=== PATIENT | female | born 1935 | race Caucasian/White ===

== ENCOUNTER 2022-11-27 09:14 | Outpatient (OUT) | payer MEDICARE, OTHER, SELFPAY ==
[2022-11-27 09:39] LABS: Basophils Percent Auto 0.4 % (0.2-2.0); Eosinophils Absolute Auto 0.2 10^3/uL (0.0-0.7); Eosinophils Percent Auto 2.2 % (0.9-7.0); Hematocrit 43.9 % (36.0-48.0); Hemoglobin 14.4 g/dL (12.0-16.0); Immature Granulocytes Abs Auto 0.03 10^3/uL (0.00-0.03); Immature Granulocytes Pct Auto 0.3 % (0.0-0.5); Lymphocytes Absolute Auto 1.8 10^3/uL (1.2-3.8); Lymphocytes Percent Auto 18.4 % (20.5-60.0); Mean Corpuscular HGB Conc 32.8 g/dL (29.9-35.2); Mean Corpuscular Hemoglobin 29.7 pg (26.7-34.0); Mean Corpuscular Volume 90.5 fL (81.0-99.0); Mean Platelet Volume 10.1 fL (9.5-13.5); Monocytes Absolute Auto 0.7 10^3/uL (0.3-0.8); Monocytes Percent Auto 6.8 % (1.7-12.0); Neutrophils Absolute Auto 6.9 10^3/uL (1.4-6.5); Neutrophils Percent Auto 71.9 % (43.0-75.0); Platelet Count 229 10^3/uL (150-450); Red Blood Count 4.85 10^6/uL (4.20-5.40); White Blood Count 9.6 10^3/uL (4.0-11.0)
[2022-11-27 09:53] LABS: Alanine Aminotransferase 23 U/L (14-59); Albumin Globulin Ratio 1.2; Albumin Level 4.5 g/dL (3.4-5.0); Alkaline Phosphatase 89 U/L (46-116); Anion Gap 12.8; Aspartate Amino Transferase 18 U/L (15-37); BUN Creatinine Ratio 24.4; Bilirubin Direct 0.2 mg/dL (0.0-0.2); Bilirubin Total 0.8 mg/dL (0.2-1.0); Calcium 9.9 mg/dL (8.5-10.1); Carbon Dioxide 29.8 mmol/L (21.0-32.0); Chloride 102 mmol/L (98-107); Cholesterol 154 mg/dL (<=200); Estimated GFR (African America >60 (>=60); Estimated GFR (Non-African Ame >60 (>=60); Globulin 3.6 g/dL; Glucose 125 mg/dL (74-106); HDL Cholesterol 77 mg/dL (40-60); Potassium 3.6 mmol/L (3.5-5.1); Sodium 141 mmol/L (136-145); Total Protein 8.1 g/dL (6.4-8.2); Triglycerides 95 mg/dL (<=150)
[2022-11-27 10:00] LABS: Estimated Average Glucose 137 mg/dL; Glycohemoglobin A1C 6.4 % (4.5-6.2)
[2022-11-27 10:11] LABS: Microalbumin Urine Random 1.5 mg/dL (<=30.0)
== END 2022-11-27 09:15 | disposition home or self-care (01) ==
LOC: LAB 09:18
PROVIDERS: PCP Family Medicine; Visit Provider Family Medicine
DX: E11.65 Type 2 diabetes mellitus with hyperglycemia (principal); E55.9 Vitamin D deficiency, unspecified; I10 Essential (primary) hypertension; Z79.899 Other long term (current) drug therapy; E78.5 Hyperlipidemia, unspecified
CPT/HCPCS: 36415; 80048; 80061; 80076; 82043; 82306; 83036; 85025

== ENCOUNTER 2023-05-30 11:33 | Outpatient (OUT) | payer MEDICARE, OTHER, SELFPAY ==
[2023-05-30 14:12] LABS: Estimated Average Glucose 143 mg/dL; Glycohemoglobin A1C 6.6 % (4.5-6.2)
== END 2023-05-30 11:34 | disposition home or self-care (01) ==
LOC: LAB 11:35
PROVIDERS: PCP Family Medicine; Visit Provider Family Medicine
DX: E11.65 Type 2 diabetes mellitus with hyperglycemia (principal)
CPT/HCPCS: 36415; 83036

== ENCOUNTER 2023-08-13 15:59 | Outpatient (OUT) | payer MEDICARE, OTHER, SELFPAY ==
--- NOTE | 2023-08-13 16:05 | XR_ITS ---
[address] [address] Patient Name: JOANNE WINSLOW MRN: [id number] date: 1935 Sex: F Assigned Patient Location: [facility] Current Patient Location: Accession/Order Number: [id number] Exam Date: 08/13/2023 16:10 Report Date: 08/14/2023 07:01 At the request of: BASIM NAZARIO Procedure: XR ankle LT min 3V PROCEDURE: XR ankle LT min 3V COMPARISON: None. HISTORY: Acute left ankle pain M25.572 FINDINGS: BONES:Suspected nondisplaced fracture along the inferior medial malleolus measuring 3 mma. Calcific densities along the lateral calcaneus seen on image #2 possibly representing avulsion fractures. Asymmetry of the tibiotalar joint with widening of the lateral joint space suggesting ankle instability. No dislocation. SOFT TISSUES:Moderate diffuse soft tissue swelling EFFUSION:Tibiotalar joint effusion OTHER: Negative. 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
--- OUTSIDE RECORDS SUMMARY | 2023-08-13 16:28 | XMS_ITS | CCD ---
Author Organization [facility] Care Team Providers Care Lens Matcher Name Role Phone MANSI, DR ISMAEL Avila Consulting Unavailable NADERER, DR ISMAEL Avila Primary Care Unavailable NADERER, DR ISMAEL Avila Admitting Unavailable NADERER, DR ISMAEL Avila Attending Unavailable NADERER, DR ISMAEL Avila Consulting Unavailable NADERER, DR ISMAEL Avila Primary Care Unavailable NADERER, DR ISMAEL Avila Admitting Unavailable NADERER, DR ISMAEL Avila Attending Unavailable NADERER, DR ISMAEL Avila Primary Care Unavailable MISC, DR MCKEE Admitting Unavailable MISC, DR MCKEE Attending Unavailable MISC, DR MCKEE Consulting Unavailable NADERER, DR ISMAEL Avila Consulting Unavailable NADERER, DR ISMAEL Avila Primary Care Unavailable NADERER, DR ISMAEL Avila Admitting Unavailable NADERER, DR ISMAEL Avila Attending Unavailable MD Tim Matias Attending Provider [phone] Ismael Nazario MD Primary Care Provider Tim Matias Attending Unavailable Polly, Tim Admitting Unavailable MANSI, ISMAEL Attending Unavailable PETITTKee, FARRAH Avila Attending Unavailable PETITTKee, FARRAH Avila Attending Unavailable SASHA KOCH Attending Unavailable Allergies Allergy Classification Reported Allergen(s) Allergy Type Date of Onset Reaction(s) Facility (1 source) Penicillins Drug allergy (disorder) 05-06-2020 [facility] Repository (4 sources) Omeprazole Drug Allergy 10-11-2022 Unknown [facility] Healthcare (4 sources) Penicillins Drug Allergy 09-11-2016 Itching [facility] Healthcare Medications Current Medications Medication Drug Class(es) Dates Sig (Normalized) Sig (Original) allopurinol 100 mg oral tablet (4 sources) Xanthine Oxidase Inhibitor take 1 tablet by mouth in the morning allopurinol (Zyloprim) 100 MG tablet Take 100 mg by mouth in the morning. 0 Active amLODIPine 5 mg oral tablet (4 sources) Dihydropyridine Calcium Channel Anders take 1 tablet by mouth in the morning amLODIPine (Norvasc) 5 MG tablet Take 5 mg by mouth in the morning. 0 Active atorvastatin 10 mg oral tablet (8 sources) HMG-CoA Reductase Inhibitor Start: 08-05-2022 take 1 tablet by mouth at bedtime atorvastatin (Lipitor) 10 MG tablet Take 10 mg by mouth at bedtime. 0 08/05/2022 Active Calcium Carbonate / Vitamin D (4 sources) take 1 tablet by mouth once in the morning Calcium Carbonate-Vitamin D (OSCAL 500/200 D-3 PO) Take 1 tablet by mouth in the morning and 1 tablet before bedtime. 0 Active fluticasone propionate 0.05 mg/actuat metered dose nasal spray (4 sources) Corticosteroid take 2 spray(s) nasal route in the morning fluticasone (Flonase) 50 MCG/ACT nasal spray Administer 2 sprays into each nostril in the morning. Shake gently. Before first use, prime pump. After use, clean tip and replace cap.. 0 Active losartan potassium 100 mg oral tablet (4 sources) Angiotensin 2 Receptor Anders take 1 tablet by mouth in the morning losartan (Cozaar) 100 MG tablet Take 1 tablet by mouth in the morning. 0 Active Magnesium Oxide (4 sources) take 1 tablet by mouth in the morning MAGNESIUM OXIDE 400 PO Take 1 tablet by mouth in the morning and 1 tablet before bedtime. 0 Active metFORMIN hydrochloride 500 mg oral tablet (4 sources) Biguanide take 1 tablet by mouth in the morning metFORMIN (Glucophage) 500 MG tablet Take 500 mg by mouth in the morning and 500 mg before bedtime. 0 Active omeprazole 20 mg delayed release oral capsule (4 sources) Proton Pump Inhibitor omeprazole (PriLOSEC) [address] capsule 1 capsule 1 (one) time each day at the same time. 0 Active torsemide 5 mg oral tablet (4 sources) Loop Diuretic Start: 09-23-2022 take 0.5 tablet by mouth once daily torsemide (Demadex) 5 MG tablet TAKE 1/2 (ONE-HALF) TABLET BY MOUTH ONCE DAILY 0 09/23/2022 Active triamcinolone acetonide 5 mg/ml topical cream (4 sources) Corticosteroid triamcinolone (Kenalog) 0.5 % cream Apply 1 application topically in the morning and 1 application in the evening and 1 application before bedtime. 0 Active Problems Active Problems Problem Classification Problem Date Documented Da te Episodic/Chronic Chronic kidney disease (4 sources) Chronic kidney disease stage 3; Translations: [Chronic kidney disease, stage III (moderate) (HCC)] Onset: 05-28-2023 05-28-2023 Chronic Diabetes mellitus with complications (9 sources) Type 2 diabetes mellitus with diabetic chronic kidney disease; Translations: [Type 2 diabetes mellitus] Onset: 11-30-2020 Chronic Diabetes mellitus without complication (4 sources) Type 2 diabetes mellitus without complications; Translations: [TYPE 2 DM WITHOUT COMPLICATIONS] Onset: 05-30-2021 Chronic Disorders of lipid metabolism (5 sources) Hyperlipidemia, unspecified; Translations: [Dyslipidemia] Onset: 12-01-2020 05-28-2023 Chronic Essential hypertension (7 sources) Essential (primary) hypertension; Translations: [Benign essential hypertension] Onset: 12-01-2020 05-28-2023 Chronic Gout and other crystal arthropathies (6 sources) Gouty arthropathy; Translations: [Gout, unspecified] Onset: 05-28-2023 05-28-2023 Chronic Hypertension with complications and secondary hypertension (1 source) Hypertensive chronic kidney disease with stage 1 through stage 4 chronic kidney disease, or unspecified chronic kidney disease; Translations: [HTN CKD W/STAGE 1-4 CKD/UNS CKD] Onset: 12-01-2020 Chronic Nutritional deficiencies (4 sources) Vitamin D deficiency; Translations: [Vitamin D deficiency, unspecified] Onset: 05-28-2023 05-28-2023 Chronic Other gastrointestinal disorders (5 sources) Oral phase dysphagia; Translations: [Dysphagia, oral phase] Onset: 05-28-2023 05-28-2023 Episodic Other upper respiratory disease (6 sources) Allergic rhinitis due to pollen; Translations: [Allergic rhinitis due to pollen] Onset: 05-28-2023 05-28-2023 Chronic Spondylosis; intervertebral disc disorders; other back problems (6 sources) Lumbosacral spondylosis without myelopathy; Translations: [Spondylosis without myelopathy or radiculopathy, lumbosacral region] Onset: 05-28-2023 05-28-2023 Chronic Unclassified (1 source) CHRN KIDNEY DISEASE STG 3 UNSP; Translations: [CHRN KIDNEY DISEASE STG 3 UNSP] Onset: 12-01-2020 Unclassified (1 source) 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, including shoulder; Translations: [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, including shoulder] Onset: 04-24-2023 Past or Other Problems Problem Classification Problem Date Documented Da te Episodic/Chronic Other aftercare (1 source) Other usp (current) drug therapy; Translations: [OTH 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 SPECIALIST CURRENT DRUG THERAPY] Onset: 12-01-2020 Episodic Results Test Name Value Interpretation Reference Range Facility [facility] HEMOGLOBIN A1Con 024 Glucose [Mass/Vol] 143 mg/dL [facility] HbA1c (Bld) [Mass fraction] 6.6 % High 4.5 - 6.2 % [facility] Comment on above: ADA RECOMMENDED LIMI T 4.0 - 6.0 ADA THERAPEUTIC TARGET < 7.0 ACTION SUGGESTED > 7.0 Interpretation and review of laboratory results Abnormal [facility] Ernesto 04-24-2023 L --- Specimen: [id number] Received: 04/24/23 Status: BREANNA Sushma Num: [id number] Spec Type: Surgical Subm Dr: Tim Matias MD Tissues: A Skin-Other than Cyst, tag, debridement or plastic repair (LT WRIST) Procedures: HE/5, Gross/Micro L4, HMB45, SOX-10 Age/ Patient Sex Location Account Attending Physician Joanne Hatfield 87/F [place] [id number] Tim Matias MD SPEC NUM: [id number] RECD: 04/24/23 STATUS: BREANNA ORDAZ NUM: [id number] DACIA: 04/24/[address] [facility] [address]: Tim Matias MD ENTERED: 04/24/[address]: KATHY TYPE: Surgical DEPT: S ORDERED: HE/5, Gross/Micro L4, HMB45, SOX-10 ORDERED: HE/5, Gross/Micro L4, HMB45, SOX-10 Pathological Diagnosis A. Skin of left wrist, re-excision: - Atypical junctional melanocytic proliferation, consistent with trailing edge of melanoma in situ. - Incidental benign intradermal nevus. - Solar elastosis and dermal fibrous scar. - Inked specimen margins free of neoplasm. - Note: Properly controlled SOX10 and HMB?45 immunohistochemical stains were performed on block A1. Nevus cells and intraepidermal melanoma cells express SOX10, while HMB?45 expression is markedly attenuated within the dermal nevus cells. This case was reviewed by Dr. Garcia, who concurs with the diagnosis. 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 The specimen is inked and sectioned transversely. Teaching Artist sections are submitted in 2 cassettes as follows: A1 - Central transverse sections A2 - Undesignated radial tips Specimen: [id number] Received: 04/24/23 Status: BREANNA Ordaz Num: [id number] Spec Type: Surgical Subm Dr: Tim Matias MD Tissues: A Skin-Other than Cyst, tag, debridement or plastic repair (LT WRIST) Procedures: HE/5, Gross/Micro L4, HMB45, SOX-10 Patient: Joanne Hatfield [id number] (Continued) Specimen: [id number] Received: 04/24/23 (Continued) Signed (signature on file) Nato Tobin MD 04/26/23 1258 Specimen: S2 Received: 04/24/23 Status: BREANNA Ordaz Num: [id number] Spec Type: Surgical Subm Dr: Tim Matias MD Tissues: A Skin-Other than Cyst, tag, debridement or plastic repair (LT WRIST) Procedures: HE/5, Gross/Micro L4, HMB45, SOX-10 Patient: Joanne Hatfield [id number] (Continued) Specimen: Received: 04/24/23 (Continued) Microscopic Description Two H E slides reviewed. The microscopic examination confirms the diagnosis. CPT Codes 96975, 42052, 67550 Specimen: [id number] Received: 04/24/23-1410 Status: BREANNA Ordaz Num: [id number] Spec Type: Surgical Subm Dr: Tim Matias MD Tissues: A Skin-Other than Cyst, tag, debridement or plastic repair (LT WRIST) Procedures: HE/5, Gross/Micro L4, HMB45, SOX-10 Patient: Joanne Hatfield [id number] (Continued) Signed (signature on file) Nato Tobin MD 04/26/23 1258 Normal [facility] MICROALBUMIN URINEon 022 Albumin, Urine 8.0 ug/mL Normal Not Estab. [facility] Comment on above: Performed By: #### A 1C #### [facility] [address] [place] [address] Haley Hardy VIT D 25-OH LABCORPon 2021 Vitamin D, 25-Hydroxy 34.4 ng/mL Normal 30.0-100.0 [facility] Comment on above: Result Comment: Macy min D deficiency has been defined by the [place] of [employer] and an Endocrine Society practice guideline as a level of serum 25-OH vitamin D less than 20 ng/mL (1,2). The Endocrine Society went on to further define vitamin D insufficiency as a level between 21 and 29 ng/mL (2). 1. IOM ([place] of [employer]). 2010. Dietary reference intakes for calcium and D. [place]: The National Academies Press. 2. Oc MF, Rosendo BROWN, Kel MENDEZ, et al. Evaluation, treatment, and prevention of vitamin D deficiency: an Endocrine Society clinical practice guideline. JCEM. 2010; 96(7):1911-30. Performed By: #### A 1C #### [facility] [address] [place] [address] Haley Hardy CBC AUTO DIFFon 11-27-2021 BASO # 0.0 103/ul Normal 0.0-0.1 [facility] Comment on above: Performed By: #### C BC #### [facility] [address] [place] [address] Dr. Cassidy Garcia Basophils/100 WBC (Bld) 0.6 % Normal 0.2-2.0 [facility] Comment on above: Performed By: #### C BC #### [facility] [address] [place] [address] Dr. Cassidy Garcia EO # 0.2 103/ul Normal 0.0-0.7 [facility] Comment on above: Performed By: #### C BC #### [facility] [address] [place] [address] Dr. Cassidy Garcia Eosinophils/100 WBC (Bld) 3.2 % Normal 0.9-7.0 [facility] Comment on above: Performed By: #### C BC #### [facility] [address] [place] [address] Dr. Cassidy Garcia Erythrocyte distribution width (RBC) [Ratio] 13.2 % Normal 11.0-15.0 [facility] Comment on above: Performed By: #### C BC #### [facility] [address] [place] [address] Dr. Cassidy Garcia Hematocrit (Bld) [Volume fraction] 43.6 % Normal 36.0-48.0 [facility] Comment on above: Performed By: #### C BC #### [facility] [address] [place] [address] Dr. Cassidy Garcia Hemoglobin (Bld) [Mass/Vol] 13.9 g/dL Normal 12.0-16.0 [facility] Comment on above: Performed By: #### C BC #### [facility] [address] [place] [address] Dr. Cassidy Garcia IG # 0.02 10e3/ul Normal 0.00-0.03 [facility] Comment on above: Performed By: #### C BC #### [facility] [address] [place] [address] Dr. Cassidy Garcia IG % 0.3 % Normal 0.0-0.5 [facility] Comment on above: Performed By: #### C BC #### [facility] [address] [place] [address] Dr. Cassidy Garcia LYMPH # 1.7 103/ul Normal 1.2-3.8 [facility] Comment on above: Performed By: #### C BC #### [facility] [address] [place] [address] Dr. Cassidy Garcia Lymphocytes/100 WBC (Bld) 25.2 % Normal 20.5-60.0 [facility] Comment on above: Performed By: #### C BC #### [facility] [address] [place] [address] Dr. Cassidy Garcia MANUAL DIFF REQ NO Normal [facility] Comment on above: Performed By: #### C BC #### [facility] [address] [place] [address] Dr. Cassidy Garcia MCH (RBC) [Entitic mass] 29.5 pg Normal 26.7-34.0 [facility] Comment on above: Performed By: #### C BC #### [facility] [address] [place] [address] Dr. Cassidy Garcia MCHC (RBC) [Mass/Vol] 31.9 g/dL Normal 29.9-35.2 [facility] Comment on above: Performed By: #### C BC #### [facility] [address] [place] [address] Dr. Cassidy Garcia MCV (RBC) [Entitic vol] 92.6 fL Normal 81.0-99.0 [facility] Comment on above: Performed By: #### C BC #### [facility] [address] [place] [address] Dr. Cassidy Garcia MONO # 0.6 103/ul Normal 0.3-0.8 [facility] Comment on above: Performed By: #### C BC #### [facility] [address] [place] [address] Dr. Cassidy Garcia Monocytes/100 WBC (Bld) 8.1 % Normal 1.7-12.0 [facility] Comment on above: Performed By: #### C BC #### [facility] [address] [place] [address] Dr. Cassidy Garcia NEUT # 4.3 103/ul Normal 1.4-6.5 [facility] Comment on above: Performed By: #### C BC #### [facility] [address] [place] [address] Dr. Cassidy Garcia Neutrophils/100 WBC (Bld) 62.6 % Normal 43.0-75.0 [facility] Comment on above: Performed By: #### C BC #### [facility] [address] [place] [address] Dr. Cassidy Garcia Platelet mean volume (Bld) [Entitic vol] 11.9 fL Normal 9.5-13.5 [facility] Comment on above: Performed By: #### C BC #### [facility] [address] [place] [address] Dr. Cassidy Garcia PLT 153 103/ul Normal 150-450 [facility] Comment on above: Performed By: #### C BC #### [facility] [address] [place] [address] Dr. Cassidy Garcia RBC 4.71 106/ul Normal 4.20-5.40 [facility] Comment on above: Performed By: #### C BC #### [facility] [address] [address] [address] Cassidy Garcia WBC 6.8 103/ul Normal 4.0-11.0 [facility] Comment on above: Performed By: #### C BC #### [facility] [address] [place] [address] Dr. Cassidy Garcia GLYCOHEMOGLOBIN A1Con 2021 ADA RECOMMENDATION SEE BELOW Normal [facility] Comment on above: Result Comment: ADA RECOMMENDED LIMIT 4.0 - 6.0 ADA THERAPEUTIC TARGET < 7.0 ACTION SUGGESTED > 7.0 Performed By: #### A 1C #### [facility] [address] [place] [address] Dr. Cassidy Garcia Glucose [Mass/Vol] 137 mg/dL Normal [facility] Comment on above: Performed By: #### A 1C #### [facility] [address] [place] [address] Dr. Cassidy Garcia HbA1c (Bld) [Mass fraction] 6.4 % Critically high 4.5-6.2 [facility] Comment on above: Performed By: #### A 1C #### [facility] [address] [place] [address] Dr. Cassidy Garcia LIPID PROFILEon 11-27-2021 CHOL-HDL RATIO NORM SEE BELOW Normal [facility] Comment on above: Result Comment: 3.3 - 4.4 LOW RISK 4.4 - 7.1 AVERAGE RISK 7.1 - 11.0 MODERATE RISK >11.0 HIGH RISK Performed By: #### A 1C #### [facility] [address] [place] [address] Haley Hayley Cholesterol [Mass/Vol] 157 mg/dL Normal <=200 [facility] Comment on above: Performed By: #### A 1C #### [facility] [address] [place] [address] Haley Hayley Cholesterol in HDL [Mass/Vol] 66 mg/dL Critically high 40-60 [facility] Comment on above: Performed By: #### A 1C #### [facility] [address] [place], [place] [address] Haley Hayley Cholesterol in LDL [Mass/Vol] 72.8 mg/dL Normal [facility] Comment on above: Performed By: #### A 1C #### [facility] [address] [place], [place] [address] Haley Hayley Cholesterol.total/C holesterol in HDL [Mass ratio] 2.4 {ratio} Normal [facility] Comment on above: Performed By: #### A 1C #### [facility] [address] [place], [place] [address] Haley Hayley HDL NORMAL > or = 60 mg/dl - LO W CARDIOVASCULAR RISK <40 mg/dl - HIGH CARDIOVASCULAR RISK Normal [facility] Comment on above: Performed By: #### A 1C #### [facility] [address] [place], [place] [address] Haley Hayley LDL CALC NORMAL SEE BELOW Normal [facility] Comment on above: Result Comment: <100 mg/dl OPTIMAL 100 - 129 mg/dl NEAR OR ABOVE OPTIMAL 130 - 159 mg/dl BORDERLINE HIGH 160 - 189 mg/dl HIGH >190 mg/dl VERY HIGH Performed By: #### A 1C #### [facility] [address] [place], [place] [address] Haley Hayley Triglyceride [Mass/Vol] 91 mg/dL Normal <=150 [facility] Comment on above: Performed By: #### A 1C #### [facility] [address] [place], [place] [address] Haley Hayley VLDL CALC 18.2 mg/dL Normal [facility] Comment on above: Performed By: #### A 1C #### [facility] [address] [place], [place] [address] Haley Hayley PROF CHEM 8 (BAS METB)on Anion gap [Moles/Vol] 15.3 mmol/L Normal [facility] Comment on above: Performed By: #### A 1C #### [facility] [address] [place], [place] [address] Haley Hayley Calcium [Mass/Vol] 9.8 mg/dL Normal 8.5-10.1 [facility] Comment on above: Performed By: #### A 1C #### [facility] [address] [id number] Haley Hayley Chloride [Moles/Vol] 101 mmol/L Normal 98-107 [facility] Comment on above: Performed By: #### A 1C #### [facility] [address] [address] Haley Hayley CO2 [Moles/Vol] 27.3 mmol/L Normal 21.0-32.0 [facility] Comment on above: Performed By: #### A 1C #### [facility] [address] [place] [address] Haley Hayley Creatinine [Mass/Vol] 0.81 mg/dL Normal 0.55-1.02 [facility] Comment on above: Performed By: #### A 1C #### [facility] [address] [place] [address] Haley Hayley EGFR-AF SWAZI >60 Normal >=60 [facility] Comment on above: Result Comment: Prev iously reported as: (blank) On 11/27/2021 11:29 By DM9 Performed By: #### A 1C #### [facility] [address] [place] [address] Haley Hayley EGFR-NON AF SWAZI >60 Normal >=60 [facility] Comment on above: Result Comment: Prev iously reported as: (blank) On 11/27/2021 11:29 By DM9 Performed By: #### A 1C #### [facility] [address] [place] [address] Haley Hayley Glucose [Mass/Vol] 110 mg/dL Critically high 74-106 [facility] Comment on above: Performed By: #### A 1C #### [facility] [address] [place] [address] Haley Hayley Potassium [Moles/Vol] 3.6 mmol/L Normal 3.5-5.1 [facility] Comment on above: Performed By: #### A 1C #### [facility] [address] [place] [address] Haley Hayley Sodium [Moles/Vol] 140 mmol/L Normal 136-145 [facility] Comment on above: Performed By: #### A 1C #### [facility] [address] [place] [address] Haley Hardy Urea nitrogen [Mass/Vol] 20.0 mg/dL Critically high 7.0-18.0 [facility] Comment on above: Performed By: #### A 1C #### [facility] [address] [place] [address] Haley Hardy Urea nitrogen/Creatinine [Mass ratio] 24.7 mg/mg Normal [facility] Comment on above: Performed By: #### A 1C #### [facility] [address] [place] [address] Haley Hardy SGOTon 11-27-2021 AST [Catalytic activity/Vol] 21 U/L Normal 15-37 [facility] Comment on above: Performed By: #### A 1C #### [facility] [address] [place] [address] Haley Hardy SGPTon 11-27-2021 ALT [Catalytic activity/Vol] 20 U/L Normal 14-59 [facility] Comment on above: Performed By: #### A 1C #### [facility] [address] [place] [address] Haley Hardy GLYCOHEMOGLOBIN A1Con 2021 ADA RECOMMENDATION ADA THERAPEUTIC TARG ET 6.0 - 7.0 ACTION SUGGESTED > 7.0 Normal [facility] Comment on above: Performed By: #### A 1C #### [facility] [address] [place] [address] Dr. Cassidy Garcia Glucose [Mass/Vol] 146 mg/dL Normal [facility] Comment on above: Performed By: #### A 1C #### [facility] [address] [place] [address] Dr. Cassidy Garcia HbA1c (Bld) [Mass fraction] 6.7 % Critically high <=6.0 [facility] Comment on above: Performed By: #### A 1C #### [facility] [address] [place] [address] Dr. Cassidy Garcia ALBUMINon 11-30-2020 Albumin [Mass/Vol] 4.0 g/dL Normal 3.5-5.0 [facility] Comment on above: Performed By: #### M CRR #### [facility] [address] [place], [place] [id number] Haley Hayley CBC AUTO DIFFon 11-30-2020 BASO # 0.0 103/ul Normal 0.0-0.1 [facility] Comment on above: Performed By: #### C BC #### [facility] [address] [place], [place] [id number] Haley Hayley Basophils/100 WBC (Bld) 0.6 % Normal 0.2-2.0 [facility] Comment on above: Performed By: #### C BC #### [facility] [address] [place] [address] Haley Hayley EO # 0.2 103/ul Normal 0.0-0.7 [facility] Comment on above: Performed By: #### C BC #### [facility] [address] [place], [place] [id number] Haley Hayley Eosinophils/100 WBC (Bld) 2.6 % Normal 0.9-7.0 [facility] Comment on above: Performed By: #### C BC #### [facility] [address] [place] [address] Haley Hayley Erythrocyte distribution width (RBC) [Ratio] 12.9 % Normal 11.0-15.0 [facility] Comment on above: Performed By: #### C BC #### [facility] [address] [place] [address] Haley Hayley Hematocrit (Bld) [Volume fraction] 39.6 % Normal 36.0-48.0 [facility] Comment on above: Performed By: #### C BC #### [facility] [address] [place], [place] [id number] Haley Hayley Hemoglobin (Bld) [Mass/Vol] 12.8 g/dL Normal 12.0-16.0 [facility] Comment on above: Performed By: #### C BC #### [facility] [address] [place] [address] Haleydonny Hardy IG # 0.02 10e3/ul Normal 0.00-0.03 [facility] Comment on above: Performed By: #### C BC #### [facility] [address] [place] [address] Haleydnony Hardy IG % 0.3 % Normal 0.0-0.5 [facility] Comment on above: Performed By: #### C BC #### [facility] [address] [place] [address] Haley Hayley LYMPH # 2.0 103/ul Normal 1.2-3.8 [facility] Comment on above: Performed By: #### C BC #### [facility] [address] [place] [address] Haley Hardy Lymphocytes/100 WBC (Bld) 27.1 % Normal 20.5-60.0 [facility] Comment on above: Performed By: #### C BC #### [facility] [address] [place] [address] Haley Hardy MANUAL DIFF REQ NO Normal [facility] Comment on above: Performed By: #### C BC #### [facility] [address] [place] [address] Haleydonny Hardy MCH (RBC) [Entitic mass] 30.2 pg Normal 26.7-34.0 [facility] Comment on above: Performed By: #### C BC #### [facility] [address] [place] [address] Haley Hardy MCHC (RBC) [Mass/Vol] 32.3 g/dL Normal 29.9-35.2 [facility] Comment on above: Performed By: #### C BC #### [facility] [address] [place] [address] Haleydonny Hardy MCV (RBC) [Entitic vol] 93.4 fL Normal 81.0-99.0 [facility] Comment on above: Performed By: #### C BC #### [facility] [address] [place] [address] Haley Hayley MONO # 0.6 103/ul Normal 0.3-0.8 [facility] Comment on above: Performed By: #### C BC #### [facility] [address] [place], [place] [id number] Haley Lunaen Monocytes/100 WBC (Bld) 8.7 % Normal 1.7-12.0 [facility] Comment on above: Performed By: #### C BC #### [facility] [address] [place], [place] [id number] Haley Hardy NEUT # 4.4 103/ul Normal 1.4-6.5 [facility] Comment on above: Performed By: #### C BC #### [facility] [address] [place], [place] [id number] Haley Hardy Neutrophils/100 WBC (Bld) 60.7 % Normal 43.0-75.0 [facility] Comment on above: Performed By: #### C BC #### [facility] [address] [place], [place] [id number] Haley Hardy Platelet mean volume (Bld) [Entitic vol] 11.4 fL Normal 9.5-13.5 [facility] Comment on above: Performed By: #### C BC #### [facility] [address] [place], [place] [address] Haley Hayley PLT 175 103/ul Normal 150-450 [facility] Comment on above: Performed By: #### C BC #### [facility] [address] [place], [place] [address] Haley Hayley RBC 4.24 106/ul Normal 4.20-5.40 [facility] Comment on above: Performed By: #### C BC #### [facility] [address] [place], [place] [id number] Haley Hayley WBC 7.2 103/ul Normal 4.0-11.0 [facility] Comment on above: Performed By: #### C BC #### [facility] [address] [place], [place] [id number] Haley Hardy GLYCOHEMOGLOBIN A1Con 2020 ADA RECOMMENDATION ADA THERAPEUTIC TARG ET 6.0 - 7.0 ACTION SUGGESTED > 7.0 Normal [facility] Comment on above: Performed By: #### A 1C #### [facility] [address] [place], [place] [address] Haley Hayley Glucose [Mass/Vol] 140 mg/dL Normal [facility] Comment on above: Performed By: #### A 1C #### [facility] [address] [place], [place] [address] Haley Hayley HbA1c (Bld) [Mass fraction] 6.5 % Critically high <=6.0 [facility] Comment on above: Performed By: #### A 1C #### [facility] [address] [place], [place] [address] Haley Hayley LIPID PROFILEon 11-30-2020 CHOL-HDL RATIO NORM SEE BELOW Normal [facility] Comment on above: Result Comment: 3.3 - 4.4 LOW RISK 4.4 - 7.1 AVERAGE RISK 7.1 - 11.0 MODERATE RISK >11.0 HIGH RISK Performed By: #### A ST, ALT, LIPID #### [facility] [address] [place] [id number] Haley Hayley Cholesterol [Mass/Vol] 130 mg/dL Normal <=200 [facility] Comment on above: Performed By: #### A ST, ALT, LIPID #### [facility] [address] [id number] Haley Hayley Cholesterol in HDL [Mass/Vol] 73 mg/dL Normal [facility] Comment on above: Performed By: #### A ST, ALT, LIPID #### [facility] [address] [id number] Haley Hayley Cholesterol in LDL [Mass/Vol] 40.0 mg/dL Normal [facility] Comment on above: Performed By: #### A ST, ALT, LIPID #### [facility] [address] [id number] Haley Hayley Cholesterol.total/C holesterol in HDL [Mass ratio] 1.8 {ratio} Normal [facility] Comment on above: Performed By: #### A ST, ALT, LIPID #### [facility] [address] [place], [place] [address] Haley Hayley HDL NORMAL > or = 60 mg/dl - LO W CARDIOVASCULAR RISK <40 mg/dl - HIGH CARDIOVASCULAR RISK Normal [facility] Comment on above: Performed By: #### A ST, ALT, LIPID #### [facility] [address] [place], [place] [address] Haleydonny Hardy LDL CALC NORMAL SEE BELOW Normal [facility] Comment on above: Result Comment: <100 mg/dl OPTIMAL 100 - 129 mg/dl NEAR OR ABOVE OPTIMAL 130 - 159 mg/dl BORDERLINE HIGH 160 - 189 mg/dl HIGH >190 mg/dl VERY HIGH Performed By: #### A ST, ALT, LIPID #### [facility] [address] [id number] Haleydonny Hardy Triglyceride [Mass/Vol] 85 mg/dL Normal <=150 [facility] Comment on above: Performed By: #### A ST, ALT, LIPID #### [facility] [address] [place], [place] [address] Haleydonny Hardy VLDL CALC 17.0 mg/dL Normal [facility] Comment on above: Performed By: #### A ST, ALT, LIPID #### [facility] [address] [place], [place] [address] Haley Hardy MAGNESIUMon 11-30-2020 Magnesium [Mass/Vol] 1.5 mg/dL Critically low 1.6-2.3 [facility] Comment on above: Performed By: #### A 1C #### [facility] [address] [id number] Haley Hardy MICROALB CREAT RATIO RANDOMo n 11-30-2020 mALB <1.3 Normal <=30.0 [facility] Comment on above: Performed By: #### M CRR #### [facility] [address] [place], [place] [address] Haley Hayley MALB CR RATIO RANGE SEE BELOW Normal [facility] Comment on above: Result Comment: NO M ICROALBUMINURIA 0-29 MG/G CLINICAL MICROALBUMINURIA 30-300 MG/G MACROALBUMINURIA >300 MG/G Performed By: #### M CRR #### [facility] [address] [place], [place] [address] Haley Hayley URINE CREAT 20.84 mg/dL Normal 20.00-300.00 [facility] Comment on above: Performed By: #### M CRR #### [facility] [address] [place] [address] Haley Hayley PHOSPHORUSon 11-30-2020 Phosphate [Mass/Vol] 3.1 mg/dL Normal 2.5-4.5 [facility] Comment on above: Performed By: #### A 1C #### [facility] [address] [place] [address] Haley Hayley PROF CHEM 8 (BAS METB)on Anion gap [Moles/Vol] 16.5 mmol/L Normal [facility] Comment on above: Performed By: #### A 1C #### [facility] [address] [place], [place] [address] Haley Hayley Calcium [Mass/Vol] 10.0 mg/dL Normal 8.4-10.2 [facility] Comment on above: Performed By: #### A 1C #### [facility] [address] [place], [place] [address] Haley Hayley Chloride [Moles/Vol] 102 mmol/L Normal 98-107 [facility] Comment on above: Performed By: #### A 1C #### [facility] [address] [place], [place] [address] Haley Hayley CO2 [Moles/Vol] 26.8 mmol/L Normal 22.0-30.0 [facility] Comment on above: Performed By: #### A 1C #### [facility] [address] [place], [place] [address] Haley Hayley Creatinine [Mass/Vol] 0.89 mg/dL Normal 0.52-1.04 [facility] Comment on above: Performed By: #### A 1C #### [facility] [address] [place], [place] [address] Haley Hayley EGFR-AF SWAZI >60 Normal >=60 [facility] Comment on above: Performed By: #### A 1C #### [facility] [address] [place], [place] [address] Haley Hayley EGFR-NON AF SWAZI 60 mL/min/1.73m2 Normal >=60 [facility] Comment on above: Performed By: #### A 1C #### [facility] [address] [place], [place] [address] Haley Hayley Glucose [Mass/Vol] 87 mg/dL Normal 74-106 [facility] Comment on above: Performed By: #### A 1C #### [facility] [address] [id number] Haley Hayley Potassium [Moles/Vol] 3.3 mmol/L Critically low 3.4-5.0 [facility] Comment on above: Performed By: #### A 1C #### [facility] [address] [place], [place] [address] Haley Hayley Sodium [Moles/Vol] 142 mmol/L Normal 137-145 [facility] Comment on above: Performed By: #### A 1C #### [facility] [address] [place], [place] [address] Haley Hayley Urea nitrogen [Mass/Vol] 18.0 mg/dL Critically high 7.0-17.0 [facility] Comment on above: Performed By: #### A 1C #### [facility] [address] [place], [place] [address] Haley Hayley Urea nitrogen/Creatinine [Mass ratio] 20.2 mg/mg Normal [facility] Comment on above: Performed By: #### A 1C #### [facility] [address] [place], [place] [address] Haley Lunaen SGOTon 11-30-2020 AST [Catalytic activity/Vol] 22 U/L Normal 14-36 [facility] Comment on above: Performed By: #### A ST, ALT, LIPID #### [facility] [address] [place], [place] [address] Haleydonny Lunaen SGPTon 11-30-2020 ALT [Catalytic activity/Vol] 23 U/L Normal 9-52 [facility] Comment on above: Performed By: #### A ST, ALT, LIPID #### [facility] [address] [place], [place] [address] Haley Hayley UA RANDOM W/MICROSCOPICon BACTERIA SMALL Abnormal NONE SEEN [facility] Comment on above: Performed By: #### U AMIC #### [facility] [address] [place] [address] Haley Hayley Bilirubin Ql (U) Negative Normal NEGATIVE [facility] Comment on above: Performed By: #### U AMIC #### [facility] [address] [place] [address] Haley Hayley CAST NONE SEEN Normal NONE SEEN [facility] Comment on above: Performed By: #### U AMIC #### [facility] [address] [place] [address] Haley Hayley Clarity (U) CLEAR Normal CLEAR [facility] Comment on above: Performed By: #### U AMIC #### [facility] [address] [place] [address] Haley Hayley Color (U) LT. YELLOW Normal YELLOW [facility] Comment on above: Performed By: #### U AMIC #### [facility] [address] [place] [address] Haley Hayley Crystals LM Nom (Urine sed) NONE SEEN Normal NONE SEEN [facility] Comment on above: Performed By: #### U AMIC #### [facility] [address] [place] [address] Haley Hayley Epithelial cells LM Ql (Urine sed) FEW Abnormal NONE SEEN /RARE [facility] Comment on above: Performed By: #### U AMIC #### [facility] [address] [place] [address] Haley Hayley Glucose Ql (U) Negative Normal NEGATIVE [facility] Comment on above: Performed By: #### U AMIC #### [facility] [address] [place] [address] Haley Hayley Hemoglobin Ql (U) SMALL Abnormal NEGATIVE [facility] Comment on above: Performed By: #### U AMIC #### [facility] [address] [place] [address] Haley Hayley Ketones Ql (U) Negative Normal NEGATIVE [facility] Comment on above: Performed By: #### U AMIC #### [facility] [address] [place], [place] [address] Haley Hayley LEUKOCYTES Negative Normal NEGATIVE [facility] Comment on above: Performed By: #### U AMIC #### [facility] [address] [id number] Haley Hayley MUCOUS NONE SEEN Normal NONE SEEN [facility] Comment on above: Performed By: #### U AMIC #### [facility] [address] [id number] Haley Hayley Nitrite Ql (U) Negative Normal NEGATIVE [facility] Comment on above: Performed By: #### U AMIC #### [facility] [address] [place] [address] Haley Hayley pH (U) 5.5 [pH] Normal 5-9 [facility] Comment on above: Performed By: #### U AMIC #### [facility] [address] [place] [address] Haley Hayley RBC 0-2 Normal 0-2 [facility] Comment on above: Performed By: #### U AMIC #### [facility] [address] [place], [place] [address] Haley Hardy SPEC GRAVITY 1.010 Normal 1.005-<=1.025 [facility] Comment on above: Performed By: #### U AMIC #### [facility] [address] [place] [address] Haley Hayley UA PROTEIN Negative Normal NEGATIVE/ TRACE [facility] Comment on above: Performed By: #### U AMIC #### [facility] [address] [place] [address] Haley Hayley Urobilinogen Qn (U) 0.2 {Rivera'U}/dL Normal 0.2 - 1. 0 [facility] Comment on above: Performed By: #### U AMIC #### [facility] [address] [place], [place] [address] Haley Hayley WBC 0-2 Abnormal NONE SEEN [facility] Comment on above: Performed By: #### U AMIC #### [facility] [address] [place], [place] [address] Haley Hardy URIC ACID SERUMon 11-30-2020 Urate [Mass/Vol] 4.8 mg/dL Normal 2.5-6.2 [facility] Comment on above: Performed By: #### A 1C #### [facility] [address] [id number] Haley Hardy Vital Signs Date Time Vital Sign Value Performing Clinician Karoni lity 05-28-2023 09:17-0500 Body height 152.4 cm Ismael Nazario MD Work Phone: [facility] 05-28-2023 09:17-0500 Body mass index (BMI) [Ratio] 19.92 kg/m2 Ismael Nazario MD Work Phone: [facility] 05-28-2023 09:17-0500 Body temperature 97.5 [degF] Ismael Nazario MD Work Phone: [facility] 05-28-2023 09:17-0500 Body weight 46.27 kg Ismael Nazario MD Work Phone: [facility] 05-28-2023 09:17-0500 Diastolic blood pressure 60 mm[Hg] Ismael Nazario MD Work Phone: [facility] 05-28-2023 09:17-0500 Heart rate 99 /min Ismael Nazario MD Work Phone: [facility] 05-28-2023 09:17-0500 SaO2% (BldA) [Mass fraction] 98 % Ismael Nazario MD Work Phone: [facility] 05-28-2023 09:17-0500 Systolic blood pressure 120 mm[Hg] Ismael Nazario MD Work Phone: [facility] Healthcare Encounters Encounter Date Encounter Type Care Provider Facility Start: 06-24-2023 End: 06-24-2023 ambulatory SASHA A FELTWALDEMAR Not Available Start: 06-12-2023 End: 06-12-2023 ambulatory FARRAH KAUFMAN Not Available Start: 05-30-2023 Clinisync Result Encounter Ismael Nazario MD Work Phone: [facility] Unsolicited Start: 05-30-2023 Clinisync Result Encounter Ismael Nazario MD Work Phone: [facility] Unsolicited Start: 05-28-2023 Bamboo flowsheet Ismael Nazario MD Work Phone: [facility] Start: 05-28-2023 Bamboo flowsheet Ismael Nazario MD Work Phone: [facility] Start: 05-28-2023 End: 05-28-2023 ambulatory ISMAEL NAZARIO Not Available Start: 05-28-2023 End: 05-28-2023 Office outpatient visit 25 minutes Ismael Nazario MD Work Phone: [facility] Comment on above: Type 2 diabetes liu itus with hyperglycemia, without long-term current use of insulin (CMS/HCC) (Primary Dx); Essential hypertension, benign (CMS/HCC); Lumbosacral spondylosis without myelopathy; Arthritis, gouty; Seasonal allergic rhinitis due to pollen; Oral phase dysphagia Start: 04-24-2023 End: 04-24-2023 ambulatory Tim Matias Facility:[facility] Start: 04-24-2023 End: 04-24-2023 ambulatory MD Tim Matias Work Phone: [facility] Work Phone: Start: 04-24-2023 End: 04-24-2023 Departed Referred MD Tim Matias Work Phone: [facility] [employer] Work Phone: Start: 03-28-2023 End: 03-28-2023 ambulatory FARRAH KAUFMAN Not Available Start: 11-27-2021 End: 11-28-[address] ISMAEL NAZARIO Facility:[facility] Start: 05-30-2021 End: 05-31-[address] ISMAEL NAZARIO Facility:[facility] Start: 11-30-2020 End: 12-01-[address] ISMAEL NAZARIO Facility:[facility] Procedures Date Procedure Procedure Detail Performing Clinician Start: 05-30-2023 MLR HEMOGLOBIN A1C Ismael Nazario MD Work Phone: Plan of Treatment Date Care Activity Detail Author Start: 11-28-2023 Urine screening for protein Diabetes: Urine Protein Screening [facility] Start: 11-25-2023 End: 11-25-2023 Patient encounter procedure 11/25/2023 9:00 AM EDT Office Visit [facility] [address] [place] [phone] Ismael Nazario MD [address] [place] [phone] [facility] Start: 06-12-2023 End: 06-12-2023 Patient encounter procedure 06/12/2023 1:00 PM EST [facility] [address] [place] [address] Farrah Kaufman MD [address] [place], [place] [id number] [facility] Start: 05-28-2023 End: 05-28-2024 Hemoglobin A1c measurement Hemoglobin A1c Lab Routine Type 2 diabetes mellitus with hyperglycemia, without long-term current use of insulin ([facility]) Expected: 05/28/2023 (Approximate), Expires: 05/28/2024 [facility] Work Phone: Comment on above: Expected: 05/28/2023 (Approximate), Expires: 05/28/2024 Start: 05-28-2023 End: 05-28-2023 Patient encounter procedure 05/28/2023 9:15 AM EST Office Visit [facility] [address] [place] [phone] Ismael Nazario MD [address] [place] [phone] Arrived [facility] Comment on above: Arrived Start: 1954 Urine screening for protein Diabetes: Urine Protein Screening [facility] Start: 1944 Glaucoma screening Diabetes: R etinopathy Screening [facility] Start: 1934 Hemoglobin A1c measurement Diabetes: Hemoglobin A1C [facility] Start: 1934 Medicare Annual Wellness (AWV) Medicare Annual Wellness (AWV) [facility] Payers Date Payer Category Payer Self-pay 2023 Unknown [id number] 2022 Unknown [employer] [id number] 2022-Present [address] [facility] [address] [place] [place] [id number] 1999 Medicare MEDICARE MEDICAR E PART B [id number] 1999-[place] [address] [place] [address] Medicare [id number] 1959 Medicare [id number] 1959 Unknown [id number] 1934 Unknown [id number] 3 1934 Unknown [id number] 3 1934 Unknown [id number] 3 1934 Unknown [id number] 3 1934 Unknown [id number] 59 1934 Unknown [id number] 59 1934 Unknown [id number] 59 1934 Unknown [id number] 59 Medicare Medicare Outpatient [id number] 7D [id number] Unknown [id number] 1 Social History Date Type Detail Facility Tobacco smoking stat us IAIS Unknown if ever smoked [facility] Work Phone: Start: 1935 Sex Assigned At Female F [facility] Start: 10-11-2022 End: 05-28-2023 Tobacco smoking status IAIS Never smoked tobacco [facility] Start: 04-26-2023 End: 05-28-2023 Alcohol intake Lifetime non-drinker (finding) [facility] Start: 04-26-2023 End: 05-28-2023 History of Social function [facility] Start: 04-26-2023 End: 05-28-2023 Tobacco use panel [facility] Start: 1935 Sex Assigned At Not on file [facility] Start: 05-28-2023 Tobacco use and exposure Smokeless tobacco non-user [facility] History of Present illness Narrative 05-28-2023 Ismael Nazario MD - 05/28/2023 10:03 AM Rober Nazario MD - 05/28/2023 10:02 AM Rober Nazario MD - 05/28/2023 10:02 AM Rober Nazario MD - 05/28/2023 10:02 AM EST Note Date & Type Note Facility 05-28-2023 History of Presen t illness Narrative Associated Problem(s): Type 2 diabetes mellitus with hyperglycemia, without long-term current use of insulin ([facility]) Not checking BS and due for A1C. Stick to ADA diet and limit carbs. Associated Problem(s): Oral phase dysphagia Occasional problems swallowing and evidence of postnasal drip. Resume flonase. If persists will order speech therapy swallow evaluation. Associated Problem(s): Lumbosacral spondylosis without myelopathy Pain stable and use OTC PRN. Associated Problem(s): Essential hypertension, benign (CMS/HCC) BP controlled and monitor PRN. Associated Problem(s): Arthritis, gouty No flares and continue allopurinol. Associated Problem(s): Allergic rhinitis due to pollen Evidence of allergies and resume flonase. Subjective Patient ID: Joanne Hatfield is a 88 y.o. female who presents for Follow-up (Trouble swallowing). F/u DM, HTN, back pain, gout, and allergies. Not checking BS away from office. Tries to eat well and stick to ADA diet but reports occasional splurges. Denies signs of elevated BS such as polyuria, polyphagia or polydipsia. Checking BP PRN and typically controlled. BP normal today. Taking medication daily and tolerating without side effects. Back pain stable. Pain in low back and across top hips. Pain worse with walking and standing. Using OTC PRN and pain tolerable. Gout controlled with allopurinol. No joint pain or stiffness. No swelling or erythema. Allergies controlled with medication. No congestion or rhinorrhea. No MENDEZ or sinus pressure. Ears not plugged or popping. C/o occasional problems swallowing. Notice when eating and worse with meats. Feels like not able to swallow down but doesn't cause coughing or choking. At times will bring up phlegm. Doesn't feel like something sticks in throat. No problems with liquids. No reflux or burning. Review of Systems Respiratory: Negative for cough, shortness of breath and wheezing. Cardiovascular: Negative for chest pain and palpitations. Gastrointestinal: Negative for abdominal pain, diarrhea, nausea and vomiting. Genitourinary: Negative for dysuria. Objective Physical Exam Constitutional: General: She is not in acute distress. Appearance: Normal appearance. HENT: Head: Normocephalic. Right Ear: Tympanic membrane normal. Left Ear: Tympanic membrane normal. Eyes: Extraocular Movements: Extraocular movements intact. Pupils: Pupils are equal, round, and reactive to light. Cardiovascular: Rate and Rhythm: Normal rate and regular rhythm. Heart sounds: No murmur heard. No friction rub. No gallop. Pulmonary: Effort: Pulmonary effort is normal. Breath sounds: Normal breath sounds. No wheezing, rhonchi or rales. Abdominal: General: Bowel sounds are normal. There is no distension. Palpations: Abdomen is soft. Tenderness: There is no abdominal tenderness. There is no guarding or rebound. Musculoskeletal: Cervical back: Neck supple. Right lower leg: No edema. Left lower leg: No edema. Neurological: Mental Status: She is alert. Assessment/Plan Problem List Items Addressed This Visit Essential hypertension, benign (CMS/HCC) BP controlled and monitor PRN. Allergic rhinitis due to pollen Evidence of allergies and resume flonase. Arthritis, gouty No flares and continue allopurinol. Lumbosacral spondylosis without myelopathy Pain stable and use OTC PRN. Type 2 diabetes mellitus with hyperglycemia, without long-term current use of insulin (CMS/HCC) - Primary Not checking BS and due for A1C. Stick to ADA diet and limit carbs. Relevant Orders Hemoglobin A1c Oral phase dysphagia Occasional problems swallowing and evidence of postnasal drip. Resume flonase. If persists will order speech therapy swallow evaluation. documented in this encounter [facility] Evaluation note Note Date & Type Note Facility Evaluation note No assessment information [facility] Work Phone: Evaluation note Note Date & Type Note Facility Evaluation note Diagnosis Type 2 diabetes mellitus with hyperglycemia, without long-term current use of insulin ([facility])- Primary Essential hypertension, benign ([facility]) Essential hypertension, benign Lumbosacral spondylosis without myelopathy Arthritis, gouty Gouty arthropathy, unspecified Seasonal allergic rhinitis due to pollen Oral phase dysphagia Dysphagia, oral phase documented in this encounter [facility] Summary Purpose Family History No Family History Records FoundNo Family History Records FoundNo Family History Records Found Advance Directives No Advanced Directives Records FoundNo Advanced Directives Records FoundNo Advanced Directives Records Found Additional Source Comments INFORMATION SOURCE (unrecogn ized section and content) DATE CREATED AUTHOR 11/28/2021 [facility] DATE CREATED AUTHOR AUTHOR'S ORGANIZ ATION 06/11/2023 [facility] DATE CREATED AUTHOR AUTHOR'S ORGANIZ ATION 06/24/2023 [facility] Care Teams (unrecognized sec tion and content) Team Status: Inactive Member Role Status Dates Tim Matias MD Attending Provider Active Lens Matcher Relationship Specialty Start Date End Date Ismael Nazario MD [address] [place] [phone] PCP - General Family Medicine 05/28/23 Lens Matcher Relationship Specialty Start Date End Date Ismael Nazario MD [address] [place] [phone] PCP - General Family Medicine 05/28/23 Lens Matcher Relationship Specialty Start Date End Date Ismael Nazario MD [address] [place] [phone] PCP - General Family Medicine 05/28/23 Goals (unrecognized section and content) Goals may be documented in a n alternate section Reason for Visit (unrecogniz ed section and content) Reason Comments Follow-up Trouble swallowing FOR RECORDS PERTAINING TO PATIENTS WHO ARE OR HAVE BEEN ENROLLED IN A CHEMICAL DEPENDENCY/SUBSTANCEABUSE PROGRAM, SOME INFORMATION MAY BE OMITTED. This clinical summary was aggregated from multiple sources. Caution should be exercised in using it in the provision of clinical care. This summary normalizes information from multiple sources, and as a consequence, information in this document may materially change the coding, format and clinical context of patient data. In addition, data may be omitted in some cases. CLINICAL DECISIONS SHOULD BE BASED ON THE PRIMARY CLINICAL RECORDS. [facility]. provides no warranty or guarantee of the accuracy or completeness of information in this document.
== END 2023-08-13 16:00 | disposition home or self-care (01) ==
LOC: RAD 16:00
PROVIDERS: PCP Family Medicine; Visit Provider Family Medicine
DX: M25.572 Pain in left ankle and joints of left foot (principal)
CPT/HCPCS: 73610

== ENCOUNTER 2023-08-14 08:36 | Outpatient (OUT) | payer MEDICARE, OTHER, SELFPAY ==
--- NOTE | 2023-08-14 | XR_ITS ---
The [place] [id number] Patient Name: JOANNE WINSLOW MRN: [id number] date: 1935 Sex: F Assigned Patient Location: Current Patient Location: Accession/Order Number: [id number] Exam Date: 08/14/2023 09:30 Report Date: 08/14/2023 12:08 At the request of: JOSE GIBBONS Procedure: XR ankle LT min 3V PROCEDURE: XR foot LT min 3V, XR ankle LT min 3V COMPARISON: 08/13/2023 HISTORY: LEFT FOOT PAIN FINDINGS: BONES:Mild corticated calcific density along the lateral calcaneus suspicious for an avulsion fracture. No additional fracture. No dislocation. Degenerative changes throughout the foot with joint space narrowing. Focal area of sclerosis in the second metatarsal diaphysis and neck near zone of transition with no cortical breakthrough, nonspecific but possibly an enostosis. SOFT TISSUES:Moderate diffuse soft tissue swelling of the ankle and foot EFFUSION:Small joint effusion OTHER: Negative. XR/XR ankle LT min 3V IMPRESSION: Suspected avulsion fracture along the lateral calcaneus. Consider CT scan for further evaluation Electronically authenticated by: GIL VILLALPANDO Date: 08/14/2023 12:08
--- NOTE | 2023-08-14 | XR_ITS ---
The [address] [address] Patient Name: JOANNE WINSLOW MRN: [id number] date: 1935 Sex: F Assigned Patient Location: Current Patient Location: Accession/Order Number: [id number] Exam Date: 08/14/2023 09:55 Report Date: 08/14/2023 12:08 At the request of: JOSE GIBBONS Procedure: XR foot LT min 3V PROCEDURE: XR foot LT min 3V, XR ankle LT min 3V COMPARISON: 08/13/2023 HISTORY: LEFT FOOT PAIN FINDINGS: BONES:Mild corticated calcific density along the lateral calcaneus suspicious for an avulsion fracture. No additional fracture. No dislocation. Degenerative changes throughout the foot with joint space narrowing. Focal area of sclerosis in the second metatarsal diaphysis and neck near zone of transition with no cortical breakthrough, nonspecific but possibly an enostosis. SOFT TISSUES:Moderate diffuse soft tissue swelling of the ankle and foot EFFUSION:Small joint effusion OTHER: Negative. XR/XR foot LT min 3V IMPRESSION: Suspected avulsion fracture along the lateral calcaneus. Consider CT scan for further evaluation Electronically authenticated by: GIL VILLALPANDO Date: 08/14/2023 12:08
--- OUTSIDE RECORDS SUMMARY | 2023-08-14 08:59 | XMS_ITS | CCD ---
Author Organization [facility] Care Team Providers Care Camouflage Specialist Name Role Phone MANSI, DR ISMAEL Avila [...] Attending Unavailable MD Tim Matias Attending Provider [phone] Ismael Nazario MD Primary Care Provider Tim Matias Attending Unavailable Polly, Tim Admitting Unavailable MANSI, ISMAEL Attending Unavailable PETITTKee, FARRAH Avila Attending Unavailable PETITTKee, FARRAH Avila Attending Unavailable SASHA KOCH Attending Unavailable Allergies Allergy Classification Reported Allergen(s) Allergy Type Date of Onset Reaction(s) Facility (1 source) Penicillins Drug allergy (disorder) 05-06-2020 [facility] (4 sources) Omeprazole Drug Allergy 10-11-[address] [facility] (4 sources) Penicillins Drug Allergy 09-11-[address] [facility] Medications Current Medications Medication Drug Class(es) [...] te Episodic/Chronic Other aftercare (1 source) Other salvage determiner (current) drug therapy; Translations: [OTH MANAGER OF DEVELOPMENT CURRENT DRUG THERAPY] Onset: 12-01-2020 Episodic Results Test Name Value Interpretation Reference Range Facility [facility] HEMOGLOBIN A1Con 024 Glucose [Mass/Vol] 143 mg/dL [facility] HbA1c (Bld) [Mass fraction] 6.6 % High 4.5 - 6.2 % [facility] Comment on above: ADA RECOMMENDED LIMI T 4.0 - 6.0 ADA THERAPEUTIC TARGET < 7.0 ACTION SUGGESTED > 7.0 Interpretation and review of laboratory results Abnormal [facility] Ernesto 04-24-2023 L --- Specimen: [id number] Received: 04/24/23 Status: BREANNA Sushma Num: [id number] Spec Type: Surgical Subm Dr: Tim Matias MD Tissues: A Skin-Other than Cyst, tag, debridement or plastic repair (LT WRIST) Procedures: HE/5, Gross/Micro L4, HMB45, SOX-10 Age/ Patient Sex Location Account Attending Physician Joanne Hatfield 87/F [place] [id number] Tim Matias MD SPEC NUM: [id number] RECD: 04/24/23 STATUS: BREANNA ORDAZ NUM: [id number] DACIA: 04/24/23 [facility] DR: Tim Matias MD ENTERED: 04/24/23 ADALBERTO [...] The specimen is inked and sectioned transversely. Harmonica Maker sections are submitted in 2 cassettes as follows: A1 - Central transverse sections A2 - Undesignated radial tips Specimen: [id number] Received: 04/24/23 Status: BREANNA Ordaz Num: [id number] Spec Type: Surgical Subm Dr: Tim Matias MD Tissues: A Skin-Other than Cyst, tag, debridement or plastic repair (LT WRIST) Procedures: HE/5, Gross/Micro L4, HMB45, SOX-10 Patient: Joanne Hatfield [id number] (Continued) Specimen: [id number] Received: 04/24/23 (Continued) Signed (signature on file) Nato Tobin MD 04/26/23 1258 Specimen: S2 Received: 04/24/23 Status: BREANNA Ordaz Num: [id number] Spec Type: Surgical Subm Dr: Tim Matias MD Tissues: A Skin-Other than Cyst, tag, debridement or plastic repair (LT WRIST) Procedures: HE/5, Gross/Micro L4, HMB45, SOX-10 Patient: Joanne Hatfield [id number] (Continued) Specimen: Received: 04/24/23 (Continued) Microscopic Description Two H E slides reviewed. The microscopic examination confirms the diagnosis. CPT Codes 56541, 59855, 21041 Specimen: [id number] Received: 04/24/23-1410 Status: BREANNA Ordaz Num: [id number] Spec Type: Surgical Subm Dr: Tim Matias MD Tissues: A Skin-Other than Cyst, tag, debridement or plastic repair (LT WRIST) Procedures: HE/5, Gross/Micro L4, HMB45, SOX-10 Patient: Joanne Hatfield [id number] (Continued) Signed (signature on file) Nato Tobin MD 04/26/23 1258 Normal [facility] MICROALBUMIN URINEon 022 Albumin, Urine 8.0 ug/mL Normal Not Estab. [facility] Comment on above: Performed By: #### A 1C #### [facility] [address] [place] [address] Haley Hardy VIT D 25-OH LABCORPon 2021 Vitamin D, 25-Hydroxy 34.4 ng/mL Normal 30.0-100.0 [facility] Comment on above: Result Comment: Macy min D deficiency has been defined by the [place] of Medicine and an Endocrine Society practice guideline as a level of serum 25-OH vitamin D less than 20 ng/mL (1,2). The Endocrine Society went on to further define vitamin D insufficiency as a level between 21 and 29 ng/mL (2). 1. IOM ([place] of [employer]). 2010. Dietary reference intakes for calcium and D. [place]: The National Academies Press. 2. Oc MF, Rosendo BROWN, Kel MENDEZ, et al. Evaluation, treatment, and prevention of vitamin D deficiency: an Endocrine Society clinical practice guideline. JCEM. 2010; 96(7):1911-30. Performed By: #### A 1C #### [facility] [address] [place] [address] Haley Hardy CBC AUTO DIFFon 11-27-2021 BASO # 0.0 103/ul Normal 0.0-0.1 [facility] Comment on above: Performed By: #### C BC #### [facility] [address] [place] [address] Dr. Cassidy Garcia Basophils/100 WBC (Bld) 0.6 % Normal 0.2-2.0 [facility] Comment on above: Performed By: #### C BC #### [facility] [address] [place] [address] Dr. Cassidy Garcia EO # 0.2 103/ul Normal 0.0-0.7 [facility] Comment on above: Performed By: #### C BC #### [facility] [address] [place] [address] Dr. Cassidy Garcia Eosinophils/100 WBC (Bld) 3.2 % Normal 0.9-7.0 [facility] Comment on above: Performed By: #### C BC #### [facility] [address] [place] [address] Dr. Cassidy Garcia Erythrocyte distribution width (RBC) [Ratio] 13.2 % Normal 11.0-15.0 [facility] Comment on above: Performed By: #### C BC #### [facility] [address] [place] [address] Dr. Cassidy Garcia Hematocrit (Bld) [Volume fraction] 43.6 % Normal 36.0-48.0 [facility] Comment on above: Performed By: #### C BC #### [facility] [address] [place] [address] Dr. Cassidy Garcia Hemoglobin (Bld) [Mass/Vol] 13.9 g/dL Normal 12.0-16.0 [facility] Comment on above: Performed By: #### C BC #### [facility] [address] [place] [address] Dr. Cassidy Garcia IG # 0.02 10e3/ul Normal 0.00-0.03 [facility] Comment on above: Performed By: #### C BC #### [facility] [address] [place] [address] Dr. Cassidy Garcia IG % 0.3 % Normal 0.0-0.5 [facility] Comment on above: Performed By: #### C BC #### [facility] [address] [place] [address] Dr. Cassidy Garcia LYMPH # 1.7 103/ul Normal 1.2-3.8 [facility] Comment on above: Performed By: #### C BC #### [facility] [address] [place] [address] Dr. Cassidy Garcia Lymphocytes/100 WBC (Bld) 25.2 % Normal 20.5-60.0 [facility] Comment on above: Performed By: #### C BC #### [facility] [address] [place] [address] Dr. Cassidy Garcia MANUAL DIFF REQ NO Normal [facility] Comment on above: Performed By: #### C BC #### [facility] [address] [place] [address] Dr. Cassidy Garcia MCH (RBC) [Entitic mass] 29.5 pg Normal 26.7-34.0 [facility] Comment on above: Performed By: #### C BC #### [facility] [address] [place] [address] Dr. Cassidy Garcia MCHC (RBC) [Mass/Vol] 31.9 g/dL Normal 29.9-35.2 [facility] Comment on above: Performed By: #### C BC #### [facility] [address] [place] [address] Dr. Cassidy Garcia MCV (RBC) [Entitic vol] 92.6 fL Normal 81.0-99.0 [facility] Comment on above: Performed By: #### C BC #### [facility] [address] [place] [address] Dr. Cassidy Garcia MONO # 0.6 103/ul Normal 0.3-0.8 [facility] Comment on above: Performed By: #### C BC #### [facility] [address] [place] [address] Dr. Cassidy Garcia Monocytes/100 WBC (Bld) 8.1 % Normal 1.7-12.0 [facility] Comment on above: Performed By: #### C BC #### [facility] [address] [place] [address] Dr. Cassidy Garcia NEUT # 4.3 103/ul Normal 1.4-6.5 [facility] Comment on above: Performed By: #### C BC #### [facility] [address] [place] [address] Dr. Cassidy Garcia Neutrophils/100 WBC (Bld) 62.6 % Normal 43.0-75.0 [facility] Comment on above: Performed By: #### C BC #### [facility] [address] [place] [address] Dr. Cassidy Garcia Platelet mean volume (Bld) [Entitic vol] 11.9 fL Normal 9.5-13.5 [facility] Comment on above: Performed By: #### C BC #### [facility] [address] [place] [address] Dr. Cassidy Garcia PLT 153 103/ul Normal 150-450 [facility] Comment on above: Performed By: #### C BC #### [facility] [address] [place] [address] Dr. Cassidy Garcia RBC 4.71 106/ul Normal 4.20-5.40 [facility] Comment on above: Performed By: #### C BC #### [facility] [address] [address] [address] Cassidy Garcia WBC 6.8 103/ul Normal 4.0-11.0 [facility] Comment on above: Performed By: #### C BC #### [facility] [address] [place] [address] Dr. Cassidy Garcia GLYCOHEMOGLOBIN A1Con 2021 ADA RECOMMENDATION SEE BELOW Normal [facility] Comment on above: Result Comment: ADA RECOMMENDED LIMIT 4.0 - 6.0 ADA THERAPEUTIC TARGET < 7.0 ACTION SUGGESTED > 7.0 Performed By: #### A 1C #### [facility] [address] [place] [address] Dr. Cassidy Garcia Glucose [Mass/Vol] 137 mg/dL Normal [facility] Comment on above: Performed By: #### A 1C #### [facility] [address] [place] [address] Dr. Cassidy Garcia HbA1c (Bld) [Mass fraction] 6.4 % Critically high 4.5-6.2 [facility] Comment on above: Performed By: #### A 1C #### [facility] [address] [place] [address] Dr. Cassidy Garcia LIPID PROFILEon 11-27-2021 CHOL-HDL RATIO NORM SEE BELOW Normal [facility] Comment on above: Result Comment: 3.3 - 4.4 LOW RISK 4.4 - 7.1 AVERAGE RISK 7.1 - 11.0 MODERATE RISK >11.0 HIGH RISK Performed By: #### A 1C #### [facility] [address] [place] [address] Haley Hayley Cholesterol [Mass/Vol] 157 mg/dL Normal <=200 [facility] Comment on above: Performed By: #### A 1C #### [facility] [address] [place] [address] Haley Hayley Cholesterol in HDL [Mass/Vol] 66 mg/dL Critically high 40-60 [facility] Comment on above: Performed By: #### A 1C #### [facility] [address] [place], [place] [address] Haley Hay[place] Cholesterol in LDL [Mass/Vol] 72.8 mg/dL Normal [facility] Comment on above: Performed By: #### A 1C #### [facility] [address] [place], [place] [address] Haley Hay[place] Cholesterol.total/C holesterol in HDL [Mass ratio] 2.4 {ratio} Normal [facility] Comment on above: Performed By: #### A 1C #### [facility] [address] [place], [place] [address] Haley [place] HDL NORMAL > or = 60 mg/dl - LO W CARDIOVASCULAR RISK <40 mg/dl - HIGH CARDIOVASCULAR RISK Normal [facility] Comment on above: Performed By: #### A 1C #### [facility] [address] [place], [place] [address] Haley [place] LDL CALC NORMAL SEE BELOW Normal [facility] Comment on above: Result Comment: <100 mg/dl OPTIMAL 100 - 129 mg/dl NEAR OR ABOVE OPTIMAL 130 - 159 mg/dl BORDERLINE HIGH 160 - 189 mg/dl HIGH >190 mg/dl VERY HIGH Performed By: #### A 1C #### [facility] [address] [place], [place] [address] Haley Hay[place] Triglyceride [Mass/Vol] 91 mg/dL Normal <=150 [facility] Comment on above: Performed By: #### A 1C #### [facility] [address] [place], [place] [address] Haley Hay[place] VLDL CALC 18.2 mg/dL Normal [facility] Comment on above: Performed By: #### A 1C #### [facility] [address] [place], [place] [address] Haley Hayley PROF CHEM 8 (BAS METB)on Anion gap [Moles/Vol] 15.3 mmol/L Normal [facility] Comment on above: Performed By: #### A 1C #### [facility] [address] [place], [place] [address] Haley Hay[place] Calcium [Mass/Vol] 9.8 mg/dL Normal 8.5-10.1 [facility] Comment on above: Performed By: #### A 1C #### [facility] [address] [id number] Haley Hayley Chloride [Moles/Vol] 101 mmol/L Normal 98-107 [facility] Comment on above: Performed By: #### A 1C #### [facility] [address] [address] Haley Hay[place] CO2 [Moles/Vol] 27.3 mmol/L Normal 21.0-32.0 [facility] Comment on above: Performed By: #### A 1C #### [facility] [address] [place] [address] Haley Hayley Creatinine [Mass/Vol] 0.81 mg/dL Normal 0.55-1.02 [facility] Comment on above: Performed By: #### A 1C #### [facility] [address] [place] [address] Haley Hay[place] EGFR-AF PAKISTANI >60 Normal >=60 [facility] Comment on above: Result Comment: Prev iously reported as: (blank) On 11/27/2021 11:29 By DM9 Performed By: #### A 1C #### [facility] [address] [place] [address] Haley Hay[place] EGFR-NON AF PAKISTANI >60 Normal >=60 [facility] Comment on above: Result Comment: Prev iously reported as: (blank) On 11/27/2021 11:29 By DM9 Performed By: #### A 1C #### [facility] [address] [place] [address] Haley Hayley Glucose [Mass/Vol] 110 mg/dL Critically high 74-106 [facility] Comment on above: Performed By: #### A 1C #### [facility] [address] [place] [address] Haley Hayley Potassium [Moles/Vol] 3.6 mmol/L Normal 3.5-5.1 [facility] Comment on above: Performed By: #### A 1C #### [facility] [address] [place] [address] Haley Hayley Sodium [Moles/Vol] 140 mmol/L Normal 136-145 [facility] Comment on above: Performed By: #### A 1C #### [facility] [address] [place] [address] Haley Hardy Urea nitrogen [Mass/Vol] 20.0 mg/dL Critically high 7.0-18.0 [facility] Comment on above: Performed By: #### A 1C #### [facility] [address] [place] [address] Haley Hardy Urea nitrogen/Creatinine [Mass ratio] 24.7 mg/mg Normal [facility] Comment on above: Performed By: #### A 1C #### [facility] [address] [place] [address] Haley Hardy SGOTon 11-27-2021 AST [Catalytic activity/Vol] 21 U/L Normal 15-37 [facility] Comment on above: Performed By: #### A 1C #### [facility] [address] [place] [address] Haley Hardy SGPTon 11-27-2021 ALT [Catalytic activity/Vol] 20 U/L Normal 14-59 [facility] Comment on above: Performed By: #### A 1C #### [facility] [address] [place] [address] Haley Hardy GLYCOHEMOGLOBIN A1Con 2021 ADA RECOMMENDATION ADA THERAPEUTIC TARG ET 6.0 - 7.0 ACTION SUGGESTED > 7.0 Normal [facility] Comment on above: Performed By: #### A 1C #### [facility] [address] [place] [address] Dr. Cassidy Garcia Glucose [Mass/Vol] 146 mg/dL Normal [facility] Comment on above: Performed By: #### A 1C #### [facility] [address] [place] [address] Dr. Cassidy Garcia HbA1c (Bld) [Mass fraction] 6.7 % Critically high <=6.0 [facility] Comment on above: Performed By: #### A 1C #### [facility] [address] [place] [address] Dr. Cassidy Garcia ALBUMINon 11-30-2020 Albumin [Mass/Vol] 4.0 g/dL Normal 3.5-5.0 [facility] Comment on above: Performed By: #### M CRR #### [facility] [address] [place], [place] [id number] Haley Hay[place] CBC AUTO DIFFon 11-30-2020 BASO # 0.0 103/ul Normal 0.0-0.1 [facility] Comment on above: Performed By: #### C BC #### [facility] [address] [place], [place] [id number] Haley Hay[place] Basophils/100 WBC (Bld) 0.6 % Normal 0.2-2.0 [facility] Comment on above: Performed By: #### C BC #### [facility] [address] [place] [address] Haley Hay[place] EO # 0.2 103/ul Normal 0.0-0.7 [facility] Comment on above: Performed By: #### C BC #### [facility] [address] [place], [place] [id number] Haley Hay[place] Eosinophils/100 WBC (Bld) 2.6 % Normal 0.9-7.0 [facility] Comment on above: Performed By: #### C BC #### [facility] [address] [place] [address] Haley Hayley Erythrocyte distribution width (RBC) [Ratio] 12.9 % Normal 11.0-15.0 [facility] Comment on above: Performed By: #### C BC #### [facility] [address] [place] [address] Haley Hay[place] Hematocrit (Bld) [Volume fraction] 39.6 % Normal 36.0-48.0 [facility] Comment on above: Performed By: #### C BC #### [facility] [address] [place], [place] [id number] Haley Hay[place] Hemoglobin (Bld) [Mass/Vol] 12.8 g/dL Normal 12.0-16.0 [facility] Comment on above: Performed By: #### C BC #### [facility] [address] [place] [address] Haleydonny Hardy IG # 0.02 10e3/ul Normal 0.00-0.03 [facility] Comment on above: Performed By: #### C BC #### [facility] [address] [place] [address] Haleydonny Hardy IG % 0.3 % Normal 0.0-0.5 [facility] Comment on above: Performed By: #### C BC #### [facility] [address] [place] [address] Haley Hayley LYMPH # 2.0 103/ul Normal 1.2-3.8 [facility] Comment on above: Performed By: #### C BC #### [facility] [address] [place] [address] Haley Hardy Lymphocytes/100 WBC (Bld) 27.1 % Normal 20.5-60.0 [facility] Comment on above: Performed By: #### C BC #### [facility] [address] [place] [address] Haley Hardy MANUAL DIFF REQ NO Normal [facility] Comment on above: Performed By: #### C BC #### [facility] [address] [place] [address] Haleydonny Hardy MCH (RBC) [Entitic mass] 30.2 pg Normal 26.7-34.0 [facility] Comment on above: Performed By: #### C BC #### [facility] [address] [place] [address] Haley Hardy MCHC (RBC) [Mass/Vol] 32.3 g/dL Normal 29.9-35.2 [facility] Comment on above: Performed By: #### C BC #### [facility] [address] [place] [address] Haleydonny Hardy MCV (RBC) [Entitic vol] 93.4 fL Normal 81.0-99.0 [facility] Comment on above: Performed By: #### C BC #### [facility] [address] [place] [address] Haley Hayley MONO # 0.6 103/ul Normal 0.3-0.8 [facility] Comment on above: Performed By: #### C BC #### [facility] [address] [place], [place] [id number] Haley Lunaen Monocytes/100 WBC (Bld) 8.7 % Normal 1.7-12.0 [facility] Comment on above: Performed By: #### C BC #### [facility] [address] [place], [place] [id number] Haley Hardy NEUT # 4.4 103/ul Normal 1.4-6.5 [facility] Comment on above: Performed By: #### C BC #### [facility] [address] [place], [place] [id number] Haley Hardy Neutrophils/100 WBC (Bld) 60.7 % Normal 43.0-75.0 [facility] Comment on above: Performed By: #### C BC #### [facility] [address] [place], [place] [id number] Haley Hardy Platelet mean volume (Bld) [Entitic vol] 11.4 fL Normal 9.5-13.5 [facility] Comment on above: Performed By: #### C BC #### [facility] [address] [place], [place] [id number] Haley Hay[place] PLT 175 103/ul Normal 150-450 [facility] Comment on above: Performed By: #### C BC #### [facility] [address] [place], [place] [id number] Haley Hay[place] RBC 4.24 106/ul Normal 4.20-5.40 [facility] Comment on above: Performed By: #### C BC #### [facility] [address] [place], [place] [id number] Haley Hay[place] WBC 7.2 103/ul Normal 4.0-11.0 [facility] Comment on above: Performed By: #### C BC #### [facility] [address] [place], [place] [id number] Haley Hardy GLYCOHEMOGLOBIN A1Con 2020 ADA RECOMMENDATION ADA THERAPEUTIC TARG ET 6.0 - 7.0 ACTION SUGGESTED > 7.0 Normal [facility] Comment on above: Performed By: #### A 1C #### [facility] [address] [place], [place] [address] Haley Hay[place] Glucose [Mass/Vol] 140 mg/dL Normal [facility] Comment on above: Performed By: #### A 1C #### [facility] [address] [place], [place] [address] Haley Hayley HbA1c (Bld) [Mass fraction] 6.5 % Critically high <=6.0 [facility] Comment on above: Performed By: #### A 1C #### [facility] [address] [place], [place] [address] Haley Hayley LIPID PROFILEon 11-30-2020 CHOL-HDL RATIO NORM SEE BELOW Normal [facility] Comment on above: Result Comment: 3.3 - 4.4 LOW RISK 4.4 - 7.1 AVERAGE RISK 7.1 - 11.0 MODERATE RISK >11.0 HIGH RISK Performed By: #### A ST, ALT, LIPID #### [facility] [address] [id number] Haley Hayley Cholesterol [Mass/Vol] 130 mg/dL Normal <=200 [facility] Comment on above: Performed By: #### A ST, ALT, LIPID #### [facility] [address] [id number] Haley Hay[place] Cholesterol in HDL [Mass/Vol] 73 mg/dL Normal [facility] Comment on above: Performed By: #### A ST, ALT, LIPID #### [facility] [address] [id number] Haley Hayley Cholesterol in LDL [Mass/Vol] 40.0 mg/dL Normal [facility] Comment on above: Performed By: #### A ST, ALT, LIPID #### [facility] [address] [id number] Haley Hay[place] Cholesterol.total/C holesterol in HDL [Mass ratio] 1.8 {ratio} Normal [facility] Comment on above: Performed By: #### A ST, ALT, LIPID #### [facility] [address] [place], [place] [address] Haley Hay[place] HDL NORMAL > or = 60 mg/dl - LO W CARDIOVASCULAR RISK <40 mg/dl - HIGH CARDIOVASCULAR RISK Normal [facility] Comment on above: Performed By: #### A ST, ALT, LIPID #### [facility] [address] [place], [place] [address] Haleydonny Hardy LDL CALC NORMAL SEE BELOW Normal [facility] Comment on above: Result Comment: <100 mg/dl OPTIMAL 100 - 129 mg/dl NEAR OR ABOVE OPTIMAL 130 - 159 mg/dl BORDERLINE HIGH 160 - 189 mg/dl HIGH >190 mg/dl VERY HIGH Performed By: #### A ST, ALT, LIPID #### [facility] [address] [id number] Haleydonny Hardy Triglyceride [Mass/Vol] 85 mg/dL Normal <=150 [facility] Comment on above: Performed By: #### A ST, ALT, LIPID #### [facility] [address] [place], [place] [address] Haleydonny Hardy VLDL CALC 17.0 mg/dL Normal [facility] Comment on above: Performed By: #### A ST, ALT, LIPID #### [facility] [address] [place], [place] [address] Haley Hardy MAGNESIUMon 11-30-2020 Magnesium [Mass/Vol] 1.5 mg/dL Critically low 1.6-2.3 [facility] Comment on above: Performed By: #### A 1C #### [facility] [address] [id number] Haley Hardy MICROALB CREAT RATIO RANDOMo n 11-30-2020 mALB <1.3 Normal <=30.0 [facility] Comment on above: Performed By: #### M CRR #### [facility] [address] [place], [place] [address] Haley Hayley MALB CR RATIO RANGE SEE BELOW Normal [facility] Comment on above: Result Comment: NO M ICROALBUMINURIA 0-29 MG/G CLINICAL MICROALBUMINURIA 30-300 MG/G MACROALBUMINURIA >300 MG/G Performed By: #### M CRR #### [facility] [address] [place], [place] [address] Haley Hayley URINE CREAT 20.84 mg/dL Normal 20.00-300.00 [facility] Comment on above: Performed By: #### M CRR #### [facility] [address] [place] [address] Haley Hayley PHOSPHORUSon 11-30-2020 Phosphate [Mass/Vol] 3.1 mg/dL Normal 2.5-4.5 [facility] Comment on above: Performed By: #### A 1C #### [facility] [address] [place] [address] Haley Hayley PROF CHEM 8 (BAS METB)on Anion gap [Moles/Vol] 16.5 mmol/L Normal [facility] Comment on above: Performed By: #### A 1C #### [facility] [address] [place], [place] [id number] Haley Hayley Calcium [Mass/Vol] 10.0 mg/dL Normal 8.4-10.2 [facility] Comment on above: Performed By: #### A 1C #### [facility] [address] [place], [place] [id number] Haley Hayley Chloride [Moles/Vol] 102 mmol/L Normal 98-107 [facility] Comment on above: Performed By: #### A 1C #### [facility] [address] [place], [place] [id number] Haley Hayley CO2 [Moles/Vol] 26.8 mmol/L Normal 22.0-30.0 [facility] Comment on above: Performed By: #### A 1C #### [facility] [address] [place], [place] [id number] Haley Hayley Creatinine [Mass/Vol] 0.89 mg/dL Normal 0.52-1.04 [facility] Comment on above: Performed By: #### A 1C #### [facility] [address] [place], [place] [id number] Haley Hayley EGFR-AF PAKISTANI >60 Normal >=60 [facility] Comment on above: Performed By: #### A 1C #### [facility] [address] [place], [place] [id number] Haley Hayley EGFR-NON AF PAKISTANI 60 mL/min/1.73m2 Normal >=60 [facility] Comment on above: Performed By: #### A 1C #### [facility] [address] [place], [place] [address] Haley Hayley Glucose [Mass/Vol] 87 mg/dL Normal 74-106 [facility] Comment on above: Performed By: #### A 1C #### [facility] [address] [id number] Haley Hayley Potassium [Moles/Vol] 3.3 mmol/L Critically low 3.4-5.0 [facility] Comment on above: Performed By: #### A 1C #### [facility] [address] [place], [place] [id number] Haley Hayley Sodium [Moles/Vol] 142 mmol/L Normal 137-145 [facility] Comment on above: Performed By: #### A 1C #### [facility] [address] [place], [place] [id number] Haley Hayley Urea nitrogen [Mass/Vol] 18.0 mg/dL Critically high 7.0-17.0 [facility] Comment on above: Performed By: #### A 1C #### [facility] [address] [place], [place] [id number] Haley Hayley Urea nitrogen/Creatinine [Mass ratio] 20.2 mg/mg Normal [facility] Comment on above: Performed By: #### A 1C #### [facility] [address] [place], [place] [id number] Haley Lunaen SGOTon 11-30-2020 AST [Catalytic activity/Vol] 22 U/L Normal 14-36 [facility] Comment on above: Performed By: #### A ST, ALT, LIPID #### [facility] [address] [place], [place] [id number] Haleydonny Lunaen SGPTon 11-30-2020 ALT [Catalytic activity/Vol] 23 U/L Normal 9-52 [facility] Comment on above: Performed By: #### A ST, ALT, LIPID #### [facility] [address] [place], [place] [id number] Haley Hayley UA RANDOM W/MICROSCOPICon BACTERIA SMALL Abnormal NONE SEEN The [facility] Comment on above: Performed By: #### U AMIC #### [facility] [address] [place] [address] Haley Hayley Bilirubin Ql (U) Negative Normal NEGATIVE [facility] Comment on above: Performed By: #### U AMIC #### [facility] [address] [place] [address] Haley Hayley CAST NONE SEEN Normal NONE SEEN The [facility] Comment on above: Performed By: #### U AMIC #### [facility] [address] [place] [address] Haley Hayley Clarity (U) CLEAR Normal CLEAR [facility] Comment on above: Performed By: #### U AMIC #### [facility] [address] [place] [address] Haley Hayley Color (U) LT. YELLOW Normal YELLOW [facility] Comment on above: Performed By: #### U AMIC #### [facility] [address] [place] [address] Haley Hayley Crystals LM Nom (Urine sed) NONE SEEN Normal NONE SEEN [facility] Comment on above: Performed By: #### U AMIC #### [facility] [address] [place] [address] Haley Hayley Epithelial cells LM Ql (Urine sed) FEW Abnormal NONE SEEN /RARE [facility] Comment on above: Performed By: #### U AMIC #### [facility] [address] [place] [address] Haley Hayley Glucose Ql (U) Negative Normal NEGATIVE [facility] Comment on above: Performed By: #### U AMIC #### [facility] [address] [place] [address] Haley Hayley Hemoglobin Ql (U) SMALL Abnormal NEGATIVE [facility] Comment on above: Performed By: #### U AMIC #### [facility] [address] [place] [address] Haley Hayley Ketones Ql (U) Negative Normal NEGATIVE [facility] Comment on above: Performed By: #### U AMIC #### [facility] [address] [place], [place] [id number] Haley Hayley LEUKOCYTES Negative Normal NEGATIVE [facility] Comment on above: Performed By: #### U AMIC #### [facility] [address] [id number] Haley Hayley MUCOUS NONE SEEN Normal NONE SEEN The [facility] Comment on above: Performed By: #### U AMIC #### [facility] [address] [id number] Haley Hayley Nitrite Ql (U) Negative Normal NEGATIVE [facility] Comment on above: Performed By: #### U AMIC #### [facility] [address] [place] [address] Haley Hayley pH (U) 5.5 [pH] Normal 5-9 [facility] Comment on above: Performed By: #### U AMIC #### [facility] [address] [place] [address] Haley Hayley RBC 0-2 Normal 0-2 [facility] Comment on above: Performed By: #### U AMIC #### [facility] [address] [place], [place] [id number] Haley Hardy SPEC GRAVITY 1.010 Normal 1.005-<=1.025 [facility] Comment on above: Performed By: #### U AMIC #### [facility] [address] [place] [address] Haley Hayley UA PROTEIN Negative Normal NEGATIVE/ TRACE [facility] Comment on above: Performed By: #### U AMIC #### [facility] [address] [place] [address] Haley Hayley Urobilinogen Qn (U) 0.2 {Rivera'U}/dL Normal 0.2 - 1. 0 [facility] Comment on above: Performed By: #### U AMIC #### [facility] [address] [place], [place] [id number] Haley Hayley WBC 0-2 Abnormal NONE SEEN The [facility] Comment on above: Performed By: #### U AMIC #### [facility] [address] [place], [place] [address] Haley Hardy URIC ACID SERUMon 11-30-2020 Urate [Mass/Vol] 4.8 mg/dL Normal 2.5-6.2 [facility] Comment on above: Performed By: #### A 1C #### [facility] [address] [id number] Haley Hardy Vital Signs Date Time Vital Sign Value Performing Clinician Karoni lity 05-28-2023 09:17-0500 Body height 152.4 cm Ismael Nazario MD Work Phone: [facility] 05-28-2023 09:17-0500 Body mass index (BMI) [Ratio] 19.92 kg/m2 Ismael Nazario MD Work Phone: [facility] 05-28-2023 09:17-0500 Body temperature 97.5 [degF] Ismael Nazario MD Work Phone: [facility] 05-28-2023 09:17-0500 Body weight 46.27 kg Ismael Nazario MD Work Phone: [facility] 05-28-2023 09:17-0500 Diastolic blood pressure 60 mm[Hg] Ismael Nazario MD Work Phone: [facility] 05-28-2023 09:17-0500 Heart rate 99 /min Ismael Nazario MD Work Phone: [facility] 05-28-2023 09:17-0500 SaO2% (BldA) [Mass fraction] 98 % Ismael Nazario MD Work Phone: [facility] 05-28-2023 09:17-0500 Systolic blood pressure 120 mm[Hg] Ismael Nazario MD Work Phone: [facility] Healthcare Encounters Encounter Date Encounter Type Care [...] Start: 04-24-2023 End: 04-24-2023 ambulatory Tim Matias Facility:[facility] Start: 04-24-2023 End: 04-24-2023 ambulatory MD Tim Matias Work Phone: [facility] Work Phone: Start: 04-24-2023 End: 04-24-2023 Departed Referred MD Tim Matias Work Phone: [facility] Work Phone: Start: 03-28-2023 End: 03-28-2023 ambulatory [...] screening for protein Diabetes: Urine Protein Screening [facility] Start: 11-25-2023 End: 11-25-2023 Patient encounter procedure 11/25/2023 9:00 AM EDT Office Visit [facility] [address] [place] [phone] Ismael Nazario MD [address] [place] [phone] [facility] Start: 06-12-2023 End: 06-12-2023 Patient encounter procedure 06/12/2023 1:00 PM EST [facility] [address] [place] [address] Farrah Kaufman MD [address] [place], [place] [id number] [facility] Start: 05-28-2023 End: 05-28-2024 Hemoglobin A1c measurement Hemoglobin A1c Lab Routine Type 2 diabetes mellitus with hyperglycemia, without long-term current use of insulin ([facility]) Expected: 05/28/2023 (Approximate), Expires: 05/28/2024 [facility] Work Phone: Comment on above: Expected: 05/28/2023 (Approximate), Expires: 05/28/2024 Start: 05-28-2023 End: 05-28-2023 Patient encounter procedure 05/28/2023 9:15 AM EST Office Visit [facility] [address] [place] [phone] Ismael Nazario MD [address] [place] [phone] Arrived [facility] Comment on above: Arrived Start: 1953 Urine screening for protein Diabetes: Urine Protein Screening [facility] Start: 1944 Glaucoma screening Diabetes: R etinopathy Screening [facility] Start: 1934 Hemoglobin A1c measurement Diabetes: Hemoglobin A1C [facility] Start: 1934 Medicare Annual Wellness (AWV) Medicare Annual Wellness (AWV) [facility] Payers Date Payer Category Payer Self-pay 2023 Unknown [id number] 2022 Unknown [employer] [id number] 2022-Present [address] [id number] 1999 Medicare MEDICARE MEDICAR E PART B [id number] 1999-[place] [address] Medicare [id number] 1959 Medicare [id number] 1959 Unknown [id number] 1934 Unknown [id number] 3 1934 Unknown [id number] 3 1934 Unknown [id number] 3 1934 Unknown [id number] 3 1934 Unknown [id number] 59 1934 Unknown [id number] 59 1934 Unknown [id number] 59 1934 Unknown [id number] 59 Medicare Medicare Outpatient [id number] [id number] Unknown [id number] 1 Social History Date Type Detail Facility Tobacco smoking stat us MIIS Unknown if ever smoked [facility] Work Phone: Start: 1935 Sex Assigned At Female F [facility] Start: 10-11-2022 End: 05-28-2023 Tobacco smoking status MIIS Never smoked tobacco [facility] Start: 04-26-2023 End: 05-28-2023 Alcohol intake Lifetime non-drinker (finding) [facility] Start: 04-26-2023 End: 05-28-2023 History of Social function [facility] Start: 04-26-2023 End: 05-28-2023 Tobacco use panel [facility] Start: 1935 Sex Assigned At Not on file [facility] Start: 05-28-2023 Tobacco use and exposure Smokeless tobacco non-user [facility] History of Present illness Narrative 05-28-2023 Ismael Nazario MD - 05/28/2023 10:03 AM Rober Nazario MD - 05/28/2023 10:02 AM Rober Nazario MD - 05/28/2023 10:02 AM Rober Nazario MD - 05/28/2023 10:02 AM EST Note Date & Type Note Facility 05-28-2023 History of Presen t illness Narrative Associated Problem(s): Type 2 diabetes mellitus with hyperglycemia, without long-term current use of insulin ([facility]) Not checking BS and due for A1C. [...] Note Facility Evaluation note No assessment information [facility] Work Phone: Evaluation note Note Date & Type Note Facility Evaluation note Diagnosis Type 2 diabetes mellitus with hyperglycemia, without long-term current use of insulin ([facility])- Primary Essential hypertension, benign ([facility]) Essential hypertension, benign Lumbosacral spondylosis without myelopathy [...] and content) DATE CREATED AUTHOR 11/28/2021 [facility] DATE CREATED AUTHOR AUTHOR'S ORGANIZ ATION 06/11/2023 [facility] DATE CREATED AUTHOR AUTHOR'S ORGANIZ ATION 06/24/2023 [facility] Care Teams (unrecognized sec tion and content) Team Status: Inactive Member Role Status Dates Tim Matias MD Attending Provider Active [employer] Specialist Relationship Specialty Start Date End Date Ismael Nazario MD [address] [place] [phone] PCP - General Family Medicine 05/28/23 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 [employer] [facility]. provides no warranty or guarantee of the accuracy or completeness of information in this document.
== END 2023-08-14 08:37 | disposition home or self-care (01) ==
LOC: EC 08:37
PROVIDERS: PCP Family Medicine; Visit Provider Podiatrist Foot & Ankle Surgery
DX: M79.672 Pain in left foot (principal); M25.572 Pain in left ankle and joints of left foot
CPT/HCPCS: 73610; 73630

== ENCOUNTER 2023-08-16 13:44 | Outpatient (OUT) | payer MEDICARE, OTHER, SELFPAY ==
--- OUTSIDE RECORDS SUMMARY | 2023-08-16 13:51 | XMS_ITS | CCD ---
Author Organization [facility] Care Team Providers Care Linen Worker Name Role Phone MANSI, DR ISMAEL Avila [...] Attending Unavailable MD Tim Matias Attending Provider Ismael Nazario MD Primary Care Provider Tim Matias Attending Unavailable Polly, Tim Admitting Unavailable ISMAEL NAZARIO Attending Unavailable PETITTI, FARRAH Avila Attending Unavailable PETITTI, FARRAH Avila Attending Unavailable SASHA KOCH Attending Unavailable NADERER, ISMAEL Attending Unavailable Allergies Allergy Classification Reported Allergen(s) Allergy Type Date of Onset Reaction(s) Facility (1 source) Penicillins Drug allergy (disorder) 05-06-2020 [facility] (4 sources) Omeprazole Drug Allergy 10-11-2022 Unknown [facility] (4 sources) Penicillins Drug Allergy 09-11-2016 Itching [facility] Medications Current Medications Medication Drug [...] te Episodic/Chronic Other aftercare (1 source) 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; Translations: [OTH INTERMEDIATE CURRENT DRUG THERAPY] Onset: 12-01-2020 Episodic Results Test Name Value Interpretation Reference Range Facility [facility] HEMOGLOBIN A1Con 024 Glucose [Mass/Vol] 143 mg/dL [facility] HbA1c (Bld) [Mass fraction] 6.6 % High 4.5 - 6.2 % [facility] Comment on above: ADA RECOMMENDED LIMI T 4.0 - 6.0 ADA THERAPEUTIC TARGET < 7.0 ACTION SUGGESTED > 7.0 Interpretation and review of laboratory results Abnormal [facility] Ernesto 04-24-2023 L --- Specimen: [id number] Received: 04/24/23 Status: BREANNA Agudelofabi Num: [id number] Spec Type: Surgical Subm Dr: Tim Matias MD Tissues: A Skin-Other than Cyst, tag, debridement or plastic repair (LT WRIST) Procedures: HE/5, Gross/Micro L4, HMB45, SOX-10 Age/ Patient Sex Location Account Attending Physician Joanne Hatfield 87/F [place] [id number] Tim Matias MD SPEC NUM: [id number] RECD: 04/24/23 STATUS: BREANNA ORDAZ NUM: [id number] DACIA: 04/24/[address] [facility] DR: Tim Matias MD ENTERED: 04/24/23 [facility] DR: KATHY TYPE: Surgical DEPT: S ORDERED: [...] The specimen is inked and sectioned transversely. [employer] sections are submitted in 2 cassettes as follows: A1 - Central transverse sections A2 - Undesignated radial tips Specimen: [id number] Received: 04/24/23 Status: BREANNA Ordaz Num: [id number] Spec Type: Surgical Subm Dr: Tim Matias MD Tissues: A Skin-Other than Cyst, tag, debridement or plastic repair (LT WRIST) Procedures: HE/5, Gross/Micro L4, HMB45, SOX-10 Patient: Joanne Hatfield [id number] (Continued) Specimen: [id number] Received: 04/24/23 (Continued) Signed (signature on file) Nato Tobin MD 04/26/23 1258 Specimen: [id number] Received: 04/24/23 Status: BREANNA Ordaz Num: [id number] Spec Type: Surgical Subm Dr: Tim Matias MD Tissues: A Skin-Other than Cyst, tag, debridement or plastic repair (LT WRIST) Procedures: HE/5, Gross/Micro L4, HMB45, SOX-10 Patient: Joanne Hatfield [id number] (Continued) Specimen: Received: 04/24/23 (Continued) Microscopic Description Two H E slides reviewed. The microscopic examination confirms the diagnosis. CPT Codes 61513, 75367, 52530 Specimen: [id number] Received: 04/24/23-1410 Status: BREANNA Ordaz Num: [id number] Spec Type: Surgical Subm Dr: Tim Matias MD Tissues: A Skin-Other than Cyst, tag, debridement or plastic repair (LT WRIST) Procedures: HE/5, Gross/Micro L4, HMB45, SOX-10 Patient: Joanne Hatfield [id number] (Continued) Signed (signature on file) Nato Tobin MD 04/26/23 1258 Normal [facility] MICROALBUMIN URINEon 022 Albumin, Urine 8.0 ug/mL Normal Not Estab. [facility] Comment on above: Performed By: #### A 1C #### [facility] [address] [place] [address] Haley Hayley VIT D 25-OH LABCORPon 2021 Vitamin D, 25-Hydroxy 34.4 ng/mL Normal 30.0-100.0 [facility] Comment on above: Result Comment: Macy min D deficiency has been defined by the [place] of [employer] and an Endocrine Society practice guideline as a level of serum 25-OH vitamin D less than 20 ng/mL (1,2). The Endocrine Society went on to further define vitamin D insufficiency as a level between 21 and 29 ng/mL (2). 1. IOM ([place] of [employer]). 2010. Dietary reference intakes for calcium and D. [place]: The National Academies Press. 2. Oc MF, Rosendo BROWN, Kel MENDEZ, et al. Evaluation, treatment, and prevention of vitamin D deficiency: an Endocrine Society clinical practice guideline. JCEM. 2010; 96(7):1911-30. Performed By: #### A 1C #### [facility] [address] [place] [address] Haley Hardy CBC AUTO DIFFon 11-27-2021 BASO # 0.0 103/ul Normal 0.0-0.1 [facility] Comment on above: Performed By: #### C BC #### [facility] [address] [place] [address] Dr. Cassidy Garcia Basophils/100 WBC (Bld) 0.6 % Normal 0.2-2.0 [facility] Comment on above: Performed By: #### C BC #### [facility] [address] [place] [address] Dr. Cassidy Garcia EO # 0.2 103/ul Normal 0.0-0.7 [facility] Comment on above: Performed By: #### C BC #### [facility] [address] [place] [address] Dr. Cassidy Garcia Eosinophils/100 WBC (Bld) 3.2 % Normal 0.9-7.0 [facility] Comment on above: Performed By: #### C BC #### [facility] [address] [place] [address] Dr. Cassidy Garcia Erythrocyte distribution width (RBC) [Ratio] 13.2 % Normal 11.0-15.0 [facility] Comment on above: Performed By: #### C BC #### [facility] [address] [place] [address] Dr. Cassidy Garcia Hematocrit (Bld) [Volume fraction] 43.6 % Normal 36.0-48.0 [facility] Comment on above: Performed By: #### C BC #### [facility] [address] [place] [address] Dr. Cassidy Garcia Hemoglobin (Bld) [Mass/Vol] 13.9 g/dL Normal 12.0-16.0 [facility] Comment on above: Performed By: #### C BC #### [facility] [address] [place] [address] Dr. Cassidy Garcia IG # 0.02 10e3/ul Normal 0.00-0.03 [facility] Comment on above: Performed By: #### C BC #### [facility] [address] [place] [address] Dr. Cassidy Garcia IG % 0.3 % Normal 0.0-0.5 [facility] Comment on above: Performed By: #### C BC #### [facility] [address] [place] [address] Dr. Cassidy Garica LYMPH # 1.7 103/ul Normal 1.2-3.8 [facility] Comment on above: Performed By: #### C BC #### [facility] [address] [place] [address] Dr. Cassidy Garcia Lymphocytes/100 WBC (Bld) 25.2 % Normal 20.5-60.0 [facility] Comment on above: Performed By: #### C BC #### [facility] [address] [place] [address] Dr. Cassidy Garcia MANUAL DIFF REQ NO Normal [facility] Comment on above: Performed By: #### C BC #### [facility] [address] [place] [address] Dr. Cassidy Garcia MCH (RBC) [Entitic mass] 29.5 pg Normal 26.7-34.0 [facility] Comment on above: Performed By: #### C BC #### [facility] [address] [place] [address] Dr. Cassidy Garcia MCHC (RBC) [Mass/Vol] 31.9 g/dL Normal 29.9-35.2 [facility] Comment on above: Performed By: #### C BC #### [facility] [address] [place] [address] Dr. Cassidy Garcia MCV (RBC) [Entitic vol] 92.6 fL Normal 81.0-99.0 [facility] Comment on above: Performed By: #### C BC #### [facility] [address] [address] [address] Cassidy Garcia MONO # 0.6 103/ul Normal 0.3-0.8 [facility] Comment on above: Performed By: #### C BC #### [facility] [address] [place] [address] Dr. Cassidy Garcia Monocytes/100 WBC (Bld) 8.1 % Normal 1.7-12.0 [facility] Comment on above: Performed By: #### C BC #### [facility] [address] [place] [address] Dr. Cassidy Garcia NEUT # 4.3 103/ul Normal 1.4-6.5 [facility] Comment on above: Performed By: #### C BC #### [facility] [address] [place] [address] Dr. Cassidy Garcia Neutrophils/100 WBC (Bld) 62.6 % Normal 43.0-75.0 [facility] Comment on above: Performed By: #### C BC #### [facility] [address] [place] [address] Dr. Cassidy Garcia Platelet mean volume (Bld) [Entitic vol] 11.9 fL Normal 9.5-13.5 [facility] Comment on above: Performed By: #### C BC #### [facility] [address] [place] [address] Dr. Cassidy Garcia PLT 153 103/ul Normal 150-450 [facility] Comment on above: Performed By: #### C BC #### [facility] [address] [place] [address] Dr. Cassidy Garcia RBC 4.71 106/ul Normal 4.20-5.40 [facility] Comment on above: Performed By: #### C BC #### [facility] [address] [address] [address] Cassidy Garcia WBC 6.8 103/ul Normal 4.0-11.0 [facility] Comment on above: Performed By: #### C BC #### [facility] [address] [address] [address] Cassidy Garcia GLYCOHEMOGLOBIN A1Con 2021 ADA RECOMMENDATION SEE BELOW Normal [facility] Comment on above: Result Comment: ADA RECOMMENDED LIMIT 4.0 - 6.0 ADA THERAPEUTIC TARGET < 7.0 ACTION SUGGESTED > 7.0 Performed By: #### A 1C #### [facility] [address] [place] [address] Dr. Cassidy Garcia Glucose [Mass/Vol] 137 mg/dL Normal [facility] Comment on above: Performed By: #### A 1C #### [facility] [address] [place] [address] Dr. Cassidy Garcia HbA1c (Bld) [Mass fraction] 6.4 % Critically high 4.5-6.2 [facility] Comment on above: Performed By: #### A 1C #### [facility] [address] [place] [address] Dr. Cassidy Garcia LIPID PROFILEon 11-27-2021 CHOL-HDL RATIO NORM SEE BELOW Normal [facility] Comment on above: Result Comment: 3.3 - 4.4 LOW RISK 4.4 - 7.1 AVERAGE RISK 7.1 - 11.0 MODERATE RISK >11.0 HIGH RISK Performed By: #### A 1C #### [facility] [address] [place] [address] Haley Hayley Cholesterol [Mass/Vol] 157 mg/dL Normal <=200 [facility] Comment on above: Performed By: #### A 1C #### [facility] [address] [place] [address] Haley Hayley Cholesterol in HDL [Mass/Vol] 66 mg/dL Critically high 40-60 [facility] Comment on above: Performed By: #### A 1C #### [facility] [address] [place], [place] [address] Haley Hayley Cholesterol in LDL [Mass/Vol] 72.8 mg/dL Normal [facility] Comment on above: Performed By: #### A 1C #### [facility] [address] [place], [place] [address] Haley Hayley Cholesterol.total/C holesterol in HDL [Mass ratio] 2.4 {ratio} Normal [facility] Comment on above: Performed By: #### A 1C #### [facility] [address] [place], [place] [address] Haley Hayley HDL NORMAL > or = 60 mg/dl - LO W CARDIOVASCULAR RISK <40 mg/dl - HIGH CARDIOVASCULAR RISK Normal [facility] Comment on above: Performed By: #### A 1C #### [facility] [address] [place], [place] [address] Haley Hayley LDL CALC NORMAL SEE BELOW Normal [facility] Comment on above: Result Comment: <100 mg/dl OPTIMAL 100 - 129 mg/dl NEAR OR ABOVE OPTIMAL 130 - 159 mg/dl BORDERLINE HIGH 160 - 189 mg/dl HIGH >190 mg/dl VERY HIGH Performed By: #### A 1C #### [facility] [address] [place], [place] [address] Haley Hayley Triglyceride [Mass/Vol] 91 mg/dL Normal <=150 [facility] Comment on above: Performed By: #### A 1C #### [facility] [address] [place], [place] [address] Haley Hayley VLDL CALC 18.2 mg/dL Normal [facility] Comment on above: Performed By: #### A 1C #### [facility] [address] [place], [place] [address] Haley Hayley PROF CHEM 8 (BAS METB)on Anion gap [Moles/Vol] 15.3 mmol/L Normal [facility] Comment on above: Performed By: #### A 1C #### [facility] [address] [place], [place] [address] Haley Hayley Calcium [Mass/Vol] 9.8 mg/dL Normal 8.5-10.1 [facility] Comment on above: Performed By: #### A 1C #### [facility] [address] [id number] Haley Hayley Chloride [Moles/Vol] 101 mmol/L Normal 98-107 [facility] Comment on above: Performed By: #### A 1C #### [facility] [address] [place] [address] Haley Hayley CO2 [Moles/Vol] 27.3 mmol/L Normal 21.0-32.0 [facility] Comment on above: Performed By: #### A 1C #### [facility] [address] [place] [address] Haley Hayley Creatinine [Mass/Vol] 0.81 mg/dL Normal 0.55-1.02 [facility] Comment on above: Performed By: #### A 1C #### [facility] [address] [place], [place] [address] Haley Hayley EGFR-AF PALESTINIAN >60 Normal >=60 [facility] Comment on above: Result Comment: Prev iously reported as: (blank) On 11/27/2021 11:29 By DM9 Performed By: #### A 1C #### [facility] [address] [place] [address] Haley Hayley EGFR-NON AF PALESTINIAN >60 Normal >=60 [facility] Comment on above: Result Comment: Prev iously reported as: (blank) On 11/27/2021 11:29 By DM9 Performed By: #### A 1C #### [facility] [address] [place] [address] Haley Hayley Glucose [Mass/Vol] 110 mg/dL Critically high 74-106 [facility] Comment on above: Performed By: #### A 1C #### [facility] [address] [place], [place] [address] Haley Hayley Potassium [Moles/Vol] 3.6 mmol/L Normal 3.5-5.1 [facility] Comment on above: Performed By: #### A 1C #### [facility] [address] [place] [address] Haley Hayley Sodium [Moles/Vol] 140 mmol/L Normal 136-145 [facility] Comment on above: Performed By: #### A 1C #### [facility] [address] [place] [address] Haley Hardy Urea nitrogen [Mass/Vol] 20.0 mg/dL Critically high 7.0-18.0 [facility] Comment on above: Performed By: #### A 1C #### [facility] [address] [place] [address] Haley Hardy Urea nitrogen/Creatinine [Mass ratio] 24.7 mg/mg Normal [facility] Comment on above: Performed By: #### A 1C #### [facility] [address] [place] [address] Haley Hardy SGOTon 11-27-2021 AST [Catalytic activity/Vol] 21 U/L Normal 15-37 [facility] Comment on above: Performed By: #### A 1C #### [facility] [address] [place] [address] Haley Hardy SGPTon 11-27-2021 ALT [Catalytic activity/Vol] 20 U/L Normal 14-59 [facility] Comment on above: Performed By: #### A 1C #### [facility] [address] [place] [address] Haley Hardy GLYCOHEMOGLOBIN A1Con 2021 ADA RECOMMENDATION ADA THERAPEUTIC TARG ET 6.0 - 7.0 ACTION SUGGESTED > 7.0 [facility] Comment on above: Performed By: #### A 1C #### [facility] [address] [place] [address] Dr. Cassidy Garcia Glucose [Mass/Vol] 146 mg/dL Normal [facility] Comment on above: Performed By: #### A 1C #### [facility] [address] [place] [address] Dr. Cassidy Garcia HbA1c (Bld) [Mass fraction] 6.7 % Critically high <=6.0 [facility] Comment on above: Performed By: #### A 1C #### [facility] [address] [place] [address] Dr. Cassidy Garcia ALBUMINon 11-30-2020 Albumin [Mass/Vol] 4.0 g/dL Normal 3.5-5.0 [facility] Comment on above: Performed By: #### M CRR #### [facility] [address] [place], [place] [address] Haley Hayley CBC AUTO DIFFon 11-30-2020 BASO # 0.0 103/ul Normal 0.0-0.1 [facility] Comment on above: Performed By: #### C BC #### [facility] [address] [place] [address] Haley Hayley Basophils/100 WBC (Bld) 0.6 % Normal 0.2-2.0 [facility] Comment on above: Performed By: #### C BC #### [facility] [address] [place] [address] Haley Hayley EO # 0.2 103/ul Normal 0.0-0.7 [facility] Comment on above: Performed By: #### C BC #### [facility] [address] [place] [address] Haley Hayley Eosinophils/100 WBC (Bld) 2.6 % Normal 0.9-7.0 [facility] Comment on above: Performed By: #### C BC #### [facility] [address] [place], [place] [phone] Haley Hayley Erythrocyte distribution width (RBC) [Ratio] 12.9 % Normal 11.0-15.0 [facility] Comment on above: Performed By: #### C BC #### [facility] [address] [place] [address] Haley Hayley Hematocrit (Bld) [Volume fraction] 39.6 % Normal 36.0-48.0 [facility] Comment on above: Performed By: #### C BC #### [facility] [address] [place], [place] [address] Haley Hayley Hemoglobin (Bld) [Mass/Vol] 12.8 g/dL Normal 12.0-16.0 [facility] Comment on above: Performed By: #### C BC #### [facility] [address] [place] [address] Haley Hayley IG # 0.02 10e3/ul Normal 0.00-0.03 [facility] Comment on above: Performed By: #### C BC #### [facility] [address] [place] [address] Haley Hayley IG % 0.3 % Normal 0.0-0.5 [facility] Comment on above: Performed By: #### C BC #### [facility] [address] [place] [address] Haley Hayley LYMPH # 2.0 103/ul Normal 1.2-3.8 [facility] Comment on above: Performed By: #### C BC #### [facility] [address] [place] [address] Haley Hayley Lymphocytes/100 WBC (Bld) 27.1 % Normal 20.5-60.0 [facility] Comment on above: Performed By: #### C BC #### [facility] [address] [place] [address] Haley Hayley MANUAL DIFF REQ NO Normal [facility] Comment on above: Performed By: #### C BC #### [facility] [address] [place], [place] [phone] Haley Hayley MCH (RBC) [Entitic mass] 30.2 pg Normal 26.7-34.0 [facility] Comment on above: Performed By: #### C BC #### [facility] [address] [place] [address] Haley Hayley MCHC (RBC) [Mass/Vol] 32.3 g/dL Normal 29.9-35.2 [facility] Comment on above: Performed By: #### C BC #### [facility] [address] [place] [address] Haley Hayley MCV (RBC) [Entitic vol] 93.4 fL Normal 81.0-99.0 [facility] Comment on above: Performed By: #### C BC #### [facility] [address] [place] [address] Haley Hayley MONO # 0.6 103/ul Normal 0.3-0.8 [facility] Comment on above: Performed By: #### C BC #### [facility] [address] [place] [address] Haley Hardy Monocytes/100 WBC (Bld) 8.7 % Normal 1.7-12.0 [facility] Comment on above: Performed By: #### C BC #### [facility] [address] [place] [address] Haley Hardy NEUT # 4.4 103/ul Normal 1.4-6.5 [facility] Comment on above: Performed By: #### C BC #### [facility] [address] [place] [address] Haley Hardy Neutrophils/100 WBC (Bld) 60.7 % Normal 43.0-75.0 [facility] Comment on above: Performed By: #### C BC #### [facility] [address] [place] [address] Haley Hardy Platelet mean volume (Bld) [Entitic vol] 11.4 fL Normal 9.5-13.5 [facility] Comment on above: Performed By: #### C BC #### [facility] [address] [place] [address] Haley Hardy PLT 175 103/ul Normal 150-450 [facility] Comment on above: Performed By: #### C BC #### [facility] [address] [place] [address] Haley Hardy RBC 4.24 106/ul Normal 4.20-5.40 [facility] Comment on above: Performed By: #### C BC #### [facility] [address] [place] [address] Haley Hardy WBC 7.2 103/ul Normal 4.0-11.0 [facility] Comment on above: Performed By: #### C BC #### [facility] [address] [place] [address] Haley Hardy GLYCOHEMOGLOBIN A1Con 2020 ADA RECOMMENDATION ADA THERAPEUTIC TARG ET 6.0 - 7.0 ACTION SUGGESTED > 7.0 Normal [facility] Comment on above: Performed By: #### A 1C #### [facility] [address] [id number] Haley Hayley Glucose [Mass/Vol] 140 mg/dL Normal [facility] Comment on above: Performed By: #### A 1C #### [facility] [address] [place], [place] [address] Haley Hayley HbA1c (Bld) [Mass fraction] 6.5 % Critically high <=6.0 [facility] Comment on above: Performed By: #### A 1C #### [facility] [address] [id number] Haley Hayley LIPID PROFILEon 11-30-2020 CHOL-HDL RATIO NORM SEE BELOW Normal [facility] Comment on above: Result Comment: 3.3 - 4.4 LOW RISK 4.4 - 7.1 AVERAGE RISK 7.1 - 11.0 MODERATE RISK >11.0 HIGH RISK Performed By: #### A ST, ALT, LIPID #### [facility] [address] [id number] Haley Hayley Cholesterol [Mass/Vol] 130 mg/dL Normal <=200 [facility] Comment on above: Performed By: #### A ST, ALT, LIPID #### [facility] [address] [id number] Haley Hayley Cholesterol in HDL [Mass/Vol] 73 mg/dL Normal [facility] Comment on above: Performed By: #### A ST, ALT, LIPID #### [facility] [address] [id number] Haley Hayley Cholesterol in LDL [Mass/Vol] 40.0 mg/dL Normal [facility] Comment on above: Performed By: #### A ST, ALT, LIPID #### [facility] [address] [id number] Haley Hayley Cholesterol.total/C holesterol in HDL [Mass ratio] 1.8 {ratio} Normal [facility] Comment on above: Performed By: #### A ST, ALT, LIPID #### [facility] [address] [id number] Haley Hayley HDL NORMAL > or = 60 mg/dl - LO W CARDIOVASCULAR RISK <40 mg/dl - HIGH CARDIOVASCULAR RISK Normal [facility] Comment on above: Performed By: #### A ST, ALT, LIPID #### [facility] [address] [id number] Haley Ahyley LDL CALC NORMAL SEE BELOW Normal [facility] Comment on above: Result Comment: <100 mg/dl OPTIMAL 100 - 129 mg/dl NEAR OR ABOVE OPTIMAL 130 - 159 mg/dl BORDERLINE HIGH 160 - 189 mg/dl HIGH >190 mg/dl VERY HIGH Performed By: #### A ST, ALT, LIPID #### [facility] [address] [address] Haley Hayley Triglyceride [Mass/Vol] 85 mg/dL Normal <=150 [facility] Comment on above: Performed By: #### A ST, ALT, LIPID #### [facility] [address] [address] Haley Hayley VLDL CALC 17.0 mg/dL Normal [facility] Comment on above: Performed By: #### A ST, ALT, LIPID #### [facility] [address] [id number] Haley Hayley MAGNESIUMon 11-30-2020 Magnesium [Mass/Vol] 1.5 mg/dL Critically low 1.6-2.3 [facility] Comment on above: Performed By: #### A 1C #### [facility] [address] [address] Haleydonny Hardy MICROALB CREAT RATIO RANDOMo n 11-30-2020 mALB <1.3 Normal <=30.0 [facility] Comment on above: Performed By: #### M CRR #### [facility] [address] [id number] Haley Hayley MALB CR RATIO RANGE SEE BELOW Normal [facility] Comment on above: Result Comment: NO M ICROALBUMINURIA 0-29 MG/G CLINICAL MICROALBUMINURIA 30-300 MG/G MACROALBUMINURIA >300 MG/G Performed By: #### M CRR #### [facility] [address] [id number] Haley Hayley URINE CREAT 20.84 mg/dL Normal 20.00-300.00 [facility] Comment on above: Performed By: #### M CRR #### [facility] [address] [id number] Haley Hayley PHOSPHORUSon 11-30-2020 Phosphate [Mass/Vol] 3.1 mg/dL Normal 2.5-4.5 [facility] Comment on above: Performed By: #### A 1C #### [facility] [address] [place] [address] Haley Hayley PROF CHEM 8 (BAS METB)on Anion gap [Moles/Vol] 16.5 mmol/L Normal [facility] Comment on above: Performed By: #### A 1C #### [facility] [address] [place] [address] Haley Hayley Calcium [Mass/Vol] 10.0 mg/dL Normal 8.4-10.2 [facility] Comment on above: Performed By: #### A 1C #### [facility] [address] [place] [address] Haley Hayley Chloride [Moles/Vol] 102 mmol/L Normal 98-107 [facility] Comment on above: Performed By: #### A 1C #### [facility] [address] [place], [place] [id number] Haley Hayley CO2 [Moles/Vol] 26.8 mmol/L Normal 22.0-30.0 [facility] Comment on above: Performed By: #### A 1C #### [facility] [address] [place], [place] [id number] Haley Hayley Creatinine [Mass/Vol] 0.89 mg/dL Normal 0.52-1.04 [facility] Comment on above: Performed By: #### A 1C #### [facility] [address] [place], [place] [id number] Haley Hayley EGFR-AF PALESTINIAN >60 Normal >=60 [facility] Comment on above: Performed By: #### A 1C #### [facility] [address] [place], [place] [address] Haley Hayley EGFR-NON AF PALESTINIAN 60 mL/min/1.73m2 Normal >=60 [facility] Comment on above: Performed By: #### A 1C #### [facility] [address] [id number] Haley Hayley Glucose [Mass/Vol] 87 mg/dL Normal 74-106 [facility] Comment on above: Performed By: #### A 1C #### [facility] [address] [address] Haley Hayley Potassium [Moles/Vol] 3.3 mmol/L Critically low 3.4-5.0 [facility] Comment on above: Performed By: #### A 1C #### [facility] [address] [place] [address] Haley Hayley Sodium [Moles/Vol] 142 mmol/L Normal 137-145 [facility] Comment on above: Performed By: #### A 1C #### [facility] [address] [place] [address] Haley Hayley Urea nitrogen [Mass/Vol] 18.0 mg/dL Critically high 7.0-17.0 [facility] Comment on above: Performed By: #### A 1C #### [facility] [address] [place], [place] [phone] Haley Hayley Urea nitrogen/Creatinine [Mass ratio] 20.2 mg/mg Normal [facility] Comment on above: Performed By: #### A 1C #### [facility] [address] [place], [place] [phone] Haley Hayley SGOTon 11-30-2020 AST [Catalytic activity/Vol] 22 U/L Normal 14-36 [facility] Comment on above: Performed By: #### A ST, ALT, LIPID #### [facility] [address] [place], [place] [id number] Haley Hayley SGPTon 11-30-2020 ALT [Catalytic activity/Vol] 23 U/L Normal 9-52 [facility] Comment on above: Performed By: #### A ST, ALT, LIPID #### [facility] [address] [id number] Haley Hayley UA RANDOM W/MICROSCOPICon BACTERIA SMALL Abnormal NONE SEEN [facility] Comment on above: Performed By: #### U AMIC #### [facility] [address] [place] [address] Haley Hayley Bilirubin Ql (U) Negative Normal NEGATIVE [facility] Comment on above: Performed By: #### U AMIC #### [facility] [address] [place] [address] Haley Hayley CAST NONE SEEN Normal NONE SEEN [facility] Comment on above: Performed By: #### U AMIC #### [facility] [address] [place] [address] Haley Hayley Clarity (U) CLEAR Normal CLEAR [facility] Comment on above: Performed By: #### U AMIC #### [facility] [address] [place] [address] Haley Hayley Color (U) LT. YELLOW Normal YELLOW [facility] Comment on above: Performed By: #### U AMIC #### [facility] [address] [address] Haley Hayley Crystals LM Nom (Urine sed) NONE SEEN Normal NONE SEEN [facility] Comment on above: Performed By: #### U AMIC #### [facility] [address] [place] [address] Haley Hayley Epithelial cells LM Ql (Urine sed) FEW Abnormal NONE SEEN /RARE [facility] Comment on above: Performed By: #### U AMIC #### [facility] [address] [place] [address] Haley Hayley Glucose Ql (U) Negative Normal NEGATIVE [facility] Comment on above: Performed By: #### U AMIC #### [facility] [address] [place] [address] Haley Hayley Hemoglobin Ql (U) SMALL Abnormal NEGATIVE [facility] Comment on above: Performed By: #### U AMIC #### [facility] [address] [place] [address] Haley Hayley Ketones Ql (U) Negative Normal NEGATIVE [facility] Comment on above: Performed By: #### U AMIC #### [facility] [address] [id number] Haley Hayley LEUKOCYTES Negative Normal NEGATIVE [facility] Comment on above: Performed By: #### U AMIC #### [facility] [address] [id number] Haley Hayley MUCOUS NONE SEEN Normal NONE SEEN [facility] Comment on above: Performed By: #### U AMIC #### [facility] [address] [address] Haley Hayley Nitrite Ql (U) Negative Normal NEGATIVE [facility] Comment on above: Performed By: #### U AMIC #### [facility] [address] [place] [address] Haley Hayley pH (U) 5.5 [pH] Normal 5-9 [facility] Comment on above: Performed By: #### U AMIC #### [facility] [address] [place] [address] Haley Hayley RBC 0-2 Normal 0-2 [facility] Comment on above: Performed By: #### U AMIC #### [facility] [address] [place] [address] Haley Lunaen SPEC GRAVITY 1.010 Normal 1.005-<=1.025 [facility] Comment on above: Performed By: #### U AMIC #### [facility] [address] [place] [address] Haley Hayley UA PROTEIN Negative Normal NEGATIVE/ TRACE [facility] Comment on above: Performed By: #### U AMIC #### [facility] [address] [place] [address] Haley Hayley Urobilinogen Qn (U) 0.2 {Rivera'U}/dL Normal 0.2 - 1. 0 [facility] Comment on above: Performed By: #### U AMIC #### [facility] [address] [place] [address] Haley Hayley WBC 0-2 Abnormal NONE SEEN [facility] Comment on above: Performed By: #### U AMIC #### [facility] [address] [place], [place] [address] Haley Hardy URIC ACID SERUMon 11-30-2020 Urate [Mass/Vol] 4.8 mg/dL Normal 2.5-6.2 [facility] Comment on above: Performed By: #### A 1C #### [facility] [address] [place], [place] [address] Haley Hardy Vital Signs Date Time Vital Sign Value Performing Clinician Faci lity 05-28-2023 09:17-0500 Body height 152.4 cm Ismael Nazario MD Work Phone: [facility] 05-28-2023 09:17-0500 Body mass index (BMI) [Ratio] 19.92 kg/m2 Ismael Nazario MD Work Phone: [facility] 05-28-2023 09:17-0500 Body temperature 97.5 [degF] Ismael Nazario MD Work Phone: [facility] 05-28-2023 09:17-0500 Body weight 46.27 kg Ismael Nazario MD Work Phone: [facility] 05-28-2023 09:17-0500 Diastolic blood pressure 60 mm[Hg] Ismael Nazario MD Work Phone: [facility] 05-28-2023 09:17-0500 Heart rate 99 /min Ismael Nazario MD Work Phone: [facility] 05-28-2023 09:17-0500 SaO2% (BldA) [Mass fraction] 98 % Ismael Nazario MD Work Phone: [facility] 05-28-2023 09:17-0500 Systolic blood pressure 120 mm[Hg] Ismael Nazario MD Work Phone: [facility] Encounters Encounter Date Encounter Type Care Provider Facility Start: 08-13-2023 End: 08-13-2023 ambulatory ISMAEL NAZARIO Not Available Start: 06-24-2023 End: 06-24-2023 ambulatory SASHA KOCH Not Available Start: 06-12-2023 End: 06-12-2023 ambulatory FARRAH A PETITTI Not Available Start: 05-30-2023 Clinisync Result Encounter [...] Start: 04-24-2023 End: 04-24-2023 ambulatory Tim Matias Facility:[facility] Start: 04-24-2023 End: 04-24-2023 ambulatory MD Tim Matias Work Phone: [facility] Work Phone: Start: 04-24-2023 End: 04-24-2023 Departed Referred MD Tim Matias Work Phone: [facility] [place] Work Phone: Start: 03-28-2023 End: 03-28-2023 ambulatory FARRAH A PETITTI Not Available Start: 11-27-2021 End: 11-28-2021 ambulatory [...] screening for protein Diabetes: Urine Protein Screening [facility] Start: 11-25-2023 End: 11-25-2023 Patient encounter procedure 11/25/2023 9:00 AM EDT [facility] [address] [place] [phone] Ismael Nazario MD [address] [place] [phone] [facility] Start: 06-12-2023 End: 06-12-2023 Patient encounter procedure 06/12/2023 1:00 PM EST Office Visit [facility] [address] [place] [phone] Farrah Adame MD [address] [place] [address] [facility] Start: 05-28-2023 End: 05-28-2024 Hemoglobin A1c measurement Hemoglobin A1c Lab Routine Type 2 diabetes mellitus with hyperglycemia, without long-term current use of insulin ([facility]) Expected: 05/28/2023 (Approximate), Expires: 05/28/2024 [facility] Work Phone: Comment on above: Expected: 05/28/2023 (Approximate), Expires: 05/28/2024 Start: 05-28-2023 End: 05-28-2023 Patient encounter procedure 05/28/2023 9:15 AM EST Office Visit [facility] [address] [place] [phone] Ismael Nazario MD [address] [place] [phone] Arrived [facility] Comment on above: Arrived Start: 1953 Urine screening for protein Diabetes: Urine Protein Screening [facility] Start: 1944 Glaucoma screening Diabetes: R etinopathy Screening [facility] Start: 1934 Hemoglobin A1c measurement Diabetes: Hemoglobin A1C [facility] Start: 1934 Medicare Annual Wellness (AWV) Medicare Annual Wellness (AWV) [facility] Payers Date Payer Category Payer Self-pay 2023 Unknown [id number] 2022 Unknown [employer] [id number] 2022-Present [address] [employer] [place] [address] [id number] 1999 Medicare MEDICARE MEDICAR E PART B [id number] 1999-Present [address] [address] [place] [address] Medicare [id number] 1959 Medicare [id number] 1959 Unknown [id number] 1934 Unknown [id number] 3 1934 Unknown [id number] 3 1934 Unknown [id number] 3 1934 Unknown [id number] 3 1934 Unknown [id number] 59 1934 Unknown [id number] 59 1934 Unknown [id number] 59 1934 Unknown [id number] 59 1934 Unknown [id number] 59 Medicare Medicare Outpatient [id number] Unknown [id number] 1 Social History Date Type Detail Facility Tobacco smoking stat us WIIS Unknown if ever smoked [facility] Work Phone: Start: 1935 Sex Assigned At Female [facility] Start: 10-11-2022 End: 05-28-2023 Tobacco smoking status NHIS Never smoked tobacco [facility] Start: 04-26-2023 End: 05-28-2023 Alcohol intake Lifetime non-drinker (finding) [facility] Start: 04-26-2023 End: 05-28-2023 History of Social function [facility] Start: 04-26-2023 End: 05-28-2023 Tobacco use panel [facility] Start: 1935 Sex Assigned At Not on file [facility] Start: 05-28-2023 Tobacco use and exposure Smokeless tobacco non-user [facility] History of Present illness Narrative 05-28-2023 [...] without long-term current use of insulin (CMS/HCC) Not checking BS and due for A1C. [...] Note Facility Evaluation note No assessment information availa [facility] Work Phone: Evaluation note Note Date & Type Note Facility Evaluation note Diagnosis Type 2 diabetes mellitus with hyperglycemia, without long-term current use of insulin (CMS/HCC)- Primary Essential hypertension, benign (CMS/[facility]) Essential hypertension, benign Lumbosacral spondylosis without myelopathy [...] DATE CREATED AUTHOR AUTHOR'S ORGANIZ ATION 06/11/2023 [facility] DATE CREATED AUTHOR AUTHOR'S ORGANIZ ATION 08/15/2023 [facility] [employer] Care Teams (unrecognized sec tion and content) Team Status: Inactive Member Role Status Dates Tim Matias MD Attending Provider Active 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 [employer] [facility]. provides no warranty or guarantee of the accuracy or completeness of information in this document.
--- NOTE | 2023-08-16 14:02 | CT_ITS ---
The [address] [address] Patient Name: JOANNE WINSLOW MRN: [id number] date: 1935 Sex: F Assigned Patient Location: CT Current Patient Location: CT Accession/Order Number: [id number] Exam Date: 08/16/2023 13:50 Report Date: 08/16/2023 14:27 At the request of: JOSE GIBBONS Procedure: CT ankle LT wo con EXAMINATION: CT ankle LT wo con HISTORY: Left Ankle Sprain COMPARISON: 12/15/2023 TECHNIQUE: Multi-planar CT images were created without IV contrast. Dose reduction techniques were achieved by using automated exposure control and/or adjustment of mA and/or kV according to patient size and/or use of iterative reconstruction technique. FINDINGS: BONES: No definite acute fracture or dislocation. There is some noncorticated calcific density noted along the lateral and posterior calcaneus at the calcaneofibular ligament. Moderate enthesopathic spurring of the calcaneus at the Achilles and plantar insertions. Diffuse permeative pattern of the bones consistent with osteopenia. SOFT TISSUES: Moderate diffuse soft tissue swelling. Vascular calcifications. EFFUSION: None visible. OTHER: Negative. CT/CT ankle LT wo con IMPRESSION: Diffuse osteopenia with soft tissue swelling Heterotopic calcification along the posterior calcaneal fibular ligament likely resulting in the abnormality seen on plain film, I favor calcification of the ligament over avulsion fractures Electronically authenticated by: GIL VILLALPANDO Date: 08/16/2023 14:27
== END 2023-08-16 13:45 | disposition home or self-care (01) ==
LOC: CT 13:44
PROVIDERS: PCP Family Medicine; Visit Provider Podiatrist Foot & Ankle Surgery
DX: S93.402A Sprain of unspecified ligament of left ankle, initial encounter (principal); M85.80 Other specified disorders of bone density and structure, unspecified site
CPT/HCPCS: 73700

== ENCOUNTER 2023-11-25 09:59 | Outpatient (OUT) | payer MEDICARE, OTHER, SELFPAY ==
--- OUTSIDE RECORDS SUMMARY | 2023-11-25 10:20 | XMS_ITS | CCD ---
Author Organization [facility] Care Team Providers Care Satellite Dish Repairer Name Role Phone MANSI, DR ISMAEL Avila [...] Provider Ismael Nazario MD Primary Care Provider [phone] Tim Matias Attending Unavailable Tim Matias Admitting Unavailable MANSI, ISMAEL Attending Unavailable PETITTI, FARRAH Avila Attending Unavailable PETITTI, FARRAH Avila Attending Unavailable SASHA KOCH Attending Unavailable NADERECheyenne, ISMAEL Attending Unavailable PETITTI, FARRAH Avila Attending Unavailable Allergies Allergy Classification Reported Allergen(s) Allergy Type Date of Onset Reaction(s) Facility (1 source) Penicillins Drug allergy (disorder) 05-06-2020 [facility] Rep[facility] (4 sources) Omeprazole Drug Allergy 10-11-2022 Unknown [facility] (4 sources) Penicillins Drug Allergy 09-11-2016 Itching [facility] Medications Current Medications Medication Drug Class(es) [...] te Episodic/Chronic Other aftercare (1 source) Other senior living (current) drug therapy; Translations: [OTH INTERMEDIATE CURRENT DRUG THERAPY] Onset: 12-01-2020 Episodic Results Test Name Value Interpretation Reference Range Facility [facility] HEMOGLOBIN A1Con 024 Glucose [Mass/Vol] 143 mg/dL [facility] HbA1c (Bld) [Mass fraction] 6.6 % High 4.5 - 6.2 % [facility] Comment on above: ADA RECOMMENDED LIMI T 4.0 - 6.0 ADA THERAPEUTIC TARGET < 7.0 ACTION SUGGESTED > 7.0 Interpretation and review of laboratory results Abnormal [facility] Ernesto 04-24-2023 L --- Specimen: [id number] Received: 04/24/23 Status: BREANNA Ordaz Num: [id number] Spec Type: Surgical Subm Dr: Tim Matias MD Tissues: A Skin-Other than Cyst, tag, debridement or plastic repair (LT WRIST) Procedures: HE/5, Gross/Micro L4, HMB45, SOX-10 Age/ Patient Sex Location Account Attending Physician Joanne Hatfield 87/F [place] [id number] Tim Matias MD SPEC NUM: [id number] RECD: 04/24/23 STATUS: BREANNA SUMI NUM: [id number] DACIA: 04/24/23 [facility] DR: Tim Matias MD ENTERED: 04/24/23 [facility] DR: KATHY TYPE: Surgical DEPT: S ORDERED: [...] The specimen is inked and sectioned transversely. Court Advocate sections are submitted in 2 cassettes as follows: A1 - Central transverse sections A2 - Undesignated radial tips Specimen: [id number] Received: 04/24/23 Status: BREANNA Agudelofabi Num: [id number] Spec Type: Surgical Subm Dr: Tim Matias MD Tissues: A Skin-Other than Cyst, tag, debridement or plastic repair (LT WRIST) Procedures: NAMRATA/Richard, Gross/Micro L4, HMB45, SOX-10 Patient: AlysiaJoanne [id number] (Continued) Specimen: [id number] Received: 04/24/23 (Continued) Signed (signature on file) Nato Tobin MD 04/26/23 1258 Specimen: [id number] Received: 04/24/23 Status: BREANNA Oradz Num: [id number] Spec Type: Surgical Subm Dr: Tim Matias MD Tissues: A Skin-Other than Cyst, tag, debridement or plastic repair (LT WRIST) Procedures: HE/5, Gross/Micro L4, HMB45, SOX-10 Patient: Joanne Hatfield [id number] (Continued) Specimen: Received: 04/24/23 (Continued) Microscopic Description Two H E slides reviewed. The microscopic examination confirms the diagnosis. CPT Codes 15503, 63942, 39896 Specimen: [id number] Received: 04/24/23-141 Status: BREANNA Ordaz Num: [id number] Spec Type: Surgical Subm Dr: Tim Matias MD Tissues: A Skin-Other than Cyst, tag, debridement or plastic repair (LT WRIST) Procedures: HE/5, Gross/Micro L4, HMB45, SOX-10 Patient: Joanne Hatfield [id number] (Continued) Signed (signature on file) Nato Tobin MD 04/26/[address] [facility] MICROALBUMIN URINEon 022 Albumin, Urine 8.0 ug/mL Normal Not Estab. [facility] Comment on above: Performed By: #### A 1C #### [facility] [address] [place] [address] Haley Hardy VIT D 25-OH LABCORPon 2021 Vitamin D, 25-Hydroxy 34.4 ng/mL Normal 30.0-100.0 [facility] Comment on above: Result Comment: Macy min D deficiency has been defined by the Tony of Medicine and an Endocrine Society practice guideline as a level of serum 25-OH vitamin D less than 20 ng/mL (1,2). The Endocrine Society went on to further define vitamin D insufficiency as a level between 21 and 29 ng/mL (2). 1. IOM (Tony of Medicine). 2010. Dietary reference intakes for calcium and D. [place]: The National Academies Press. 2. Oc MF, Rosendo BROWN, Kel MENDEZ, et al. Evaluation, treatment, and prevention of vitamin D deficiency: an Endocrine Society clinical practice guideline. JCEM. 2010; 96(7):1911-30. Performed By: #### A 1C #### [facility] [address] [place] [address] Haley Hardy CBC AUTO DIFFon 11-27-2021 BASO # 0.0 103/ul Normal 0.0-0.1 [facility] Comment on above: Performed By: #### C BC #### [facility] [address] [place] [address] Dr. Cassidy Garcia Basophils/100 WBC (Bld) 0.6 % Normal 0.2-2.0 [facility] Comment on above: Performed By: #### C BC #### [facility] [address] [place] [address] Dr. Cassidy Garcia EO # 0.2 103/ul Normal 0.0-0.7 [facility] Comment on above: Performed By: #### C BC #### [facility] [address] [place] [address] Dr. Cassidy Garcia Eosinophils/100 WBC (Bld) 3.2 % Normal 0.9-7.0 [facility] Comment on above: Performed By: #### C BC #### [facility] [address] [place] [address] Dr. Cassidy Garcia Erythrocyte distribution width (RBC) [Ratio] 13.2 % Normal 11.0-15.0 [facility] Comment on above: Performed By: #### C BC #### [facility] [address] [place] [address] Dr. Cassidy Garcia Hematocrit (Bld) [Volume fraction] 43.6 % Normal 36.0-48.0 [facility] Comment on above: Performed By: #### C BC #### [facility] [address] [place] [address] Dr. Cassidy Garcia Hemoglobin (Bld) [Mass/Vol] 13.9 g/dL Normal 12.0-16.0 [facility] Comment on above: Performed By: #### C BC #### [facility] [address] [place] [address] Dr. Cassidy Garcia IG # 0.02 10e3/ul Normal 0.00-0.03 [facility] Comment on above: Performed By: #### C BC #### [facility] [address] [place] [address] Dr. Cassidy Garcia IG % 0.3 % Normal 0.0-0.5 [facility] Comment on above: Performed By: #### C BC #### [facility] [address] [place] [address] Dr. Cassidy Garcia LYMPH # 1.7 103/ul Normal 1.2-3.8 [facility] Comment on above: Performed By: #### C BC #### [facility] [address] [place] [address] Dr. Cassidy Garcia Lymphocytes/100 WBC (Bld) 25.2 % Normal 20.5-60.0 [facility] Comment on above: Performed By: #### C BC #### [facility] [address] [place] [address] Dr. Cassidy Garcia MANUAL DIFF REQ NO Normal [facility] Comment on above: Performed By: #### C BC #### [facility] [address] [place] [address] Dr. Cassidy Garcia MCH (RBC) [Entitic mass] 29.5 pg Normal 26.7-34.0 [facility] Comment on above: Performed By: #### C BC #### [facility] [address] [place] [address] Dr. Cassidy Garcia MCHC (RBC) [Mass/Vol] 31.9 g/dL Normal 29.9-35.2 [facility] Comment on above: Performed By: #### C BC #### [facility] [address] [place] [address] Dr. Cassidy Garcia MCV (RBC) [Entitic vol] 92.6 fL Normal 81.0-99.0 [facility] Comment on above: Performed By: #### C BC #### [facility] [address] [place] [address] Dr. Cassidy Garcia MONO # 0.6 103/ul Normal 0.3-0.8 [facility] Comment on above: Performed By: #### C BC #### [facility] [address] [place] [address] Dr. Cassidy Garcia Monocytes/100 WBC (Bld) 8.1 % Normal 1.7-12.0 [facility] Comment on above: Performed By: #### C BC #### [facility] [address] [place] [address] Dr. Cassidy Garcia NEUT # 4.3 103/ul Normal 1.4-6.5 [facility] Comment on above: Performed By: #### C BC #### [facility] [address] [place] [address] Dr. Cassidy Garcia Neutrophils/100 WBC (Bld) 62.6 % Normal 43.0-75.0 [facility] Comment on above: Performed By: #### C BC #### [facility] [address] [place] [address] Dr. Cassidy Garcia Platelet mean volume (Bld) [Entitic vol] 11.9 fL Normal 9.5-13.5 [facility] Comment on above: Performed By: #### C BC #### [facility] [address] [place] [address] Dr. Cassidy Garcia PLT 153 103/ul Normal 150-450 [facility] Comment on above: Performed By: #### C BC #### [facility] [address] [place] [address] Dr. Cassidy Garcia RBC 4.71 106/ul Normal 4.20-5.40 [facility] Comment on above: Performed By: #### C BC #### [facility] [address] [place] [address] Dr. Cassidy Garcia WBC 6.8 103/ul Normal 4.0-11.0 [facility] Comment on above: Performed By: #### C BC #### [facility] [address] [place] [address] Dr. Cassidy Garcia GLYCOHEMOGLOBIN A1Con 2021 ADA RECOMMENDATION SEE BELOW Normal [facility] Comment on above: Result Comment: ADA RECOMMENDED LIMIT 4.0 - 6.0 ADA THERAPEUTIC TARGET < 7.0 ACTION SUGGESTED > 7.0 Performed By: #### A 1C #### [facility] [address] [place] [address] Dr. Cassidy Garcia Glucose [Mass/Vol] 137 mg/dL Normal [facility] Comment on above: Performed By: #### A 1C #### [facility] [address] [place] [address] Dr. Cassidy Garcia HbA1c (Bld) [Mass fraction] 6.4 % Critically high 4.5-6.2 [facility] Comment on above: Performed By: #### A 1C #### [facility] [address] [place] [address] Dr. Cassidy Garcia LIPID PROFILEon 11-27-2021 CHOL-HDL RATIO NORM SEE BELOW Normal [facility] Comment on above: Result Comment: 3.3 - 4.4 LOW RISK 4.4 - 7.1 AVERAGE RISK 7.1 - 11.0 MODERATE RISK >11.0 HIGH RISK Performed By: #### A 1C #### [facility] [address] [place] [address] Haley Hayley Cholesterol [Mass/Vol] 157 mg/dL Normal <=200 [facility] Comment on above: Performed By: #### A 1C #### [facility] [address] [place] [address] Haley Hayley Cholesterol in HDL [Mass/Vol] 66 mg/dL Critically high 40-60 [facility] Comment on above: Performed By: #### A 1C #### [facility] [address] [place], [place] [address] Haley Hayley Cholesterol in LDL [Mass/Vol] 72.8 mg/dL Normal [facility] Comment on above: Performed By: #### A 1C #### [facility] [address] [place], [place] [address] Haley Hayley Cholesterol.total/C holesterol in HDL [Mass ratio] 2.4 {ratio} Normal [facility] Comment on above: Performed By: #### A 1C #### [facility] [address] [place], [place] [address] Haley Hayley HDL NORMAL > or = 60 mg/dl - LO W CARDIOVASCULAR RISK <40 mg/dl - HIGH CARDIOVASCULAR RISK Normal [facility] Comment on above: Performed By: #### A 1C #### [facility] [address] [place] [address] Haley Hayley LDL CALC NORMAL SEE BELOW Normal [facility] Comment on above: Result Comment: <100 mg/dl OPTIMAL 100 - 129 mg/dl NEAR OR ABOVE OPTIMAL 130 - 159 mg/dl BORDERLINE HIGH 160 - 189 mg/dl HIGH >190 mg/dl VERY HIGH Performed By: #### A 1C #### [facility] [address] [place], [place] [address] Haley Hayley Triglyceride [Mass/Vol] 91 mg/dL Normal <=150 [facility] Comment on above: Performed By: #### A 1C #### [facility] [address] [place], [place] [address] Haley Hayley VLDL CALC 18.2 mg/dL Normal [facility] Comment on above: Performed By: #### A 1C #### [facility] [address] [place], [place] [address] Haley Hayley PROF CHEM 8 (BAS METB)on Anion gap [Moles/Vol] 15.3 mmol/L Normal [facility] Comment on above: Performed By: #### A 1C #### [facility] [address] [place], [place] [address] Haley Hayley Calcium [Mass/Vol] 9.8 mg/dL Normal 8.5-10.1 [facility] Comment on above: Performed By: #### A 1C #### [facility] [address] [place] [id number] Haley Hayley Chloride [Moles/Vol] 101 mmol/L Normal 98-107 [facility] Comment on above: Performed By: #### A 1C #### [facility] [address] [place], [place] [address] Haley Hayley CO2 [Moles/Vol] 27.3 mmol/L Normal 21.0-32.0 [facility] Comment on above: Performed By: #### A 1C #### [facility] [address] [place] [address] Haley Hayley Creatinine [Mass/Vol] 0.81 mg/dL Normal 0.55-1.02 [facility] Comment on above: Performed By: #### A 1C #### [facility] [address] [place], [place] [address] Haley Hayley EGFR-AF SUDANESE >60 Normal >=60 [facility] Comment on above: Result Comment: Prev iously reported as: (blank) On 11/27/2021 11:29 By DM9 Performed By: #### A 1C #### [facility] [address] [place], [place] [address] Haley Hayley EGFR-NON AF SUDANESE >60 Normal >=60 [facility] Comment on above: Result Comment: Prev iously reported as: (blank) On 11/27/2021 11:29 By DM9 Performed By: #### A 1C #### [facility] [address] [place] [address] Haley Hayley Glucose [Mass/Vol] 110 mg/dL Critically high 74-106 [facility] Comment on above: Performed By: #### A 1C #### [facility] [address] [place], [place] [address] Haley Hayley Potassium [Moles/Vol] 3.6 mmol/L Normal 3.5-5.1 [facility] Comment on above: Performed By: #### A 1C #### [facility] [address] [place] [address] Haley Hardy Sodium [Moles/Vol] 140 mmol/L Normal 136-145 [facility] Comment on above: Performed By: #### A 1C #### [facility] [address] [place] [address] Haley Hardy Urea nitrogen [Mass/Vol] 20.0 mg/dL Critically high 7.0-18.0 [facility] Comment on above: Performed By: #### A 1C #### [facility] [address] [place] [address] Haley Hardy Urea nitrogen/Creatinine [Mass ratio] 24.7 mg/mg Normal [facility] Comment on above: Performed By: #### A 1C #### [facility] [address] [place] [address] Haley Hardy SGOTon 11-27-2021 AST [Catalytic activity/Vol] 21 U/L Normal 15-37 [facility] Comment on above: Performed By: #### A 1C #### [facility] [address] [place] [address] Haley Hardy SGPTon 11-27-2021 ALT [Catalytic activity/Vol] 20 U/L Normal 14-59 [facility] Comment on above: Performed By: #### A 1C #### [facility] [address] [place] [address] Haley Hadry GLYCOHEMOGLOBIN A1Con 2021 ADA RECOMMENDATION ADA THERAPEUTIC TARG ET 6.0 - 7.0 ACTION SUGGESTED > 7.0 Normal [facility] Comment on above: Performed By: #### A 1C #### [facility] [address] [place] [address] Dr. Cassidy Garcia Glucose [Mass/Vol] 146 mg/dL Normal [facility] Comment on above: Performed By: #### A 1C #### [facility] [address] [place] [address] Dr. Cassidy Garcia HbA1c (Bld) [Mass fraction] 6.7 % Critically high <=6.0 [facility] Comment on above: Performed By: #### A 1C #### [facility] [address] [place] [address] Dr. Cassidy Garcia ALBUMINon 11-30-2020 Albumin [Mass/Vol] 4.0 g/dL Normal 3.5-5.0 [facility] Comment on above: Performed By: #### M CRR #### [facility] [address] [place] [address] Haley Hayley CBC AUTO DIFFon 11-30-2020 BASO # 0.0 103/ul Normal 0.0-0.1 [facility] Comment on above: Performed By: #### C BC #### [facility] [address] [place] [address] Haley Hayley Basophils/100 WBC (Bld) 0.6 % Normal 0.2-2.0 [facility] Comment on above: Performed By: #### C BC #### [facility] [address] [place] [address] Haley Hayley EO # 0.2 103/ul Normal 0.0-0.7 [facility] Comment on above: Performed By: #### C BC #### [facility] [address] [place] [address] Haley Hayley Eosinophils/100 WBC (Bld) 2.6 % Normal 0.9-7.0 [facility] Comment on above: Performed By: #### C BC #### [facility] [address] [place] [address] Haley Hayley Erythrocyte distribution width (RBC) [Ratio] 12.9 % Normal 11.0-15.0 [facility] Comment on above: Performed By: #### C BC #### [facility] [address] [place] [address] Haley Hayley Hematocrit (Bld) [Volume fraction] 39.6 % Normal 36.0-48.0 [facility] Comment on above: Performed By: #### C BC #### [facility] [address] [place] [address] Haley Hayley Hemoglobin (Bld) [Mass/Vol] 12.8 g/dL Normal 12.0-16.0 [facility] Comment on above: Performed By: #### C BC #### [facility] [address] [place] [address] Haley Hayley IG # 0.02 10e3/ul Normal 0.00-0.03 [facility] Comment on above: Performed By: #### C BC #### [facility] [address] [place] [address] Haley Hayley IG % 0.3 % Normal 0.0-0.5 [facility] Comment on above: Performed By: #### C BC #### [facility] [address] [place] [address] Haley Hayley LYMPH # 2.0 103/ul Normal 1.2-3.8 [facility] Comment on above: Performed By: #### C BC #### [facility] [address] [place] [address] Haley Hayley Lymphocytes/100 WBC (Bld) 27.1 % Normal 20.5-60.0 [facility] Comment on above: Performed By: #### C BC #### [facility] [address] [place] [address] Haley Hayley MANUAL DIFF REQ NO Normal [facility] Comment on above: Performed By: #### C BC #### [facility] [address] [place] [address] Haley Hayley MCH (RBC) [Entitic mass] 30.2 pg Normal 26.7-34.0 [facility] Comment on above: Performed By: #### C BC #### [facility] [address] [place] [address] Haley Hayley MCHC (RBC) [Mass/Vol] 32.3 g/dL Normal 29.9-35.2 [facility] Comment on above: Performed By: #### C BC #### [facility] [address] [place] [address] Haley Hayley MCV (RBC) [Entitic vol] 93.4 fL Normal 81.0-99.0 [facility] Comment on above: Performed By: #### C BC #### [facility] [address] [place] [address] Haley Hayley MONO # 0.6 103/ul Normal 0.3-0.8 [facility] Comment on above: Performed By: #### C BC #### [facility] [address] [place], [place] [address] Haley Hardy Monocytes/100 WBC (Bld) 8.7 % Normal 1.7-12.0 [facility] Comment on above: Performed By: #### C BC #### [facility] [address] [place], [place] [address] Haley Hardy NEUT # 4.4 103/ul Normal 1.4-6.5 [facility] Comment on above: Performed By: #### C BC #### [facility] [address] [place] [address] Haley Hardy Neutrophils/100 WBC (Bld) 60.7 % Normal 43.0-75.0 [facility] Comment on above: Performed By: #### C BC #### [facility] [address] [place] [address] Haley Hardy Platelet mean volume (Bld) [Entitic vol] 11.4 fL Normal 9.5-13.5 [facility] Comment on above: Performed By: #### C BC #### [facility] [address] [place], [place] [address] Haley Hardy PLT 175 103/ul Normal 150-450 [facility] Comment on above: Performed By: #### C BC #### [facility] [address] [place], [place] [address] Haley Hardy RBC 4.24 106/ul Normal 4.20-5.40 [facility] Comment on above: Performed By: #### C BC #### [facility] [address] [place], [place] [address] Haleydonny Hardy WBC 7.2 103/ul Normal 4.0-11.0 [facility] Comment on above: Performed By: #### C BC #### [facility] [address] [place], [place] [address] Haley Hardy GLYCOHEMOGLOBIN A1Con 2020 ADA RECOMMENDATION ADA THERAPEUTIC TARG ET 6.0 - 7.0 ACTION SUGGESTED > 7.0 Normal [facility] Comment on above: Performed By: #### A 1C #### [facility] [address] [place] [address] Haley Hayley Glucose [Mass/Vol] 140 mg/dL Normal [facility] Comment on above: Performed By: #### A 1C #### [facility] [address] [place] [address] Haley Hayley HbA1c (Bld) [Mass fraction] 6.5 % Critically high <=6.0 [facility] Comment on above: Performed By: #### A 1C #### [facility] [address] [place] [address] Haley Hayley LIPID PROFILEon 11-30-2020 CHOL-HDL RATIO NORM SEE BELOW Normal [facility] Comment on above: Result Comment: 3.3 - 4.4 LOW RISK 4.4 - 7.1 AVERAGE RISK 7.1 - 11.0 MODERATE RISK >11.0 HIGH RISK Performed By: #### A ST, ALT, LIPID #### [facility] [address] [place] [address] Haley Hayley Cholesterol [Mass/Vol] 130 mg/dL Normal <=200 [facility] Comment on above: Performed By: #### A ST, ALT, LIPID #### [facility] [address] [place] [address] Haley Hayley Cholesterol in HDL [Mass/Vol] 73 mg/dL Normal [facility] Comment on above: Performed By: #### A ST, ALT, LIPID #### [facility] [address] [place] [address] Haley Hayley Cholesterol in LDL [Mass/Vol] 40.0 mg/dL Normal [facility] Comment on above: Performed By: #### A ST, ALT, LIPID #### [facility] [address] [place] [address] Haley Hayley Cholesterol.total/C holesterol in HDL [Mass ratio] 1.8 {ratio} Normal [facility] Comment on above: Performed By: #### A ST, ALT, LIPID #### [facility] [address] [place] [address] Haley Hyaley HDL NORMAL > or = 60 mg/dl - LO W CARDIOVASCULAR RISK <40 mg/dl - HIGH CARDIOVASCULAR RISK Normal [facility] Comment on above: Performed By: #### A ST, ALT, LIPID #### [facility] [address] [id number] Haleydonny aHrdy LDL CALC NORMAL SEE BELOW Normal [facility] Comment on above: Result Comment: <100 mg/dl OPTIMAL 100 - 129 mg/dl NEAR OR ABOVE OPTIMAL 130 - 159 mg/dl BORDERLINE HIGH 160 - 189 mg/dl HIGH >190 mg/dl VERY HIGH Performed By: #### A ST, ALT, LIPID #### [facility] [address] [address] Haleydonny Hardy Triglyceride [Mass/Vol] 85 mg/dL Normal <=150 [facility] Comment on above: Performed By: #### A ST, ALT, LIPID #### [facility] [address] [address] Haleydonny Hardy VLDL CALC 17.0 mg/dL Normal [facility] Comment on above: Performed By: #### A ST, ALT, LIPID #### [facility] [address] [id number] Haley Hardy MAGNESIUMon 11-30-2020 Magnesium [Mass/Vol] 1.5 mg/dL Critically low 1.6-2.3 [facility] Comment on above: Performed By: #### A 1C #### [facility] [address] [address] Haley Hardy MICROALB CREAT RATIO RANDOMo n 11-30-2020 mALB <1.3 Normal <=30.0 [facility] Comment on above: Performed By: #### M CRR #### [facility] [address] [id number] Haley Hardy MALB CR RATIO RANGE SEE BELOW Normal [facility] Comment on above: Result Comment: NO M ICROALBUMINURIA 0-29 MG/G CLINICAL MICROALBUMINURIA 30-300 MG/G MACROALBUMINURIA >300 MG/G Performed By: #### M CRR #### [facility] [address] [address] Haley Hayley URINE CREAT 20.84 mg/dL Normal 20.00-300.00 [facility] Comment on above: Performed By: #### M CRR #### [facility] [address] [place], [place] [id number] Haley Hayley PHOSPHORUSon 11-30-2020 Phosphate [Mass/Vol] 3.1 mg/dL Normal 2.5-4.5 [facility] Comment on above: Performed By: #### A 1C #### [facility] [address] [place], [place] [id number] Haley Hayley PROF CHEM 8 (BAS METB)on Anion gap [Moles/Vol] 16.5 mmol/L Normal [facility] Comment on above: Performed By: #### A 1C #### [facility] [address] [place], [place] [address] Haley Hayley Calcium [Mass/Vol] 10.0 mg/dL Normal 8.4-10.2 [facility] Comment on above: Performed By: #### A 1C #### [facility] [address] [place], [place] [address] Haley Hayley Chloride [Moles/Vol] 102 mmol/L Normal 98-107 [facility] Comment on above: Performed By: #### A 1C #### [facility] [address] [place], [place] [address] Haley Hayley CO2 [Moles/Vol] 26.8 mmol/L Normal 22.0-30.0 [facility] Comment on above: Performed By: #### A 1C #### [facility] [address] [place], [place] [address] Haley Hayley Creatinine [Mass/Vol] 0.89 mg/dL Normal 0.52-1.04 [facility] Comment on above: Performed By: #### A 1C #### [facility] [address] [place], [place] [address] Hlaey Hayley EGFR-AF SUDANESE >60 Normal >=60 [facility] Comment on above: Performed By: #### A 1C #### [facility] [address] [address] Haley Hayley EGFR-NON AF SUDANESE 60 mL/min/1.73m2 Normal >=60 [facility] Comment on above: Performed By: #### A 1C #### [facility] [address] [address] Haley Hayley Glucose [Mass/Vol] 87 mg/dL Normal 74-106 [facility] Comment on above: Performed By: #### A 1C #### [facility] [address] [id number] Haley Hayley Potassium [Moles/Vol] 3.3 mmol/L Critically low 3.4-5.0 [facility] Comment on above: Performed By: #### A 1C #### [facility] [address] [place] [address] Haley Hayley Sodium [Moles/Vol] 142 mmol/L Normal 137-145 [facility] Comment on above: Performed By: #### A 1C #### [facility] [address] [place], [place] [address] Haley Hayley Urea nitrogen [Mass/Vol] 18.0 mg/dL Critically high 7.0-17.0 [facility] Comment on above: Performed By: #### A 1C #### [facility] [address] [place], [place] [address] Haley Haylye Urea nitrogen/Creatinine [Mass ratio] 20.2 mg/mg Normal [facility] Comment on above: Performed By: #### A 1C #### [facility] [address] [place], [place] [address] Haley Hayley SGOTon 11-30-2020 AST [Catalytic activity/Vol] 22 U/L Normal 14-36 [facility] Comment on above: Performed By: #### A ST, ALT, LIPID #### [facility] [address] [place], [place] [address] Haley Hayley SGPTon 11-30-2020 ALT [Catalytic activity/Vol] 23 U/L Normal 9-52 [facility] Comment on above: Performed By: #### A ST, ALT, LIPID #### [facility] [address] [address] Haley Hayley UA RANDOM W/MICROSCOPICon BACTERIA SMALL Abnormal NONE SEEN [facility] Comment on above: Performed By: #### U AMIC #### [facility] [address] [place] [address] Haley Hayley Bilirubin Ql (U) Negative Normal NEGATIVE [facility] Comment on above: Performed By: #### U AMIC #### [facility] [address] [address] Haley Hayley CAST NONE SEEN Normal NONE SEEN [facility] Comment on above: Performed By: #### U AMIC #### [facility] [address] [place] [address] Haley Hayley Clarity (U) CLEAR Normal CLEAR [facility] Comment on above: Performed By: #### U AMIC #### [facility] [address] [place] [address] Haley Hayley Color (U) LT. YELLOW Normal YELLOW [facility] Comment on above: Performed By: #### U AMIC #### [facility] [address] [address] Haley Hayley Crystals LM Nom (Urine sed) NONE SEEN Normal NONE SEEN [facility] Comment on above: Performed By: #### U AMIC #### [facility] [address] [place], [place] [address] Haley Hayley Epithelial cells LM Ql (Urine sed) FEW Abnormal NONE SEEN /RARE [facility] Comment on above: Performed By: #### U AMIC #### [facility] [address] [place] [address] Haley Hayley Glucose Ql (U) Negative Normal NEGATIVE [facility] Comment on above: Performed By: #### U AMIC #### [facility] [address] [place] [address] Haley Hayley Hemoglobin Ql (U) SMALL Abnormal NEGATIVE [facility] Comment on above: Performed By: #### U AMIC #### [facility] [address] [place] [address] Haley Hayley Ketones Ql (U) Negative Normal NEGATIVE [facility] Comment on above: Performed By: #### U AMIC #### [facility] [address] [place], [place] [address] Haley Hayley LEUKOCYTES Negative Normal NEGATIVE [facility] Comment on above: Performed By: #### U AMIC #### [facility] [address] [place], [place] [address] Haley Hayley MUCOUS NONE SEEN Normal NONE SEEN [facility] Comment on above: Performed By: #### U AMIC #### [facility] [address] [place] [address] Haley Hayley Nitrite Ql (U) Negative Normal NEGATIVE [facility] Comment on above: Performed By: #### U AMIC #### [facility] [address] [place] [address] Haley Hayley pH (U) 5.5 [pH] Normal 5-9 [facility] Comment on above: Performed By: #### U AMIC #### [facility] [address] [place] [address] Haley Hayley RBC 0-2 Normal 0-2 [facility] Comment on above: Performed By: #### U AMIC #### [facility] [address] [place] [address] Haley Hayley SPEC GRAVITY 1.010 Normal 1.005-<=1.025 [facility] Comment on above: Performed By: #### U AMIC #### [facility] [address] [place] [address] Haley Hayley UA PROTEIN Negative Normal NEGATIVE/ TRACE [facility] Comment on above: Performed By: #### U AMIC #### [facility] [address] [place] [address] Haley Hayley Urobilinogen Qn (U) 0.2 {Rivera'U}/dL Normal 0.2 - 1. 0 [facility] Comment on above: Performed By: #### U AMIC #### [facility] [address] [place] [address] Haley Hayley WBC 0-2 Abnormal NONE SEEN [facility] Comment on above: Performed By: #### U AMIC #### [facility] [address] [place], [place] [address] Haley Hardy URIC ACID SERUMon 11-30-2020 Urate [Mass/Vol] 4.8 mg/dL Normal 2.5-6.2 [facility] Comment on above: Performed By: #### A 1C #### [facility] [address] [place], [place] [address] Haley Hardy Vital Signs Date Time Vital Sign Value Performing Clinician Faci lity 05-28-2023 09:17-0500 Body height 152.4 cm Ismael Nazario MD Work Phone: [facility] 05-28-2023 09:17-0500 Body mass index (BMI) [Ratio] 19.92 kg/m2 Ismael Nazario MD Work Phone: [facility] 05-28-2023 09:17-0500 Body temperature 97.5 [degF] Ismael Nazario MD Work Phone: [facility] 05-28-2023 09:17-0500 Body weight 46.27 kg Ismael Nazario MD Work Phone: [facility] 05-28-2023 09:17-0500 Diastolic blood pressure 60 mm[Hg] Ismael Nazario MD Work Phone: [facility] 05-28-2023 09:17-0500 Heart rate 99 /min Ismael Nazario MD Work Phone: [facility] 05-28-2023 09:17-0500 SaO2% (BldA) [Mass fraction] 98 % Ismael Nazario MD Work Phone: [facility] 05-28-2023 09:17-0500 Systolic blood pressure 120 mm[Hg] Ismael Nazario MD Work Phone: [facility] Encounters Encounter Date Encounter Type Care Provider Facility Start: 08-21-2023 End: 08-21-2023 ambulatory FARRAH KAUFMAN Not Available Start: 08-13-2023 End: 08-13-2023 ambulatory ISMAEL NAAZRIO Not Available Start: 06-24-2023 End: 06-24-2023 ambulatory [...] Start: 04-24-2023 End: 04-24-2023 ambulatory Tim Matias Facility:[facility] Start: 04-24-2023 End: 04-24-2023 ambulatory MD Tim Matias Work Phone: [facility] Work Phone: Start: 04-24-2023 End: 04-24-2023 Departed Referred MD Tim Matias Work Phone: [facility] [place] Work Phone: Start: 03-28-2023 End: 03-28-2023 ambulatory [...] Diabetes: Urine Protein Screening [facility] Start: 11-25-2023 End: 11-25-2023 Patient encounter procedure 11/25/2023 9:00 AM EDT Office Visit [facility] [address] [place] [phone] Ismael Nazario MD [address] [place] [phone] [facility] Start: 06-12-2023 End: 06-12-2023 Patient encounter procedure 06/12/2023 1:00 PM EST Office Visit [facility] [address] [place] [phone] Farrah Kaufman MD [address] [place] [address] [facility] Start: 05-28-2023 End: 05-28-2024 Hemoglobin A1c measurement Hemoglobin A1c Lab Routine Type 2 diabetes mellitus with hyperglycemia, without long-term current use of insulin ([facility]) Expected: 05/28/2023 (Approximate), Expires: 05/28/2024 [facility] Work Phone: Comment on above: Expected: 05/28/2023 (Approximate), Expires: 05/28/2024 Start: 05-28-2023 End: 05-28-2023 Patient encounter procedure 05/28/2023 9:15 AM EST Office Visit [facility] [address] [place] [phone] Ismael Nazario MD [address] [place] [address] Arrived [facility] Comment on above: Arrived Start: 1953 Urine screening for protein Diabetes: Urine Protein Screening [facility] Start: 1944 Glaucoma screening Diabetes: R etinopathy Screening [facility] Start: 1934 Hemoglobin A1c measurement Diabetes: Hemoglobin A1C [facility] Start: 1934 Medicare Annual Wellness (AWV) Medicare Annual Wellness (AWV) [facility] Payers Date Payer Category Payer Self-pay 2023 Unknown [id number] 2022 Unknown [employer] [id number] 2022-Present [id number] [employer] [place] [id number] 1999 Medicare MEDICARE MEDICAR E PART B [id number] 1999-Present [address] [address] [place] [address] Medicare [id number] 1959 Medicare [id number] 1959 Unknown [id number] 1934 Unknown [id number] 3 1934 Unknown [id number] 3 1934 Unknown [id number] [id number] 3 1934 Unknown [id number] 3 1934 Unknown [id number] [id number] 59 1934 Unknown [id number] [id number] 59 1934 Unknown [id number] [id number] 59 1934 Unknown [id number] [id number] 59 1934 Unknown [id number] [id number] 59 1934 Unknown [id number] [id number] 59 Medicare Medicare Outpatient [id number] Unknown [id number] 1 Social History Date Type Detail Facility Tobacco smoking stat us [facility] Unknown if ever smoked [facility] Work Phone: Start: 1935 Sex Assigned At Female F [facility] Start: 10-11-2022 End: 05-28-2023 Tobacco smoking status CAIS Never smoked tobacco [facility] Start: 04-26-2023 End: 05-28-2023 Alcohol intake Lifetime non-drinker (finding) [facility] Start: 04-26-2023 End: 05-28-2023 History of Social function [facility] Start: 04-26-2023 End: 05-28-2023 Tobacco use panel [facility] Start: 1935 Sex Assigned At Not on file [facility] Start: 05-28-2023 Tobacco use and exposure Smokeless tobacco non-user [facility] History of Present illness Narrative 05-28-2023 [...] use of insulin ([facility]) Not checking BS and due for A1C. Stick to ADA diet and limit carbs. Associated Problem(s): Oral phase dysphagia Occasional problems swallowing and evidence of postnasal drip. Resume flonase. If persists will order speech therapy swallow evaluation. Associated Problem(s): Lumbosacral spondylosis without myelopathy Pain stable and use OTC PRN. Associated Problem(s): Essential hypertension, benign ([facility]) BP controlled and monitor PRN. Associated Problem(s): [...] hyperglycemia, without long-term current use of insulin ([facility]) - Primary Not checking BS and due for A1C. Stick to ADA diet and limit carbs. Relevant Orders Hemoglobin A1c Oral phase dysphagia Occasional problems swallowing and evidence of postnasal drip. Resume flonase. If persists will order speech therapy swallow evaluation. documented in this encounter [facility] Evaluation note Note Date & Type Note Facility Evaluation note No assessment information availa [facility] Work Phone: Evaluation note Note Date & Type Note Facility Evaluation note Diagnosis Type 2 diabetes mellitus with hyperglycemia, without long-term current use of insulin ([facility])- Primary Essential hypertension, benign ([facility]) Essential hypertension, benign Lumbosacral spondylosis without myelopathy [...] and content) DATE CREATED AUTHOR 11/28/2021 [facility] DATE CREATED AUTHOR AUTHOR'S ORGANIZ ATION 06/11/2023 [facility] DATE CREATED AUTHOR AUTHOR'S ORGANIZ ATION 08/23/2023 [facility] EPIC Care Teams (unrecognized sec tion and content) Team Status: Inactive Member Role Status Dates Tim Matias MD Attending Provider Active [employer] Relationship Specialty Start Date End Date Ismael Nazario MD [address] [place] [phone] PCP - General Family Medicine 05/28/23 [employer]ellite [employer]r Relationship Specialty Start Date End Date Ismael Nazario MD [address] [place] [phone] PCP - General Family Medicine 05/28/23 Satellite D[employer]r Relationship Specialty Start Date End Date Ismael Nazario MD [address] [place] [address] PCP - General Family Medicine 05/28/23 Goals [...] BE BASED ON THE PRIMARY CLINICAL RECORDS. [employer] provides no warranty or guarantee of the accuracy or completeness of information in this document.
[2023-11-25 10:22] LABS: Basophils Percent Auto 0.5 % (0.2-2.0); Eosinophils Absolute Auto 0.2 10^3/uL (0.0-0.7); Hematocrit 45.2 % (36.0-48.0); Hemoglobin 14.7 g/dL (12.0-16.0); Immature Granulocytes Abs Auto 0.02 10^3/uL (0.00-0.03); Immature Granulocytes Pct Auto 0.2 % (0.0-0.5); Lymphocytes Absolute Auto 2.2 10^3/uL (1.2-3.8); Lymphocytes Percent Auto 24.8 % (20.5-60.0); Mean Corpuscular HGB Conc 32.5 g/dL (29.9-35.2); Mean Corpuscular Hemoglobin 30.3 pg (26.7-34.0); Mean Corpuscular Volume 93.2 fL (81.0-99.0); Mean Platelet Volume 10.2 fL (9.5-13.5); Monocytes Absolute Auto 0.6 10^3/uL (0.3-0.8); Monocytes Percent Auto 7.1 % (1.7-12.0); Neutrophils Absolute Auto 5.7 10^3/uL (1.4-6.5); Neutrophils Percent Auto 65.4 % (43.0-75.0); Platelet Count 220 10^3/uL (150-450); Red Blood Count 4.85 10^6/uL (4.20-5.40); White Blood Count 8.7 10^3/uL (4.0-11.0)
[2023-11-25 11:16] LABS: Alanine Aminotransferase 23 U/L (14-59); Albumin Globulin Ratio 1.2; Albumin Level 4.5 g/dL (3.4-5.0); Alkaline Phosphatase 109 U/L (46-116); Aspartate Amino Transferase 19 U/L (15-37); BUN Creatinine Ratio 21.8; Bilirubin Direct 0.2 mg/dL (0.0-0.2); Bilirubin Total 0.8 mg/dL (0.2-1.0); Calcium 10.1 mg/dL (8.5-10.1); Carbon Dioxide 31.3 mmol/L (21.0-32.0); Chloride 100 mmol/L (98-107); Cholesterol 161 mg/dL (<=200); Estimated GFR (African America >60 (>=60); Estimated GFR (Non-African Ame >60 (>=60); Globulin 3.6 g/dL; Glucose 122 mg/dL (74-106); HDL Cholesterol 79 mg/dL (40-60); Potassium 3.3 mmol/L (3.5-5.1); Sodium 139 mmol/L (136-145); Total Protein 8.1 g/dL (6.4-8.2); Triglycerides 110 mg/dL (<=150)
[2023-11-25 11:49] LABS: Estimated Average Glucose 131 mg/dL; Glycohemoglobin A1C 6.2 % (4.5-6.2)
[2023-11-26 16:17] LABS: Microalbumin Urine Random <1.3 mg/dL (<=30.0)
== END 2023-11-25 10:00 | disposition home or self-care (01) ==
LOC: LAB 10:00
PROVIDERS: PCP Family Medicine; Visit Provider Family Medicine
DX: E78.5 Hyperlipidemia, unspecified (principal); E11.65 Type 2 diabetes mellitus with hyperglycemia; N18.31 Chronic kidney disease, stage 3a; Z79.899 Other long term (current) drug therapy
CPT/HCPCS: 36415; 80048; 80061; 80076; 82043; 83036; 85025

== ENCOUNTER 2024-02-01 05:38 | Emergency (ER) | payer MEDICARE, OTHER, SELFPAY ==
[2024-02-01 05:41] VITALS: BP 172/83; PULSE 101; TEMP 36.8; O2SAT 98
--- OUTSIDE RECORDS SUMMARY | 2024-02-01 05:44 | XMS_ITS | CCD ---
Author Organization [facility] Care Team Providers Care Carcass Splitter Name Role Phone MANSI, DR ISMAEL Avila [...] Attending Unavailable MD Tim Matias Attending Provider [phone] Ismael Nazario MD Primary Care Provider Tim Matias Attending Unavailable Polly, Tim Admitting Unavailable MANSI, ISMAEL Attending Unavailable PETITTI, FARRAH Avila Attending Unavailable SASHA KOCH Attending Unavailable NADERER, ISMAEL Attending Unavailable PETITTI, FARRAH Avila Attending Unavailable NADERER, ISMAEL Attending Unavailable PETITTI, FARRAH Avila Attending Unavailable Allergies Allergy Classification Reported Allergen(s) Allergy Type Date of Onset Reaction(s) Facility (1 source) Penicillins Drug allergy (disorder) 05-06-2020 [facility] Repository (4 sources) Omeprazole Drug Allergy 10-11-2022 Unknown [facility] Healthcare (4 sources) Penicillins Drug Allergy 09-11-2016 Itching [facility] Medications Current Medications Medication Drug Class(es) Dates Sig (Normalized) Sig (Original) allopurinol 100 mg oral tablet (4 sources) Xanthine Oxidase Inhibitor take 1 tablet by mouth in the morning allopurinol (Zyloprim) 100 MG tablet Take 100 mg by mouth in the morning. 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] Onset: 12-01-2020 Episodic Results Test Name Value Interpretation Reference Range Facility [facility] HEMOGLOBIN A1Con 024 Glucose [Mass/Vol] 143 mg/dL [facility] HbA1c (Bld) [Mass fraction] 6.6 % High 4.5 - 6.2 % [facility] Comment on above: ADA RECOMMENDED LIMI T 4.0 - 6.0 ADA THERAPEUTIC TARGET < 7.0 ACTION SUGGESTED > 7.0 Interpretation and review of laboratory results Abnormal [facility] Ernesto 04-24-2023 L --- Specimen: [id number] Received: 04/24/23 Status: BREANNA Ordaz Num: [id number] Spec Type: Surgical Subm Dr: Tim Matias MD Tissues: A Skin-Other than Cyst, tag, debridement or plastic repair (LT WRIST) Procedures: HE/5, Gross/Micro L4, HMB45, SOX-10 Age/ Patient Sex Location Account Attending Physician Joanne Hatfield 87/F [place] [id number] Tim Matias MD SPEC NUM: [id number] RECD: 04/24/23 STATUS: BREANNA ORDAZ NUM: [id number] DACIA: 04/24/23 [facility] DR: Tim Matias MD ENTERED: 04/24/23 [facility] DR: KATHY TYPE: Surgical DEPT: S ORDERED: [...] The specimen is inked and sectioned transversely. Line Repairer Tower sections are submitted in 2 cassettes as follows: A1 - Central transverse sections A2 - Undesignated radial tips Specimen: [id number] Received: 04/24/23 Status: BREANNA Agudelofabi Num: [id number] Spec Type: Surgical Subm Dr: Tim Matias MD Tissues: A Skin-Other than Cyst, tag, debridement or plastic repair (LT WRIST) Procedures: HE/5, Gross/Micro L4, HMB45, SOX-10 Patient: Joanne Hatfield [id number] (Continued) Specimen: [id number] Received: 04/24/23 (Continued) Signed (signature on file) Nato Tobin MD 04/26/23 1258 Specimen: [id number] Received: 04/24/23 Status: BREANNA Ordaz Num: [id number] Spec Type: Surgical Subm Dr: Tim Matias MD Tissues: A Skin-Other than Cyst, tag, debridement or plastic repair (LT WRIST) Procedures: HE/5, Gross/Micro L4, HMB45, SOX-10 Patient: Joanne Hatfield [id number] (Continued) Specimen: Received: 04/24/23 (Continued) Microscopic Description Two H E slides reviewed. The microscopic examination confirms the diagnosis. CPT Codes 15492, 26533, 94172 Specimen: [id number] Received: 04/24/23-1410 Status: BREANNA Ordaz Num: [id number] Spec Type: Surgical Subm Dr: Tim Matias MD Tissues: A Skin-Other than Cyst, tag, debridement or plastic repair (LT WRIST) Procedures: HE/5, Gross/Micro L4, HMB45, SOX-10 Patient: Joanne Hatfield [id number] (Continued) Signed (signature on file) Nato Tobin MD 04/26/[address] [facility] MICROALBUMIN URINEon 022 Albumin, Urine 8.0 ug/mL Normal Not Estab. [facility] Comment on above: Performed By: #### A 1C #### [facility] [address] [place] [address] Haley Hardy VIT D 25-OH LABCORPon 2021 Vitamin D, 25-Hydroxy 34.4 ng/mL Normal 30.0-100.0 [facility] Comment on above: Result Comment: Macy min D deficiency has been defined by the [place] of [employer] and an Endocrine Society practice guideline as a level of serum 25-OH vitamin D less than 20 ng/mL (1,2). The Endocrine Society went on to further define vitamin D insufficiency as a level between 21 and 29 ng/mL (2). 1. IOM ([place] of Medicine). 2010. Dietary reference intakes for calcium and D. [place]: The National Academies Press. 2. Oc MF, Rosendo BROWN, Kel MENDEZ, et al. Evaluation, treatment, and prevention of vitamin D deficiency: an Endocrine Society clinical practice guideline. JCEM. 2010; 96(7):1911-30. Performed By: #### A 1C #### [facility] [address] [place] [address] Haley Hardy CBC AUTO DIFFon 11-27-2021 BASO # 0.0 103/ul Normal 0.0-0.1 [facility] Comment on above: Performed By: #### C BC #### [facility] [address] [place] [address] Dr. Cassidy Garcia Basophils/100 WBC (Bld) 0.6 % Normal 0.2-2.0 [facility] Comment on above: Performed By: #### C BC #### [facility] [address] [place] [address] Dr. Cassidy Garcia EO # 0.2 103/ul Normal 0.0-0.7 [facility] Comment on above: Performed By: #### C BC #### [facility] [address] [place] [address] Dr. Cassidy Garcia Eosinophils/100 WBC (Bld) 3.2 % Normal 0.9-7.0 [facility] Comment on above: Performed By: #### C BC #### [facility] [address] [place] [address] Dr. Cassidy Garcia Erythrocyte distribution width (RBC) [Ratio] 13.2 % Normal 11.0-15.0 [facility] Comment on above: Performed By: #### C BC #### [facility] [address] [place] [address] Dr. Cassidy Garcia Hematocrit (Bld) [Volume fraction] 43.6 % Normal 36.0-48.0 [facility] Comment on above: Performed By: #### C BC #### [facility] [address] [place] [address] Dr. Cassidy Garcia Hemoglobin (Bld) [Mass/Vol] 13.9 g/dL Normal 12.0-16.0 [facility] Comment on above: Performed By: #### C BC #### [facility] [address] [place] [address] Dr. Cassidy Garcia IG # 0.02 10e3/ul Normal 0.00-0.03 [facility] Comment on above: Performed By: #### C BC #### [facility] [address] [place] [address] Dr. Cassidy Garcia IG % 0.3 % Normal 0.0-0.5 [facility] Comment on above: Performed By: #### C BC #### [facility] [address] [place] [address] Dr. Cassidy Garcia LYMPH # 1.7 103/ul Normal 1.2-3.8 [facility] Comment on above: Performed By: #### C BC #### [facility] [address] [place] [address] Dr. Cassidy Garcia Lymphocytes/100 WBC (Bld) 25.2 % Normal 20.5-60.0 [facility] Comment on above: Performed By: #### C BC #### [facility] [address] [place] [address] Dr. Cassidy Garcia MANUAL DIFF REQ NO Normal [facility] Comment on above: Performed By: #### C BC #### [facility] [address] [place] [address] Dr. Cassidy Garcia MCH (RBC) [Entitic mass] 29.5 pg Normal 26.7-34.0 [facility] Comment on above: Performed By: #### C BC #### [facility] [address] [place] [address] Dr. Cassidy Garcia MCHC (RBC) [Mass/Vol] 31.9 g/dL Normal 29.9-35.2 [facility] Comment on above: Performed By: #### C BC #### [facility] [address] [place] [address] Dr. Cassidy Garcia MCV (RBC) [Entitic vol] 92.6 fL Normal 81.0-99.0 [facility] Comment on above: Performed By: #### C BC #### [facility] [address] [place] [address] Dr. Cassidy Garcia MONO # 0.6 103/ul Normal 0.3-0.8 [facility] Comment on above: Performed By: #### C BC #### [facility] [address] [place] [address] Dr. Cassidy Garcia Monocytes/100 WBC (Bld) 8.1 % Normal 1.7-12.0 [facility] Comment on above: Performed By: #### C BC #### [facility] [address] [place] [address] Dr. Cassidy Garcia NEUT # 4.3 103/ul Normal 1.4-6.5 [facility] Comment on above: Performed By: #### C BC #### [facility] [address] [place] [address] Dr. Cassidy Garcia Neutrophils/100 WBC (Bld) 62.6 % Normal 43.0-75.0 [facility] Comment on above: Performed By: #### C BC #### [facility] [address] [place] [address] Dr. Cassidy Garcia Platelet mean volume (Bld) [Entitic vol] 11.9 fL Normal 9.5-13.5 [facility] Comment on above: Performed By: #### C BC #### [facility] [address] [place] [address] Dr. Cassidy Garcia PLT 153 103/ul Normal 150-450 [facility] Comment on above: Performed By: #### C BC #### [facility] [address] [place] [address] Dr. Cassidy Garcia RBC 4.71 106/ul Normal 4.20-5.40 [facility] Comment on above: Performed By: #### C BC #### [facility] [address] [place] [address] Dr. Cassidy Garcia WBC 6.8 103/ul Normal 4.0-11.0 [facility] Comment on above: Performed By: #### C BC #### [facility] [address] [place] [address] Dr. Cassidy Garcia GLYCOHEMOGLOBIN A1Con 2021 ADA RECOMMENDATION SEE BELOW Normal [facility] Comment on above: Result Comment: ADA RECOMMENDED LIMIT 4.0 - 6.0 ADA THERAPEUTIC TARGET < 7.0 ACTION SUGGESTED > 7.0 Performed By: #### A 1C #### [facility] [address] [place] [address] Dr. Cassidy Garcia Glucose [Mass/Vol] 137 mg/dL Normal [facility] Comment on above: Performed By: #### A 1C #### [facility] [address] [place] [address] Dr. Cassidy Garcia HbA1c (Bld) [Mass fraction] 6.4 % Critically high 4.5-6.2 [facility] Comment on above: Performed By: #### A 1C #### [facility] [address] [place] [address] Dr. Cassidy Garcia LIPID PROFILEon 11-27-2021 CHOL-HDL RATIO NORM SEE BELOW Normal [facility] Comment on above: Result Comment: 3.3 - 4.4 LOW RISK 4.4 - 7.1 AVERAGE RISK 7.1 - 11.0 MODERATE RISK >11.0 HIGH RISK Performed By: #### A 1C #### [facility] [address] [address] Haley Hayley Cholesterol [Mass/Vol] 157 mg/dL Normal <=200 [facility] Comment on above: Performed By: #### A 1C #### [facility] [address] [place] [address] Haley Hayley Cholesterol in HDL [Mass/Vol] 66 mg/dL Critically high 40-60 [facility] Comment on above: Performed By: #### A 1C #### [facility] [address] [place], [place] [address] Haley Hayley Cholesterol in LDL [Mass/Vol] 72.8 mg/dL Normal [facility] Comment on above: Performed By: #### A 1C #### [facility] [address] [place], [place] [address] Haley Hayley Cholesterol.total/C holesterol in HDL [Mass ratio] 2.4 {ratio} Normal [facility] Comment on above: Performed By: #### A 1C #### [facility] [address] [place], [place] [address] Haley Hayley HDL NORMAL > or = 60 mg/dl - LO W CARDIOVASCULAR RISK <40 mg/dl - HIGH CARDIOVASCULAR RISK Normal [facility] Comment on above: Performed By: #### A 1C #### [facility] [address] [place], [place] [address] Haley Hayley LDL CALC NORMAL SEE BELOW Normal [facility] Comment on above: Result Comment: <100 mg/dl OPTIMAL 100 - 129 mg/dl NEAR OR ABOVE OPTIMAL 130 - 159 mg/dl BORDERLINE HIGH 160 - 189 mg/dl HIGH >190 mg/dl VERY HIGH Performed By: #### A 1C #### [facility] [address] [place], [place] [address] Haley Hayley Triglyceride [Mass/Vol] 91 mg/dL Normal <=150 [facility] Comment on above: Performed By: #### A 1C #### [facility] [address] [place], [place] [address] Haley Hayley VLDL CALC 18.2 mg/dL Normal [facility] Comment on above: Performed By: #### A 1C #### [facility] [address] [place], [place] [address] Haleydonny Lunaen PROF CHEM 8 (BAS METB)on Anion gap [Moles/Vol] 15.3 mmol/L Normal [facility] Comment on above: Performed By: #### A 1C #### [facility] [address] [place], [place] [address] Haley Hayley Calcium [Mass/Vol] 9.8 mg/dL Normal 8.5-10.1 [facility] Comment on above: Performed By: #### A 1C #### [facility] [address] [place] [address] Haley Hayley Chloride [Moles/Vol] 101 mmol/L Normal 98-107 [facility] Comment on above: Performed By: #### A 1C #### [facility] [address] [place], [place] [address] Haley Hayley CO2 [Moles/Vol] 27.3 mmol/L Normal 21.0-32.0 [facility] Comment on above: Performed By: #### A 1C #### [facility] [address] [place] [address] Haley Hayley Creatinine [Mass/Vol] 0.81 mg/dL Normal 0.55-1.02 [facility] Comment on above: Performed By: #### A 1C #### [facility] [address] [place] [address] Haley Hayley EGFR-AF VINCENTIAN >60 Normal >=60 [facility] Comment on above: Result Comment: Prev iously reported as: (blank) On 11/27/2021 11:29 By DM9 Performed By: #### A 1C #### [facility] [address] [place] [address] Haley Hayley EGFR-NON AF VINCENTIAN >60 Normal >=60 [facility] Comment on above: Result Comment: Prev iously reported as: (blank) On 11/27/2021 11:29 By DM9 Performed By: #### A 1C #### [facility] [address] [place] [address] Haley Hayley Glucose [Mass/Vol] 110 mg/dL Critically high 74-106 [facility] Comment on above: Performed By: #### A 1C #### [facility] [address] [place], [place] [address] Haley Hayley Potassium [Moles/Vol] 3.6 mmol/L Normal 3.5-5.1 [facility] Comment on above: Performed By: #### A 1C #### [facility] [address] [address] Haley Hardy Sodium [Moles/Vol] 140 mmol/L Normal 136-145 [facility] Comment on above: Performed By: #### A 1C #### [facility] [address] [id number] Haley Hardy Urea nitrogen [Mass/Vol] 20.0 mg/dL Critically high 7.0-18.0 [facility] Comment on above: Performed By: #### A 1C #### [facility] [address] [address] Haley Hardy Urea nitrogen/Creatinine [Mass ratio] 24.7 mg/mg Normal [facility] Comment on above: Performed By: #### A 1C #### [facility] [address] [place] [address] Haley Hardy SGOTon 11-27-2021 AST [Catalytic activity/Vol] 21 U/L Normal 15-37 [facility] Comment on above: Performed By: #### A 1C #### [facility] [address] [place] [address] Haley Hardy SGPTon 11-27-2021 ALT [Catalytic activity/Vol] 20 U/L Normal 14-59 [facility] Comment on above: Performed By: #### A 1C #### [facility] [address] [place], [place] [address] Haley Hardy GLYCOHEMOGLOBIN A1Con 2021 ADA RECOMMENDATION ADA THERAPEUTIC TARG ET 6.0 - 7.0 ACTION SUGGESTED > 7.0 Normal [facility] Comment on above: Performed By: #### A 1C #### [facility] [address] [place], [place] [address] Dr. Cassidy Garcia Glucose [Mass/Vol] 146 mg/dL Normal [facility] Comment on above: Performed By: #### A 1C #### [facility] [address] [place], [place] [address] Dr. Cassidy Garcia HbA1c (Bld) [Mass fraction] 6.7 % Critically high <=6.0 [facility] Comment on above: Performed By: #### A 1C #### [facility] [address] [place], [place] [address] Dr. Cassidy Garcia ALBUMINon 11-30-2020 Albumin [Mass/Vol] 4.0 g/dL Normal 3.5-5.0 [facility] Comment on above: Performed By: #### M CRR #### [facility] [address] [place], [place] [address] Haley Hayley CBC AUTO DIFFon 11-30-2020 BASO # 0.0 103/ul Normal 0.0-0.1 [facility] Comment on above: Performed By: #### C BC #### [facility] [address] [place] [address] Haley Hayley Basophils/100 WBC (Bld) 0.6 % Normal 0.2-2.0 [facility] Comment on above: Performed By: #### C BC #### [facility] [address] [place] [address] Haley Hayley EO # 0.2 103/ul Normal 0.0-0.7 [facility] Comment on above: Performed By: #### C BC #### [facility] [address] [place] [address] Haley Hayley Eosinophils/100 WBC (Bld) 2.6 % Normal 0.9-7.0 [facility] Comment on above: Performed By: #### C BC #### [facility] [address] [place] [address] Haley Hayley Erythrocyte distribution width (RBC) [Ratio] 12.9 % Normal 11.0-15.0 [facility] Comment on above: Performed By: #### C BC #### [facility] [address] [place] [address] Haley Hayley Hematocrit (Bld) [Volume fraction] 39.6 % Normal 36.0-48.0 [facility] Comment on above: Performed By: #### C BC #### [facility] [address] [place] [address] Haley Hayley Hemoglobin (Bld) [Mass/Vol] 12.8 g/dL Normal 12.0-16.0 [facility] Comment on above: Performed By: #### C BC #### [facility] [address] [address] Haley Hayley IG # 0.02 10e3/ul Normal 0.00-0.03 [facility] Comment on above: Performed By: #### C BC #### [facility] [address] [address] Haley Hayley IG % 0.3 % Normal 0.0-0.5 [facility] Comment on above: Performed By: #### C BC #### [facility] [address] [place] [address] Haley Hayley LYMPH # 2.0 103/ul Normal 1.2-3.8 [facility] Comment on above: Performed By: #### C BC #### [facility] [address] [place] [address] Haley Hayley Lymphocytes/100 WBC (Bld) 27.1 % Normal 20.5-60.0 [facility] Comment on above: Performed By: #### C BC #### [facility] [address] [place] [address] Haley Hayley MANUAL DIFF REQ NO Normal [facility] Comment on above: Performed By: #### C BC #### [facility] [address] [place] [address] Haley Hayley MCH (RBC) [Entitic mass] 30.2 pg Normal 26.7-34.0 [facility] Comment on above: Performed By: #### C BC #### [facility] [address] [place] [address] Haley Hayley MCHC (RBC) [Mass/Vol] 32.3 g/dL Normal 29.9-35.2 [facility] Comment on above: Performed By: #### C BC #### [facility] [address] [place] [address] Haley Hayley MCV (RBC) [Entitic vol] 93.4 fL Normal 81.0-99.0 [facility] Comment on above: Performed By: #### C BC #### [facility] [address] [place] [address] Halye Hardy MONO # 0.6 103/ul Normal 0.3-0.8 [facility] Comment on above: Performed By: #### C BC #### [facility] [address] [place] [address] Haley Hardy Monocytes/100 WBC (Bld) 8.7 % Normal 1.7-12.0 [facility] Comment on above: Performed By: #### C BC #### [facility] [address] [place] [address] Haley Hardy NEUT # 4.4 103/ul Normal 1.4-6.5 [facility] Comment on above: Performed By: #### C BC #### [facility] [address] [place] [address] Haley Hardy Neutrophils/100 WBC (Bld) 60.7 % Normal 43.0-75.0 [facility] Comment on above: Performed By: #### C BC #### [facility] [address] [place] [address] Haley Hardy Platelet mean volume (Bld) [Entitic vol] 11.4 fL Normal 9.5-13.5 [facility] Comment on above: Performed By: #### C BC #### [facility] [address] [place] [address] Haley Hardy PLT 175 103/ul Normal 150-450 [facility] Comment on above: Performed By: #### C BC #### [facility] [address] [place] [address] Haley Hardy RBC 4.24 106/ul Normal 4.20-5.40 [facility] Comment on above: Performed By: #### C BC #### [facility] [address] [place], [place] [address] Haleydonny Hardy WBC 7.2 103/ul Normal 4.0-11.0 [facility] Comment on above: Performed By: #### C BC #### [facility] [address] [place] [address] Haley Hardy GLYCOHEMOGLOBIN A1Con 2020 ADA RECOMMENDATION ADA THERAPEUTIC TARG ET 6.0 - 7.0 ACTION SUGGESTED > 7.0 Normal [facility] Comment on above: Performed By: #### A 1C #### [facility] [address] [id number] Haley Hayley Glucose [Mass/Vol] 140 mg/dL Normal [facility] Comment on above: Performed By: #### A 1C #### [facility] [address] [place], [place] [address] Haley Hayley HbA1c (Bld) [Mass fraction] 6.5 % Critically high <=6.0 [facility] Comment on above: Performed By: #### A 1C #### [facility] [address] [id number] Haley Hayley LIPID PROFILEon 11-30-2020 CHOL-HDL RATIO NORM SEE BELOW Normal [facility] Comment on above: Result Comment: 3.3 - 4.4 LOW RISK 4.4 - 7.1 AVERAGE RISK 7.1 - 11.0 MODERATE RISK >11.0 HIGH RISK Performed By: #### A ST, ALT, LIPID #### [facility] [address], [place] [address] Haley Hayley Cholesterol [Mass/Vol] 130 mg/dL Normal <=200 [facility] Comment on above: Performed By: #### A ST, ALT, LIPID #### [facility] [address], [place] [address] Haley Hayley Cholesterol in HDL [Mass/Vol] 73 mg/dL Normal [facility] Comment on above: Performed By: #### A ST, ALT, LIPID #### [facility] [address] [place] [id number] Haley Hayley Cholesterol in LDL [Mass/Vol] 40.0 mg/dL Normal [facility] Comment on above: Performed By: #### A ST, ALT, LIPID #### [facility] [address], [place] [address] Haley Hayley Cholesterol.total/C holesterol in HDL [Mass ratio] 1.8 {ratio} Normal [facility] Comment on above: Performed By: #### A ST, ALT, LIPID #### [facility] [address] [id number] Haley Hayley HDL NORMAL > or = 60 mg/dl - LO W CARDIOVASCULAR RISK <40 mg/dl - HIGH CARDIOVASCULAR RISK Normal [facility] Comment on above: Performed By: #### A ST, ALT, LIPID #### [facility] [address] [id number] Haley Hayley LDL CALC NORMAL SEE BELOW Normal [facility] Comment on above: Result Comment: <100 mg/dl OPTIMAL 100 - 129 mg/dl NEAR OR ABOVE OPTIMAL 130 - 159 mg/dl BORDERLINE HIGH 160 - 189 mg/dl HIGH >190 mg/dl VERY HIGH Performed By: #### A ST, ALT, LIPID #### [facility] [address] [address] Haleydonny Hardy Triglyceride [Mass/Vol] 85 mg/dL Normal <=150 [facility] Comment on above: Performed By: #### A ST, ALT, LIPID #### [facility] [address] [address] Haleydonny Lunaen VLDL CALC 17.0 mg/dL Normal [facility] Comment on above: Performed By: #### A ST, ALT, LIPID #### [facility] [address] [id number] Haley Hardy MAGNESIUMon 11-30-2020 Magnesium [Mass/Vol] 1.5 mg/dL Critically low 1.6-2.3 [facility] Comment on above: Performed By: #### A 1C #### [facility] [address] [address] Haley Hardy MICROALB CREAT RATIO RANDOMo n 11-30-2020 mALB <1.3 Normal <=30.0 [facility] Comment on above: Performed By: #### M CRR #### [facility] [address] [id number] Haleydonny Hardy MALB CR RATIO RANGE SEE BELOW Normal [facility] Comment on above: Result Comment: NO M ICROALBUMINURIA 0-29 MG/G CLINICAL MICROALBUMINURIA 30-300 MG/G MACROALBUMINURIA >300 MG/G Performed By: #### M CRR #### [facility] [address], [place] [address] Haley Hayley URINE CREAT 20.84 mg/dL Normal 20.00-300.00 [facility] Comment on above: Performed By: #### M CRR #### [facility] [address], [place] [address] Haley Hayley PHOSPHORUSon 11-30-2020 Phosphate [Mass/Vol] 3.1 mg/dL Normal 2.5-4.5 [facility] Comment on above: Performed By: #### A 1C #### [facility] [address], [place] [address] Haley Hayley PROF CHEM 8 (BAS METB)on Anion gap [Moles/Vol] 16.5 mmol/L Normal [facility] Comment on above: Performed By: #### A 1C #### [facility] [address] [id number] Haley Hayley Calcium [Mass/Vol] 10.0 mg/dL Normal 8.4-10.2 [facility] Comment on above: Performed By: #### A 1C #### [facility] [address] [id number] Haley Hayley Chloride [Moles/Vol] 102 mmol/L Normal 98-107 [facility] Comment on above: Performed By: #### A 1C #### [facility] [address] [id number] Haley Hayley CO2 [Moles/Vol] 26.8 mmol/L Normal 22.0-30.0 [facility] Comment on above: Performed By: #### A 1C #### [facility] [address] [id number] Haley Hayley Creatinine [Mass/Vol] 0.89 mg/dL Normal 0.52-1.04 [facility] Comment on above: Performed By: #### A 1C #### [facility] [address], [place] [address] Haley Hayley EGFR-AF VINCENTIAN >60 Normal >=60 [facility] Comment on above: Performed By: #### A 1C #### [facility] [address] [id number] Haley Hayley EGFR-NON AF VINCENTIAN 60 mL/min/1.73m2 Normal >=60 [facility] Comment on above: Performed By: #### A 1C #### [facility] [address] [id number] Haley Hayley Glucose [Mass/Vol] 87 mg/dL Normal 74-106 [facility] Comment on above: Performed By: #### A 1C #### [facility] [address] [id number] Haley Hayley Potassium [Moles/Vol] 3.3 mmol/L Critically low 3.4-5.0 [facility] Comment on above: Performed By: #### A 1C #### [facility] [address] [place] [address] Haley Hayley Sodium [Moles/Vol] 142 mmol/L Normal 137-145 [facility] Comment on above: Performed By: #### A 1C #### [facility] [address] [address] Haley Hayley Urea nitrogen [Mass/Vol] 18.0 mg/dL Critically high 7.0-17.0 [facility] Comment on above: Performed By: #### A 1C #### [facility] [address] [place] [address] Haley Hayley Urea nitrogen/Creatinine [Mass ratio] 20.2 mg/mg Normal [facility] Comment on above: Performed By: #### A 1C #### [facility] [address] [id number] Haley Hayley SGOTon 11-30-2020 AST [Catalytic activity/Vol] 22 U/L Normal 14-36 [facility] Comment on above: Performed By: #### A ST, ALT, LIPID #### [facility] [address] [id number] Haley Hayley SGPTon 11-30-2020 ALT [Catalytic activity/Vol] 23 U/L Normal 9-52 [facility] Comment on above: Performed By: #### A ST, ALT, LIPID #### [facility] [address] [id number] Haley Hayley UA RANDOM W/MICROSCOPICon BACTERIA SMALL Abnormal NONE SEEN [facility] Comment on above: Performed By: #### U AMIC #### [facility] [address] [place] [address] Haley Hayley Bilirubin Ql (U) Negative Normal NEGATIVE [facility] Comment on above: Performed By: #### U AMIC #### [facility] [address] [address] Haley Hayley CAST NONE SEEN Normal NONE SEEN [facility] Comment on above: Performed By: #### U AMIC #### [facility] [address] [place] [address] Haley Hayley Clarity (U) CLEAR Normal CLEAR [facility] Comment on above: Performed By: #### U AMIC #### [facility] [address] [place] [address] Haley Hayley Color (U) LT. YELLOW Normal YELLOW [facility] Comment on above: Performed By: #### U AMIC #### [facility] [address] [address] Haley Hayley Crystals LM Nom (Urine sed) NONE SEEN Normal NONE SEEN [facility] Comment on above: Performed By: #### U AMIC #### [facility] [address] [place], [place] [id number] Haley Hayley Epithelial cells LM Ql (Urine sed) FEW Abnormal NONE SEEN /RARE [facility] Comment on above: Performed By: #### U AMIC #### [facility] [address] [place] [address] Haley Hayley Glucose Ql (U) Negative Normal NEGATIVE [facility] Comment on above: Performed By: #### U AMIC #### [facility] [address] [place], [place] [id number] Haley Hayley Hemoglobin Ql (U) SMALL Abnormal NEGATIVE [facility] Comment on above: Performed By: #### U AMIC #### [facility] [address] [place], [place] [address] Haley Hayley Ketones Ql (U) Negative Normal NEGATIVE [facility] Comment on above: Performed By: #### U AMIC #### [facility] [address] [place] [address] Haley Hayley LEUKOCYTES Negative Normal NEGATIVE [facility] Comment on above: Performed By: #### U AMIC #### [facility] [address] [place], [place] [id number] Haley Hayley MUCOUS NONE SEEN Normal NONE SEEN [facility] Comment on above: Performed By: #### U AMIC #### [facility] [address] [place] [address] Haley Hayley Nitrite Ql (U) Negative Normal NEGATIVE [facility] Comment on above: Performed By: #### U AMIC #### [facility] [address] [place] [address] Haley Hayley pH (U) 5.5 [pH] Normal 5-9 [facility] Comment on above: Performed By: #### U AMIC #### [facility] [address] [place] [address] Haley Hayley RBC 0-2 Normal 0-2 [facility] Comment on above: Performed By: #### U AMIC #### [facility] [address] [place] [address] Haley Hayley SPEC GRAVITY 1.010 Normal 1.005-<=1.025 [facility] Comment on above: Performed By: #### U AMIC #### [facility] [address] [place] [address] Haley Hayley UA PROTEIN Negative Normal NEGATIVE/ TRACE [facility] Comment on above: Performed By: #### U AMIC #### [facility] [address] [place] [address] Haley Hayley Urobilinogen Qn (U) 0.2 {Rivera'U}/dL Normal 0.2 - 1. 0 [facility] Comment on above: Performed By: #### U AMIC #### [facility] [address] [place] [address] Haley Hayley WBC 0-2 Abnormal NONE SEEN [facility] Comment on above: Performed By: #### U AMIC #### [facility] [address], [place] [address] Haley Hardy URIC ACID SERUMon 11-30-2020 Urate [Mass/Vol] 4.8 mg/dL Normal 2.5-6.2 [facility] Comment on above: Performed By: #### A 1C #### [facility] [address], [place] [address] Haley Hardy Vital Signs Date Time Vital Sign Value Performing Clinician Karoni lity 05-28-2023 09:17-0500 Body height 152.4 cm Ismael Nazario MD Work Phone: [facility] 05-28-2023 09:17-0500 Body mass index (BMI) [Ratio] 19.92 kg/m2 Ismael Nazario MD Work Phone: [facility] 05-28-2023 09:17-0500 Body temperature 97.5 [degF] Ismael Nazario MD Work Phone: [facility] 05-28-2023 09:17-0500 Body weight 46.27 kg Ismael Nazario MD Work Phone: [facility] 05-28-2023 09:17-0500 Diastolic blood pressure 60 mm[Hg] Ismael Nazario MD Work Phone: [facility] 05-28-2023 09:17-0500 Heart rate 99 /min Ismael Nazario MD Work Phone: [facility] 05-28-2023 09:17-0500 SaO2% (BldA) [Mass fraction] 98 % Ismael Nazario MD Work Phone: [facility] 05-28-2023 09:17-0500 Systolic blood pressure 120 mm[Hg] Ismael Nazario MD Work Phone: [facility] Healthcare Encounters Encounter Date Encounter Type Care Provider Facility Start: 11-25-2023 End: 11-25-2023 ambulatory ISMAEL NAZARIO Not Available Start: 08-21-2023 End: 08-21-2023 ambulatory FARRAH A PETITTI Not Available Start: 08-13-2023 End: 08-13-2023 ambulatory ISMAEL NAZARIO Not Available Start: 06-24-2023 End: 06-24-2023 ambulatory SASHA KOCH Not Available Start: 06-12-2023 End: 06-12-2023 ambulatory FARRAH Avila PETITTI Not Available Start: 05-30-2023 Clinisync Result Encounter Ismael Nazario MD Work Phone: [facility] Unsolicited Start: 05-30-2023 Clinisync Result Encounter Ismael Nazario MD Work Phone: [facility] Unsolicited Start: 05-28-2023 Bamboo flowsheet Ismael Nazario MD Work Phone: [facility] Start: 05-28-2023 Bamboo flowsheet Ismael Nazario MD Work Phone: [facility] Start: 05-28-2023 End: 05-28-2023 Office outpatient visit 25 minutes Ismael Nazario MD Work Phone: [facility] Comment on above: Type 2 diabetes liu itus with hyperglycemia, without long-term current use of insulin (CMS/HCC) (Primary Dx); Essential hypertension, benign (CMS/HCC); Lumbosacral spondylosis without myelopathy; Arthritis, gouty; Seasonal allergic rhinitis due to pollen; Oral phase dysphagia Start: 05-28-2023 End: 05-28-2023 ambulatory ISMAEL NAZARIO Not Available Start: 04-24-2023 End: 04-24-2023 ambulatory Tim Matias Facility:[facility] Start: 04-24-2023 End: 04-24-2023 ambulatory MD Tim Matias Work Phone: [facility] Work Phone: Start: 04-24-2023 End: 04-24-2023 Departed Referred MD Tim Matias Work Phone: [facility] [place] Work Phone: Start: 03-28-2023 End: 03-28-2023 ambulatory [...] 11/25/2023 9:00 AM EDT Office Visit [facility] [address] [place] [address] Ismael Nazario MD [address] [place] [address] [facility] Start: 06-12-2023 End: 06-12-2023 Patient encounter procedure 06/12/2023 1:00 PM EST Office Visit [facility] [address] [place] [address] Farrah Kaufman MD [address] [place] [address] [facility] Start: 05-28-2023 End: 05-28-2024 Hemoglobin A1c measurement Hemoglobin A1c Lab Routine Type 2 diabetes mellitus with hyperglycemia, without long-term current use of insulin ([facility]) Expected: 05/28/2023 (Approximate), Expires: 05/28/2024 [facility] Work Phone: Comment on above: Expected: 05/28/2023 (Approximate), Expires: 05/28/2024 Start: 05-28-2023 End: 05-28-2023 Patient encounter procedure 05/28/2023 9:15 AM EST [facility] Visit [facility] [address] [place] [id number] Ismael Nazario MD [address] [place] [phone] Arrived [facility] Comment on above: Arrived Start: 1953 Urine screening for protein Diabetes: Urine Protein Screening [facility] Start: 1944 Glaucoma screening Diabetes: R etinopathy Screening [facility] Start: 1934 Hemoglobin A1c measurement Diabetes: Hemoglobin A1C [facility] Start: 1934 Medicare Annual Wellness (AWV) Medicare Annual Wellness (AWV) [facility] Payers Date Payer Category Payer Self-pay 2023 Unknown [id number] 2022 Unknown [employer] [id number] 2022-Present [address] [employer] [place] [address] [id number] 1999 Medicare MEDICARE MEDICAR E PART B [id number] 1999-Present [address] [address] [place] [address] Medicare [id number] 1959 Medicare [id number] 1959 Unknown [id number] 1934 Unknown [id number] 3 1934 Unknown [id number] 3 1934 Unknown [id number] 3 1934 Unknown [id number] 3 1934 Unknown [id number] 59 1934 Unknown [id number] 59 1934 Unknown [id number] 59 1934 Unknown [id number] [id number] 59 1934 Unknown [id number] [id number] 59 1934 Unknown [id number] 59 1934 Unknown [id number] 59 Medicare Medicare Outpatient [id number] Unknown [id number] 1 Social History Date Type Detail Facility Tobacco smoking stat [facility] Unknown if ever smoked [facility] Work Phone: Start: 1935 Sex Assigned At Female F [facility] Start: 10-11-2022 End: 05-28-2023 Tobacco smoking status RIIS Never smoked tobacco [facility] Start: 04-26-2023 End: 05-28-2023 Alcohol intake Lifetime non-drinker (finding) [facility] Start: 04-26-2023 End: 05-28-2023 History of Social function [facility] Start: 04-26-2023 End: 05-28-2023 Tobacco use panel [facility] Start: 1935 Sex Assigned At Not on file [facility] Start: 05-28-2023 Tobacco use and exposure Smokeless tobacco non-user [facility] History of Present illness Narrative 05-28-2023 Ismael Nazario MD - 05/28/2023 10:03 AM Rober Nazario MD - 05/28/2023 10:02 AM Rober Nazario MD - 05/28/2023 10:02 AM Rober Nazario MD - 05/28/2023 10:02 AM EST Note Date & Type Note Facility 05-28-2023 History of Presen t illness Narrative Associated Problem(s): Type 2 diabetes mellitus with hyperglycemia, without long-term current use of insulin ([facility]) Not checking BS and due for A1C. Stick to ADA diet and limit carbs. Associated Problem(s): Oral phase dysphagia Occasional problems swallowing and evidence of postnasal drip. Resume flonase. If persists will order speech therapy swallow evaluation. Associated Problem(s): Lumbosacral spondylosis without myelopathy Pain stable and use OTC PRN. Associated Problem(s): Essential hypertension, benign ([facility]) BP controlled and monitor PRN. Associated Problem(s): [...] Facility Evaluation note No assessment information availa [facility] Work Phone: Evaluation note Note Date & Type Note Facility Evaluation note Diagnosis Type 2 diabetes mellitus with hyperglycemia, without long-term current use of insulin (CMS/HCC)- Primary Essential hypertension, benign (CMS/[facility]) Essential hypertension, benign Lumbosacral spondylosis without myelopathy [...] and content) DATE CREATED AUTHOR 11/28/2021 [facility] DATE CREATED AUTHOR AUTHOR'S ORGANIZ ATION 06/11/2023 [facility] DATE CREATED AUTHOR AUTHOR'S ORGANIZ ATION 11/26/2023 [facility] [employer] Care Teams (unrecognized sec tion and content) Team Status: Inactive Member Role Status Dates Tim Matias MD Attending Provider Active [employer] Relationship Specialty Start Date End Date Ismael Nazario MD [address] [place] [phone] PCP - General Family Medicine 05/28/23 [employer] Relationship Specialty Start Date End Date Ismael Nazario MD [address] [place] [phone] PCP - General Family Medicine 05/28/23 [employer] Splitter Relationship Specialty Start Date End Date Ismael Nazario MD [address] [place] [phone] PCP - General Family Medicine 05/28/23 Goals [...] BE BASED ON THE PRIMARY CLINICAL RECORDS. [facility]. provides no warranty or guarantee of the accuracy or completeness of information in this document.
--- NOTE | 2024-02-01 06:02 | ED_ITS ---
HPI HPI - General Adult General Chief complaint: Fall Stated complaint: FALL Time Seen by Provider: 02/01/24 05:41 Source: patient Mode of arrival: walk-in Limitations: no limitations History of Present Illness HPI narrative: 88-year-old female presented to the emergency department to be evaluated after a fall. She has no complaints. She lives by herself at home and she got up to go to the bathroom and she states she was not fully awake and she fell and could not get herself up. Paramedics came out and got her up off of the floor. She did not have any complaints for them but they recommended she come to the hospital to be checked out. No headache or neck pain or injury to her arms or legs. She is accompanied by her family. She normally gets around with a walker. Related Data Home Medications ?Medication ?Instructions ?Recorded ?Confirmed allopurinol 100 mg tablet 100 mg PO DAILY 02/01/24 02/01/24 amlodipine 5 mg tablet 5 mg PO DAILY 02/01/24 02/01/24 atorvastatin 10 mg tablet 10 mg PO DAILY 02/01/24 02/01/24 metformin 500 mg tablet 500 mg PO TID 02/01/24 02/01/24 torsemide 5 mg tablet 2.5 mg PO DAILY 02/01/24 02/01/24 Allergies Allergy/AdvReac Type Severity Reaction Status Date / Time Penicillins Allergy Hives Verified 02/01/24 05:46 Opioid HPI Opioid Management Most Recent Opioid Data: No Data to Display Review of Systems ROS Narrative A ten point review of systems is negative except as noted above. Exam Narrative Exam Narrative: Nurses note and vital signs reviewed and patient is not hypoxic. General: The patient appears in no apparent distress. Patient is resting comfortably on cart. Skin: Warm, dry, no pallor noted. There is no rash noted. Head: Normocephalic, atraumatic. Cervical spine nontender Eye: Normal conjunctiva, no drainage Ears, Nose, Mouth, and Throat: oral mucosa is moist. Nares patent. Cardiovascular: Regular Rate and Rhythm Respiratory: Patient is in no distress, no accessory muscle use, lungs are clear to auscultation, no wheezing, rales or rhonchi Back: non-tender GI: Soft and nontender Musculoskeletal: All joints in her extremities have full range of motion. No palpable tenderness to bilateral arms and bilateral legs. Neurological: Awake alert and fully oriented Psychiatric: Cooperative Constitutional Vital Signs, click to edit/add: Last Vital Signs Temp 98.2 F 02/01/24 05:41 Pulse 101 H 02/01/24 05:41 Resp 18 02/01/24 05:41 BP 172/83 H 02/01/24 05:41 Pulse Ox 98 02/01/24 05:41 O2 Del Method Room Air 02/01/24 05:41 Course Vital Signs Vital signs: Vital Signs Temperature 98.2 F 02/01/24 05:41 Pulse Rate 101 H 02/01/24 05:41 Respiratory Rate 18 02/01/24 05:41 Blood Pressure 172/83 H 02/01/24 05:41 Pulse Oximetry 98 02/01/24 05:41 Oxygen Delivery Method Room Air 02/01/24 05:41 Temperature 98.2 F 02/01/24 05:41 Pulse Rate 101 H 02/01/24 05:41 Respiratory Rate 18 02/01/24 05:41 Blood Pressure 172/83 H 02/01/24 05:41 Pulse Oximetry 98 02/01/24 05:41 Oxygen Delivery Method Room Air 02/01/24 05:41 Medical Decision Making MDM Narrative Medical decision making narrative: She has a normal exam and has no complaints and is able to be discharged home. Treatment diagnosis and follow-up were discussed with the patient and her family. Differential Diagnosis Differential Diagnosis: Fall, generalized weakness Discharge Plan Discharge Chief Complaint: Fall Clinical Impression: Fall Patient Disposition: Home, Self-Care Time of Disposition Decision: 06:02 Condition: Good Mode of Transportation: Private Vehicle Prescriptions / Home Meds: No Action allopurinol 100 mg tablet 100 mg PO DAILY amlodipine 5 mg tablet 5 mg PO DAILY atorvastatin 10 mg tablet 10 mg PO DAILY metformin 500 mg tablet 500 mg PO TID torsemide 5 mg tablet 2.5 mg PO DAILY Print Language: Israeli Instructions: Fall Prevention for Older Adults (ED) Referrals: Ismael Oglesby MD [Primary Care Provider] - 1 week
== END 2024-02-01 06:20 | disposition home or self-care (01) ==
PROVIDERS: Emergency Provider Emergency Medicine; PCP Family Medicine
DX: Z04.3 Encounter for examination and observation following other accident (principal)
CPT/HCPCS: 99281